=== PATIENT | female | born 1955 | race Caucasian/White ===

== ENCOUNTER 2016-11-15 08:15 | Day surgery (SDC) | payer BC ==
[~2016-11-15 08:15] MED LIST: Buffered Lidocaine 1% SYR 3ML* 3 ML/SYR SYRINGE INTRADERM ONE; Dexamethasone IV* 4 MG/ML 1 ML (4 MG) IV SLOW PU ONE; Famotidine IV* 10 MG/ML 2 ML (20 mg) IV ONE
[2016-11-15] MEDS ORDERED: ceFAZolin 2 GM PREMIX (*) 2 GM/50 ML BAG IVPB ONE (08:28)
[2016-11-15] MEDS ORDERED: Famotidine IV* 10 MG/ML 2 ML (20 mg) ONE (08:28)
[2016-11-15] MEDS ORDERED: Dexamethasone IV* 4 MG/ML 1 ML (4 MG) ONE (08:29)
[2016-11-15] MEDS ORDERED: Midazolam* 1 MG/ML 2 ML VIAL (2 MG) ONE (10:15)
[2016-11-15] MEDS ORDERED: Chloroprocaine 2%* 20 ML VIAL ONE (10:17)
[2016-11-15] MEDS ORDERED: Bupivacaine 0.25% SDV* 30 ML ONE (10:34)
[2016-11-15] MEDS ORDERED: Bupivacaine 0.25% EPI 200,000* 30 ML SDV ONE (10:34)
[2016-11-15] MEDS ORDERED: Phenylephrine IV* 40 MCG/ML 10 ML SYRINGE ONE (11:57)
[2016-11-15] MEDS ORDERED: methylPREDNISolone ACETATE 80* 80 MG/ML 1 ML VIAL ONE (12:24)
[2016-11-15] MEDS ORDERED: Ondansetron ODT TAB* 4 MG PO PRN (12:47)
[2016-11-15] MEDS ORDERED: fentaNYL* 50 MCG/ML 2 ML VIAL (100 MCG VIAL) IV PRN (12:47)
[2016-11-15] MEDS ORDERED: celeCOXIB CAP* 100 MG ONE (12:48)
[2016-11-15] MEDS ORDERED: celeCOXIB CAP* 200 MG PO ONE (12:48)
[2016-11-15 14:43] VITALS: BP 151/65
--- NOTE | 2016-11-19 22:49 | OP ---
OPERATIVE REPORT: DATE OF OPERATION: 11/15/16 DATE OF : 59 SURGEON: Danita Suarez MD PRINT CONTROLLER: CELINA Torre An automobile mechanic assistant was needed for the entirety of the case. ANESTHESIOLOGIST: Dr. Masters. ANESTHESIA: Spinal with local MAC. PRE-OP DIAGNOSIS: Medial meniscus tear. POST-OP DIAGNOSES: Arthritis as well as medial meniscal tear and lateral meniscus tear. OPERATIVE PROCEDURE: Arthroscopy with partial medial and partial lateral meniscectomy, chondroplast y of at least two compartments as well as plica excision. INDICATIONS: Marla is a 61-year-old female that has had right knee pain for several months. She h as tried injection and antiinflammatories. She has failed conservative management. She is very act dae and it is limiting her activities. Risks and benefits of the surgery were discussed at length an d she has elected to proceed with surgery. Risks included but were not limited to bleeding, infecti on, damage to nerves, vessels, surrounding structures, wound nonhealing, persistent pain, need for f urther surgery, risk of anesthesia, risk of DVT. She has elected to proceed. COMPLICATIONS: None. ESTIMATED BLOOD LOSS: Minimal. DESCRIPTION OF PROCEDURE: The patient was greeted in the preoperative area by the attending surgeon . Correct extremity was marked and consent was confirmed. The patient was brought back to the oper ating suite, where she underwent spinal anesthesia, which she tolerated without difficulty. Examina tion of the knee was then done, there was a small effusion on the right knee. Range of motion was 0 to 120 degrees. Stable ligamentous exam, calf was soft, nontender, mild effusion. An unsterile to urniquet was placed high on the proximal thigh. The lateral post was placed. The right leg was the n prepped and draped in the usual sterile fashion beginning with chlorhexidine soap, scrub, and alco hol wipe, and a final prep of ChloraPrep. After appropriate surgical pause indicating side, site, procedure, administration of antibiotics, th e anterolateral portal was made sharply with an 11 blade. Scope was introduced through the joint. The joint was examined. There were grade 1 to 2 changes of the patellofemoral joint with mild unsta ble flaps. The medial and lateral gutters were intact without any loose debris. Attention was dire cted to the medial compartment, where there were areas of grade 2 and grade 3 changes with unstable flaps. There was an unstable meniscal tear, which was a radial split tear that did not go all the w ay to the root. The shaver was then brought in using anteromedial portals. The ACL and PCL were in tact. The shaver was used to do a small chondroplasty of the medial femoral condyle to remove the u nstable flaps. The medial meniscus was debrided back using biters and rachell to a stable layer. The re were grade 2 to 3 changes in the medial femoral condyle and grade 2 changes of the lateral platea u. Attention was directed to the lateral meniscus, where there was unstable fraying as well as part ial tearing of the root, this was debrided back using the shaver. The lateral compartment had grade 0 to 1 changes on the femoral compartment and grade 1 to 2 changes on the tibial compartment. There was a large plica that was apparent on the medial aspect of the knee, which was debrided back using the shaver and the electrocautery device. Once this was released, it exposed the medial femoral co ndyle that had some mild inflammation from the rubbing. The undersurface of the patella then underw ent small chondroplasty to remove the unstable flaps. Once the debridement was complete, the portal s were closed with 3-0 nylon. The wound was intra-articularly injected with 80 mg of Depo-Medrol an d 30 cc of 0.25% Marcaine. Sterile dressings were applied. She was then awoken from anesthesia, she was watched during the entire case, and she was transferred to the PACU in stable condition. POSTOPERATIVE PLAN: She will be weightbearing as tolerated. She will be allowed to work on her ran ge of motion. We will place her on physical therapy after she returns for a postop visit. DVT prop hylaxis discussed but deferred due to no previous personal or family history. She will be discharge d on pain medication. I will see the patient back in 10 to 14 days. [id number]/[facility] #: [id number]
== END 2016-11-15 14:12 | disposition home or self-care (01) ==
LOC: OREAST 08:15
PROVIDERS: ATTEND Orthopaedic Surgery
DX: M23.231 Derangement of other medial meniscus due to old tear or injury, right knee (principal); M23.200 Derangement of unspecified lateral meniscus due to old tear or injury, right knee; Z87.891 Personal history of nicotine dependence; G47.33 Obstructive sleep apnea (adult) (pediatric)
CPT/HCPCS: 88304; A9270-GY; J0690; J1040; J1100; J2250; J2400

== ENCOUNTER 2017-08-04 12:26 | Inpatient (IN) | payer BC ==
--- NOTE | 2017-07-21 20:11 | HP ---
HISTORY AND PHYSICAL: DATE OF ADMISSION/SURGERY: 08/04/17 DATE OF OFFICE VISIT: 07/20/17 SURGEON: Belgica Gomez MD* (dictated by CELINA Balbuena). PROCEDURE: Right total knee arthroplasty. CHIEF COMPLAINT: Right knee pain. HISTORY OF PRESENT ILLNESS: Ms. Felton is a 61-year-old female with complaints of right knee pain secondary to advanced osteoarthritis. She has failed conservative management and has elected to proceed with a right total knee arthroplasty. PAST MEDICAL HISTORY: Sleep apnea, GERD, and diverticulitis. PAST SURGICAL HISTORY: Cholecystectomy, bilateral knee arthroscopies, colon resection, cyst removal from the posterior aspect of the left knee, and a bladder sling. CURRENT MEDICATIONS: 1. Meclizine 25 mg as needed every 8 hours. 2. Tegretol 200 mg twice daily. 3. VESIcare 10 mg daily. 4. Omeprazole 40 mg daily. 5. Probiotic daily. 6. Solodyn 115 mg 3 times a week. 7. Celebrex 200 mg twice daily. 8. Glucosamine/chondroitin. 9. Fiber. 10. Tylenol. 11. Carbamazepine 200 mg daily. ALLERGIES: To CODEINE causing nausea. FAMILY HISTORY: Diabetes, hypertension, and colon cancer. SOCIAL HISTORY: A 61-year-old female lives with her . 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 She does not smoke or use drugs. Uses occasional alcohol. REVIEW OF SYSTEMS: A complete 14-point review of systems was reviewed with the patient, was positive for GERD. She denies history of DVT, PE, or anesthesia problems. PHYSICAL EXAMINATION GENERAL: She is well developed, well nourished, in no acute distress. VITAL SIGNS: She stands 5 feet 6 inches tall, weighs 160 pounds. Her blood pressure is 124/60, heart rate is 80. HEENT: Normocephalic, atraumatic. NECK: Supple. PULMONARY: Lungs are clear to auscultation bilaterally. CARDIO: Regular rate and rhythm. ABDOMEN: Soft, nontender, and nondistended. MUSCULOSKELETAL: Right lower extremity skin is intact. There are no open wounds or abrasions. She has moderate joint effusion. Tenderness over the medial and lateral joint line. 2+ dorsalis pedis pulses, intact sensation, and her lower extremity muscle group strengths are intact at 5/5. NEUROLOGIC: Alert and oriented x3. Cranial nerves II through XII are intact. ASSESSMENT AND PLAN: Ms. Felton is a 61-year-old female with complaints of right knee pain secondary to advanced osteoarthritis. She has failed conservative management and has elected to proceed with a right total knee arthroplasty, which is scheduled for 08/04/[address] Gomez discussed the risks and benefits of the surgery at today's visit and all of her questions were answered. Coumadin, Percocet, and Colace were sent to the pharmacy for postoperative pain control and DVT prophylaxis. She will see Dr. Gomez back 2 weeks after the surgery. CELINA BALBUENA [id number]/[facility] #: [id number] MTDD
[~2017-08-04 12:26] MED LIST changes: +Buffered Lidocaine 0.9% SYRIN* 5 ML/SYR SYRINGE INTRADERM ONE; -Buffered Lidocaine 1% SYR 3ML* 3 ML/SYR SYRINGE INTRADERM ONE; -Dexamethasone IV* 4 MG/ML 1 ML (4 MG) IV SLOW PU ONE; +Metoclopramide TAB* 10 MG PO ONE; +Scopolamine 1.5 mg* PATCH TRANSDERM ONE
[2017-08-04] MEDS ORDERED: Metoclopramide TAB* 10 MG ONE (12:29)
[2017-08-04] MEDS ORDERED: Famotidine IV* 10 MG/ML 2 ML (20 mg) ONE (12:29)
[2017-08-04] MEDS ORDERED: Buffered Lidocaine 0.9% SYRIN* 5 ML/SYR SYRINGE ONE (12:29)
[2017-08-04] MEDS ORDERED: ceFAZolin 2 GM PREMIX (*) 2 GM/50 ML BAG IVPB ONE (12:30)
[2017-08-04] MEDS ORDERED: fentaNYL* 50 MCG/ML 2 ML VIAL (100 MCG VIAL) ONE (13:36)
[2017-08-04] MEDS ORDERED: Midazolam* 1 MG/ML 5 ML VIAL (5 MG) ONE (13:36)
[2017-08-04] MEDS ORDERED: Ketorolac INJ* 30 MG/ML 1 ML VIAL ONE (13:36)
[2017-08-04] MEDS ORDERED: Propofol* 10 MG/ML 20 ML BTL IV PUSH ONE (13:36)
[2017-08-04] MEDS ORDERED: Dexamethasone IV* 4 MG/ML 1 ML (4 MG) ONE (13:36)
[2017-08-04] MEDS ORDERED: Ondansetron INJ* 2 MG/ML VIAL ONE (13:36)
[2017-08-04] MEDS ORDERED: KETAMINE HCL* 50 MG/ML 10 ML VIAL ONE (13:36)
[2017-08-04] MEDS ORDERED: Lidocaine 2% PF * 5 ML VIAL ONE (13:36)
[2017-08-04] MEDS ORDERED: HYDROmorphone INJ* 1 MG/ML CARPUJECT SYRINGE ONE (13:39)
[2017-08-04] MEDS ORDERED: Scopolamine PATCH Remove* 1 NOTE MISC PATCH OFF SCH (15:00)
[2017-08-04] MEDS ORDERED: Scopolamine 1.5 mg* PATCH TRANSDERM SCH (15:00)
[2017-08-04] MEDS ORDERED: Scopolamine 1.5 mg* PATCH ONE (15:01)
[2017-08-04] MEDS ORDERED: Morphine PF AMP (0.5MG/ML)* 5 MG/10 ML AMP ONE (15:59)
[2017-08-04] MEDS ORDERED: Bupivacaine 0.5% SDV PF* 30 ML VIAL ONE (15:59)
[2017-08-04] MEDS ORDERED: Midazolam* 1 MG/ML 2 ML VIAL (2 MG) ONE ×2 (16:27→17:59)
[2017-08-04] MEDS ORDERED: Phenylephrine IV* 40 MCG/ML 10 ML SYRINGE ONE (16:46)
[2017-08-04] MEDS ORDERED: Propofol* 500 MG/50 ML BTL ONE (16:47)
[2017-08-04] MEDS ORDERED: Phenylephrine INJ* 10 MG/ML 1 ML VIAL (10 MG) ONE (16:59)
[2017-08-04] MEDS ORDERED: PROCHLORPERAZINE INJ 5 MG/ML 2 ML VIAL IV PRN (17:26)
[2017-08-04] MEDS ORDERED: diPHENhydraMINE IV* 50 MG/ML 1 ml VIAL (BENADRYL) IV PRN ×2 (17:26→17:28)
[2017-08-04] MEDS ORDERED: fentaNYL* 50 MCG/ML 2 ML VIAL (100 MCG VIAL) IV PRN (17:26)
[2017-08-04] MEDS ORDERED: Ondansetron INJ* 2 MG/ML VIAL IV PRN ×2 (17:26→17:28)
[2017-08-04] MEDS ORDERED: Ketorolac INJ* 30 MG/ML 1 ML VIAL IV PRN (17:28)
[2017-08-04] MEDS ORDERED: EPHEDrine (Pressors)* 50 MG/ML VIAL IV PUSH PRN (17:28)
[2017-08-04] MEDS ORDERED: oxyCODONE/Acetamin 5/325 MG* TAB PO PRN (17:28)
[2017-08-04] MEDS ORDERED: Naloxone* 0.4 MG/ML 1 ML VIAL IV PRN (17:34)
[2017-08-04] MEDS ORDERED: Ropivacaine* 300 MG in NS 0.9% 250 ML* 240 ML EPIDURAL SCH (18:00)
[2017-08-04] MEDS ORDERED: Polyethylene Glycol 3350* 17 GM PACKET PO PRN (18:09)
[2017-08-04] MEDS ORDERED: Acetaminophen TAB* 325 MG PO PRN (18:09)
[2017-08-04] MEDS ORDERED: Bisacodyl SUPP* 10 MG SUPP PR PRN (18:09)
--- NOTE | 2017-08-04 19:36 | RAD ---
INDICATION: Total right knee replacement surgery. TECHNIQUE: 2 views of the right knee were obtained. FINDINGS: The patient is status post total right knee replacement surgery. The bones and prostheses are in normal alignment. There is a surgical drain anterior to the distal femur. There is a small amount of air within the soft tissues consistent with the patient's recent surgery. IMPRESSION: STATUS POST TOTAL RIGHT KNEE REPLACEMENT SURGERY.
[2017-08-04] MEDS ORDERED: NON FORMULARY MED* (Omeprazole [Omeprazole] 40 MG) PO SCH (21:00)
[2017-08-04] MEDS ORDERED: Warfarin TAB(*) 6 MG PO ONE (22:00)
[2017-08-04] MEDS: Docusate CAP* 100 MG PO SCH (22:25)
--- NOTE | 2017-08-04 22:55 | CONS ---
CC: Dr. Gomez; Sejal Cheng NP * CONSULTATION REPORT: DATE OF CONSULT: 08/04/17 PRIMARY CARE PROVIDER: Sejal Cheng NP ATTENDING PHYSICIAN: Dr. Edilson Selby (dictated by Aba Sheth NP). PHYSICIAN REQUESTING CONSULT: Dr. Belgica Gomez. REASON FOR CONSULT: Co-medical management in a patient with a history of sleep apnea. HISTORY OF PRESENT ILLNESS: Ms. Felton is a 62-year-old female with a past medical history significant for untreated sleep apnea, GERD, diverticulitis, trigeminal neuralgia, migraines, rosacea, IBS, vitamin D deficiency, and degenerative joint disease, who presented to the hospital today for an elective right total knee arthroplasty with Dr. Gomez. The patient states that leading up to the surgery, she has been in her usual state of health. She denies any fever, chills, shortness of breath, chest pain, nausea, vomiting, and diarrhea. Postoperatively, she is feeling well, denies any pain, but reports numbness and tingling to bilateral lower extremities due to her spinal anesthesia. The hospitalists were asked to assist with the management of this patient during her postoperative period. PAST MEDICAL HISTORY: 1. Sleep apnea, untreated. 2. GERD. 3. Diverticulitis. 4. Trigeminal neuralgia. 5. History of urinary stress incontinence. 6. Migraine. 7. Rosacea. 8. IBS. 9. Vitamin D deficiency. 10. Degenerative joint disease. PAST SURGICAL HISTORY: 1. Status post cholecystectomy in 2011. 2. Status post bilateral knee arthroscopies. 3. Status post colon resection, 2012. 4. Status post cyst removal from posterior aspect of her left knee at age 10. 5. Status post bladder sling in 2013. HOME MEDICATIONS: Include: 1. Meclizine 25 mg oral as needed every 8 hours for dizziness. 2. Tegretol 100 mg oral every morning. 3. VESIcare 10 mg oral daily. 4. Omeprazole 40 mg oral daily 5. Probiotic 4 mg oral every evening. 6. Solodyn mg 3 times weekly. 7. Celebrex 200 mg oral every evening. 8. Glucosamine chondroitin 1 tablet oral twice daily. 9. Fiber 625 mg oral every evening. 10. Tylenol 500 mg oral daily as needed for pain. ALLERGIES: CODEINE causes nausea. FAMILY HISTORY: The patient's mother had a history of diabetes and suspected colon cancer. Her maternal grandfather had a history of myocardial infarction. Her maternal aunt with a history of colon cancer. Her paternal family history is unknown. SOCIAL HISTORY: She is a former smoker. She quit smoking 15 years ago. Prior to that, she had a 5-abhf-v-day 20-year smoking history. She drinks 1 to 2 alcoholic beverages daily. She denies recreational drug use. She lives with her . Her daughter, Glenis, and sons, Lela and Larry, will be her surrogate decision makers in the event if she is unable to make decisions for herself. REVIEW OF SYSTEMS: I performed a 14-point review of systems. The pertinent positives and negatives are mentioned in the history of present illness. The remaining review of systems is negative. PHYSICAL EXAM: Vital Signs: Temperature 98.4, heart rate 81, respiratory rate 16, O2 sat 100% on room air, blood pressure 145/75. General Appearance: The patient is alert, pleasant, appears to be in no acute distress. HEENT: Normocephalic, atraumatic. Pupils are equal, round, and reactive to light. Extraocular movements are intact. Respiratory: There is no accessory muscle use and the lungs are clear to auscultation bilaterally. Cardiovascular: Regular rate and rhythm. S1, S2 are crisp. There are no murmurs, rubs, or gallops heard. Abdomen: Soft, nontender, nondistended. Bowel sounds are present x4. Extremities: There is no lower extremity edema. DP and PT pulses are 2+ and symmetric. Musculoskeletal: There is no clubbing or cyanosis noted. The patient exhibits equal strength in all extremities. She does have some decreased sensation and movement in her lower extremities due to her spinal anesthesia. She is able to bend both knees. Skin: The patient has a dressing to her right knee that is clean, dry, and intact. Neurological: Cranial nerves II through XII are grossly intact. The patient is able to move all extremities, although her lower extremity movement is limited at this time. Psychological: The patient is calm and cooperative. DIAGNOSTIC STUDIES/LAB DATA: Preoperative labs from 06/03/17, sodium 135, potassium 4.2, chloride 101, CO2 26, BUN 22, creatinine 0.69, glucose 86. White blood cell count 6.8, hemoglobin 12.4, hematocrit 37, and platelet count 310. Preoperative urinalysis is significant for 1+ blood, squamous epithelial cells present, and hyaline casts present. IMPRESSION: Ms. Felton is a 62-year-old female with past medical history significant for untreated sleep apnea, gastroesophageal reflux disease, diverticulitis, trigeminal neuralgia, migraines, rosacea, irritable bowel syndrome, vitamin D deficiency, and degenerative joint disease, who presented to the hospital for an elective right total knee arthroplasty with Dr. Gomez today. The hospitalists were asked to assist with the co-medical management of this patient during her hospitalization. ASSESSMENT/PLAN: 1. Degenerative joint disease. The patient is status post right total knee arthroplasty today. She will have occupational therapy and physical therapy starting tomorrow. She will have a urinary catheter in place through postop day 1. We will trend her hemoglobin and hematocrit. She will be provided with pain management and bowel regimen. Management will be per Orthopedic Surgery. 2. Sleep apnea. The patient has untreated sleep apnea. She states she is unable to tolerate the CPAP. The patient will get capnography monitoring overnight and she will remain in the recovery room for 2 hours postop. 3. Trigeminal neuralgia. The patient will be continued on her home Tegretol. 4. History of gastroesophageal reflux disease. The patient will be continued on her home omeprazole. 5. Fluids, electrolytes, and nutrition. The patient will be on a regular diet. 6. DVT prophylaxis. The patient will be on Lovenox bridged to warfarin per Orthopedic Surgery. 7. Code status. Full code. 9. Disposition. Inpatient with disposition per Orthopedic Surgery. TIME SPENT: Time for this consultation was approximately 45 minutes and greater than half of that was spent with the patient discussing the medications , past medical history, and the events leading up to her arrival to the hospital today. ABA SHETH, ANGI [id number]/[facility] #: [id number] MTDSandy
[2017-08-05] MEDS: ceFAZolin 1 GM VIAL(*) 1 GM in NS 0.9% 50 ML* 50 ML IVPB SCH ×3 (00:05→17:19)
[2017-08-05] MEDS: oxyCODONE/Acetamin 5/325 MG* TAB PO PRN ×6 (03:48→23:49)
[2017-08-05 06:24] LABS: Hematocrit 30 % (35-47); Hemoglobin 10.3 g/dl (12.0-16.0)
[2017-08-05 06:42] LABS: BUN/Creatinine Ratio 15.7 (8-20); Calcium 8.9 mg/dL (8.6-10.3); EGFR African American 109.8 (>60); EGFR Non-African American 85.4 (>60); Potassium 3.8 mmol/L (3.5-5.0)
[2017-08-05] MEDS ORDERED: Omeprazole CAP* 20 MG PO SCH (07:30)
[2017-08-05] MEDS ORDERED: oxyCODONE/Acetamin 5/325 MG* TAB PO PRN (07:35)
[2017-08-05] MEDS: Vitamin THERAPEUTIC TAB PO SCH (07:35)
[2017-08-05] MEDS: Docusate CAP* 100 MG PO SCH ×2 (07:35→19:43)
--- NOTE | 2017-08-05 07:36 | PN ---
Progress Note - Progress Note Date of Service: 08/05/17 SOAP: Subjective: Pt. is alert, reports pain is controlled. Objective: RLE - drain removed, tip intact. distally NVI with +df/pf, full slt, 2+ dp pulse. Vital Signs: Temp Pulse Resp BP Pulse Ox 97.5 F 67 18 123/51 100 08/05/17 03:40 08/05/17 03:40 08/05/17 06:26 08/05/17 03:40 08/05/17 05:44 Laboratory Results - last 24 hr 08/04/17 08/05/17 08/05/17 12:58 05:50 05:50 Hgb 10.3 L Hct 30 L INR (Anticoag Therapy) 0.99 1.02 Sodium Potassium Chloride Carbon Dioxide Anion Gap BUN Creatinine Est GFR ( Amer) Est GFR (Non-Af Amer) BUN/Creatinine Ratio Glucose Calcium 08/05/17 05:50 Hgb Hct INR (Anticoag Therapy) Sodium 133 Potassium 3.8 Chloride 101 Carbon Dioxide 25 Anion Gap 7 BUN 11 Creatinine 0.70 Est GFR ( Amer) 109.8 Est GFR (Non-Af Amer) 85.4 BUN/Creatinine Ratio 15.7 Glucose 100 Calcium 8.9 Assessment: 62 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
--- NOTE | 2017-08-05 08:34 | OP ---
DATE OF OPERATION: 08/04/17 - ROOM #342 DATE OF : 59. SURGEON: Belgica Gomez MD. FAMILY PRESERVATION OFFICER: CELINA Walters. Ms. Mcnally did help throughout the procedure with preparation of the leg, wound retraction, manipulation of the knee, and wound closure. ANESTHESIOLOGIST: Dr. Lutz. ANESTHESIA: Spinal. PREOPERATIVE DIAGNOSIS: Severe endstage degenerative osteoarthritis of the right knee joint. POSTOPERATIVE DIAGNOSIS: Severe endstage degenerative osteoarthritis of the right knee joint. OPERATIVE PROCEDURE: Right total knee arthroplasty. TOURNIQUET TIME: 47 minutes. COMPLICATIONS: None. SPECIMEN: Bone and cartilage from the right knee joint, sent to Pathology. ESTIMATED BLOOD LOSS: 200 mL. HARDWARE USED: This is cemented [employer] total knee arthroplasty hardware. Two packages of Simplex bone cement. For the femur, size 4 narrow right, posterior stabilized Legion Oxinium femoral component. For the tibia, a size 3 right tibial component. For the insert, a 9 mm posterior stabilized articular insert, size 3-4. For the patella, 32 mm 7.5 thickness, 3-peg all- poly patella. BRIEF HISTORY/INDICATIONS: Ms. Felton is a 62-year-old female with over 1 year of severe right knee pain. She underwent arthroscopy and had multiple meniscal tears. At the time of arthroscopy, she was found to have severe patellofemoral and medial compartment arthritis. Plain radiographs showed joint space to be maintained. MRI shows severe degeneration of the cartilage in the medial patellofemoral compartments as well. The patient failed conservative treatment with the antiinflammatories, pain medication, intraarticular steroid injections, intraarticular lubricate injections, ambulatory assistive devices, brace wear, and physical therapy. She elected to undergo right total knee arthroplasty due to continued pain and decreased quality of life. Informed consent was obtained from the patient. She understood the risks of the procedure included, but were not limited to bleeding , infection, damage to nearby structures, continued pain, need for further surgery, intraoperative fracture, nerve palsy, hardware failure or loosening, knee stiffness, loss of motion, stroke, heart attack, blood clot, and . She wished to proceed. INTRAOPERATIVE FINDINGS: Intraoperatively, the patient was noted to have severe arthritis with complete loss of cartilage in the patellofemoral and medical compartments. DESCRIPTION OF PROCEDURE: Ms. Felton was identified in the preanesthesia unit. Her right lower extremity was marked as the correct operative side. Informed consent was signed and placed in the chart. The patient was taken to the operating room and placed under spinal anesthesia. A Cooper catheter was placed. A tourniquet was placed on the right thigh. Right lower extremity was prepped and draped in the usual sterile fashion. Preop time-out was made to correctly identify the patient's side and site. Appropriate perioperative antibiotics were given within 1 hour of incision. The tourniquet was inflated and total tourniquet time was 47 minutes. A midline 12 cm incision was made with a 10 blade and carried down to the extensor mechanism. A new 10 blade was used to make a standard medial parapatellar arthrotomy. Patella was subluxed laterally. Electrocautery was used to subperiosteally elevate the soft tissue off the superomedial tibia in the midsagittal plane. Osteophytes were carefully removed along the medial tibial plateau. The knee was flexed up. The anterior horn of the lateral meniscus and ACL were sharply released. A drill was used to enter the distal femur. Distal femoral intramedullary cutting guide was pinned onto the distal femur. Oscillating saw was used to make the appropriate distal femoral cut. Next, the external rotation guide was pinned on the distal femur and the femur was sized to a size 4. A size 4 multicutting jig was pinned on the distal femur. Oscillating saw was used to make the appropriate 4 chamfer cuts. The tibial was subluxed anteriorly and PCL was completely released. Extramedullary tibial cutting guide was pinned on the proximal tibia. Oscillating saw was used to make the proximal tibial cut perpendicular to the mechanical axis of the tibia. The bone was carefully removed. The knee was brought out into full extension and had excellent fit of the spacer block in full extension. The medial and lateral ligaments were well balanced. Flexion and extension gaps were well balanced. The knee was flexed up. Lamina sprayer machine was placed both medially and laterally. Any remaining meniscus was carefully removed using electrocautery. Posterior osteophytes were removed with the curved osteotome. A tibial tray and drop michael were placed and confirmed a satisfactory tibial cut once again. A trial size 4 narrow right femoral component was impacted onto the distal femur and had excellent fit. The box for the posterior stabilized implant was prepared using a reamer and box cut osteotome. Size 4 tibial trial with a 9-mm insert trial was placed and the knee was taken through range of motion. The knee had full extension to 130 degrees of flexion with satisfactory patellofemoral tracking. The patella was everted. 7 mm of patellar bone and cartilage were carefully removed with an oscillating saw. The patella was sized to a size 32. A size 32 patellar trial with 7.5 thickness was chosen and placed. The knee was taken through a range of motion and there was satisfactory patellofemoral tracking. All trials were carefully removed. The tibia was subluxed anteriorly and sized to a size 3. Proximal tibia was prepared using a size 3 keel punch. All bony cut surfaces were copiously irrigated with sterile saline and dried. Final implants were cemented into place, starting with the tibia, followed by the femur and last the patella. A 9-mm insert trial was placed and the knee was brought out into full extension. Tourniquet was turned down at 47 minutes. The knee was copiously irrigated with sterile saline. Electrocautery was used to obtain meticulous hemostasis. Once the cement had fully cured, the insert trial was removed and the excess cement was carefully removed from around the capsule and hardware. Final insert chosen was a 9 mm posterior stabilized articular insert, size 3-4. This was locked into position on the tibial tray. Stability of the insert was checked and rechecked and noted to be stable. The knee was copiously irrigated with sterile saline once again. The extensor mechanism was closed over a medium Hemovac drain using interrupted #1 Vicryl. The rest of the incision was closed in a layered fashion using 0 and 2-0 Vicryls. Skin was closed using running 3-0 nylon suture. Sterile Xeroform, 4x4s, and Webril were used to cover the incision. Deny wrap and cold pack were placed over this. The patient's anesthesia was reversed without difficulty. She was taken to the PACU in stable condition. Intended weightbearing will be weightbearing as tolerated. Intended DVT prophylaxis will be Coumadin with a Lovenox bridge. [id number]/[facility] #: [id number] VICKY
[2017-08-05] MEDS: carBAMazepine ER TAB(*) 100 MG PO SCH (10:27)
[2017-08-05] MEDS: CMCS: Solifenacin(NF) 5 MG TAB PO SCH (10:33)
[2017-08-05] MEDS: Morphine INJ* 2 MG/ML 1 ML SYRINGE (TWO MG - NEW SYRINGE VERSION) IV PRN ×2 (12:19→13:23)
[2017-08-05] MEDS ORDERED: Ketorolac INJ* 30 MG/ML 1 ML VIAL IV PUSH PRN (12:58)
[2017-08-05] MEDS ORDERED: Ketorolac INJ* 30 MG/ML 1 ML VIAL ONE (13:02)
[2017-08-05] MEDS ORDERED: Ondansetron INJ* 2 MG/ML VIAL ONE (13:02)
[2017-08-05] MEDS: Ondansetron INJ* 2 MG/ML VIAL IV PRN ×2 (13:05→23:47)
[2017-08-05] MEDS ORDERED: Warfarin TAB(*) 4 MG PO ONE (17:00)
--- NOTE | 2017-08-05 17:11 | PN ---
Subjective Date of Service: 08/05/17 Interval History: Patient seen and examined at bedside. Pt states that she is feeling well and her pain is better controlled this evening then it was this AM. Denies fever, chills, shortness of breath, chest discomfort, N/V/D. Family History: Unchanged from Admission Social History: Unchanged from Admission Past Medical History: Unchanged from Admission Objective Active Medications: Acetaminophen (Tylenol Tab*) 650 mg PO Q4H PRN Reason: FEVER/PAIN Bisacodyl (Dulcolax Supp*) 10 mg OR DAILY PRN Reason: constipation Carbamazepine (Tegretol Xr Tab(*)) 100 mg PO QAM [facility] Docusate Sodium (Colace Cap*) 100 mg PO BID [facility] Enoxaparin Sodium (Lovenox(*)) 30 mg SUBCUT Q24H [facility] Lactated Ringer's (Lactated Ringers 1000 Ml Bag*) 1,000 mls @ 100 mls/hr IV PER RATE [facility] Ketorolac Tromethamine (Toradol Inj*) 30 mg IV PUSH Q6H PRN Reason: PAIN Lactobacillus Rhamnosus (Culturelle*) 1 cap PO QPM [facility] Magnesium Hydroxide (Milk Of Magnesia Liq*) 30 ml PO Q6H PRN Reason: constipation Morphine Sulfate (Morphine Inj (Syringe)*) 2 mg IV Q1H PRN Reason: PAIN Multivitamins (Theragran Tab*) 1 tab PO DAILY [facility] Omeprazole (Prilosec Cap*) 40 mg PO DAILY@0730 [facility] Ondansetron HCl (Zofran Inj*) 4 mg IV Q6H PRN Reason: NAUSEA Oxycodone HCl (Roxycodone Tab*) 10 mg PO Q6H PRN Reason: PAIN - BREAKTHROUGH Oxycodone/Acetaminophen (Percocet 5/325 Tab*) 1 tab PO Q4H PRN Reason: PAIN Oxycodone/Acetaminophen (Percocet 5/325 Tab*) 2 tab PO Q4H PRN Reason: PAIN Pharmacy Profile Note (Scopolomine Patch Remove*) 1 note PATCH OFF .AFTER 72 HOURS [facility] Stop: 08/07/17 14:59 Pharmacy Profile Note (Coumadin Daily Reminder*) 1 note FOLLOW UP 1700 [facility] Polyethylene Glycol/Electrolytes (Miralax*) 17 gm PO DAILY PRN Reason: Constipation Solifenacin (Vesicare(Nf)) 10 mg PO QAM [facility] Vital Signs 08/04/17 08/04/17 08/04/17 18:40 18:45 18:50 Temperature 97.7 F Pulse Rate 81 79 75 Respiratory 14 16 16 Rate Blood Pressure 139/68 132/68 134/63 (mmHg) O2 Sat by Pulse 98 99 100 Oximetry 08/04/17 08/04/17 08/04/17 18:55 19:00 19:15 Temperature Pulse Rate 71 67 73 Respiratory 16 14 16 Rate Blood Pressure 138/74 145/67 145/83 (mmHg) O2 Sat by Pulse 100 100 100 Oximetry 08/04/17 08/04/17 08/04/17 19:30 19:45 20:00 Temperature Pulse Rate 65 62 60 Respiratory 16 15 16 Rate Blood Pressure 142/59 139/62 135/58 (mmHg) O2 Sat by Pulse 96 96 95 Oximetry 08/04/17 08/04/17 08/04/17 20:15 20:30 20:45 Temperature Pulse Rate 65 60 64 Respiratory 14 16 16 Rate Blood Pressure 127/63 124/60 130/65 (mmHg) O2 Sat by Pulse 94 96 98 Oximetry 08/04/17 08/04/17 08/04/17 21:15 21:30 22:29 Temperature 97.7 F 97.7 F Pulse Rate 63 76 Respiratory 16 16 18 Rate Blood Pressure 122/58 112/49 (mmHg) O2 Sat by Pulse 98 98 Oximetry 08/04/17 08/04/17 08/05/17 22:34 23:31 00:00 Temperature 98.1 F Pulse Rate 63 Respiratory 16 16 16 Rate Blood Pressure 108/46 (mmHg) O2 Sat by Pulse 98 96 94 Oximetry 08/05/17 08/05/17 08/05/17 01:25 01:38 02:00 Temperature 97.9 F Pulse Rate 70 Respiratory 16 14 12 Rate Blood Pressure 100/47 (mmHg) O2 Sat by Pulse 100 100 Oximetry 08/05/17 08/05/17 08/05/17 03:40 03:48 03:51 Temperature 97.5 F Pulse Rate 67 Respiratory 16 16 16 Rate Blood Pressure 123/51 (mmHg) O2 Sat by Pulse 98 100 Oximetry 08/05/17 08/05/17 08/05/17 05:44 06:26 07:22 Temperature 97.5 F Pulse Rate 59 Respiratory 18 18 16 Rate Blood Pressure 109/47 (mmHg) O2 Sat by Pulse 100 100 Oximetry 08/05/17 08/05/17 08/05/17 07:35 08:00 10:00 Temperature Pulse Rate Respiratory 16 16 16 Rate Blood Pressure (mmHg) O2 Sat by Pulse 100 Oximetry 08/05/17 08/05/17 08/05/17 10:10 11:13 12:19 Temperature 98.3 F Pulse Rate 66 Respiratory 18 18 Rate Blood Pressure 135/58 (mmHg) O2 Sat by Pulse 100 98 Oximetry 08/05/17 08/05/17 08/05/17 13:23 14:08 16:06 Temperature Pulse Rate Respiratory 16 16 Rate Blood Pressure (mmHg) O2 Sat by Pulse 98 Oximetry Oxygen Devices in Use Now: None Appearance: NAD, sitting up in a chair. Ears/Nose/Mouth/Throat: Mucous Membranes Moist Respiratory: Symmetrical Chest Expansion and Respiratory Effort, Clear to Auscultation Cardiovascular: NL Sounds; No Murmurs; No JVD, RRR Abdominal: NL Sounds; No Tenderness; No Distention Extremities: - - Trace to mild edema to right LE Skin: - - Dressing to right knee clean, dry and intact Neurological: Alert and Oriented x 3, NL Muscle Strength and Tone Lines/Tubes/Other Access: Clean, Dry and Intact Peripheral IV - site benign Nutrition: Taking PO's Result Diagrams: 08/05/17 05:50 08/05/17 05:50 Assess/Plan/Problems-Billing Assessment: Ms. Felton is a 62 yo female with PMH significant for untreated sleep apnea, GERD, diverticulitis, trigeminal neuralgia, migraines, rosacea, IBS, and DJD who presented to the hospital for an elective right total arthroplasty with Dr. Gomez on 08/04/17. - Patient Problems (1) Status post total right knee replacement Code(s): Z96.651 - PRESENCE OF RIGHT ARTIFICIAL KNEE JOINT SNOMED Code(s): 9956619523416 Comment: - POD #1, Management per Orthopedics - [facility] - Continue pain management, bowel regimen, OT/OT (2) Sleep apnea Code(s): G47.30 - SLEEP APNEA, UNSPECIFIED SNOMED Code(s): 69300664 Comment: - Untreated (3) Trigeminal neuralgia Code(s): G50.0 - TRIGEMINAL NEURALGIA SNOMED Code(s): 11271677 Comment: - Continue tegretol (4) GERD (gastroesophageal reflux disease) Code(s): K21.9 - GASTRO-ESOPHAGEAL REFLUX DISEASE WITHOUT ESOPHAGITIS SNOMED Code(s): 658739447 Comment: - Continue omeprazole and PRN tums (5) DVT prophylaxis Code(s): IUL4524 - SNOMED Code(s): 787958553 Comment: - Lovenox bridge to warfarin (6) Full code status Code(s): Z78.9 - OTHER SPECIFIED HEALTH STATUS SNOMED Code(s): 477160478 Status and Disposition: Inpatient. Disposition per Orthopedics. Thank you for this consultation. We will sign off at this time, please call with any questions.
[2017-08-05] MEDS ORDERED: Calcium Carbonate CHEW TAB* 500 MG (TUMS) PO PRN (17:15)
[2017-08-05] MEDS ORDERED: Omeprazole CAP* 20 MG ONE (17:19)
[2017-08-05] MEDS: oxyCODONE TAB* 5 MG TAB PO PRN (17:20)
[2017-08-05] MEDS: Omeprazole CAP* 20 MG PO SCH ×2 (17:21→19:43)
[2017-08-05] MEDS ORDERED: Lactobacillus Acidophilu (GG)* 1 CAP CAP PO SCH (18:00)
[2017-08-05] MEDS ORDERED: Enoxaparin(*) 30 MG/0.3 ML SYR SUBCUT SCH (20:00)
[2017-08-05] MEDS: Magnesium Hydroxide LIQ* 30 ML UDC PO PRN (20:11)
[2017-08-06] MEDS: oxyCODONE/Acetamin 5/325 MG* TAB PO PRN ×3 (03:39→12:47)
[2017-08-06] MEDS: oxyCODONE TAB* 5 MG TAB PO PRN ×2 (06:43→14:16)
--- NOTE | 2017-08-06 07:53 | PN ---
Progress Note - Progress Note Date of Service: 08/06/17 SOAP: Subjective: Pt. is alert, pain more controlled. Objective: RLE - dressing changed, inc c/d/i. distally nvi. Vital Signs: Temp Pulse Resp BP Pulse Ox 98.7 F 91 18 123/51 98 08/06/17 03:37 08/06/17 03:37 08/06/17 06:43 08/06/17 03:37 08/06/17 03:37 Assessment: 62 yo F pod 2 s/p RTKA Plan: wbat pt/ot vitals stable am labs pending plan d/c to home today with vns
[2017-08-06] MEDS: Ondansetron INJ* 2 MG/ML VIAL IV PRN (08:01)
[2017-08-06 08:41] LABS: Hematocrit 29 % (35-47); Hemoglobin 10.1 g/dl (12.0-16.0)
[2017-08-06] MEDS: carBAMazepine ER TAB(*) 100 MG PO SCH (08:55)
[2017-08-06] MEDS: Docusate CAP* 100 MG PO SCH (08:55)
[2017-08-06] MEDS: Vitamin THERAPEUTIC TAB PO SCH (08:55)
[2017-08-06] MEDS: Omeprazole CAP* 20 MG PO SCH (08:55)
[2017-08-06] MEDS: CMCS: Solifenacin(NF) 5 MG TAB PO SCH (08:56)
[2017-08-06] MEDS ORDERED: Omeprazole CAP* 20 MG PO SCH (09:00)
[2017-08-06] MEDS: Magnesium Hydroxide LIQ* 30 ML UDC PO PRN (10:30)
[2017-08-06 12:39] VITALS: BP 147/60
--- NOTE | 2017-08-07 03:43 | DS ---
AMENDED REPORT NOW INCLUDES COSIGNER DESIGNATION - ESIGNED BEFORE ADJUSTMENT DISCHARGE SUMMARY: DATE OF ADMISSION: 08/04/17 DATE OF DISCHARGE: 08/06/17 PRINCIPAL DIAGNOSIS: Severe end-stage osteoarthritis of the right knee. DISCHARGE DIAGNOSIS: Severe end-stage osteoarthritis of the right knee. SURGEON: Dr. Belgica Gomez.* (DICTATED BY CELINA BALBUENA) HISTORY OF PRESENT ILLNESS: Ms. Felton is a 62-year-old female with complaints of right knee pain secondary to severe end-stage osteoarthritis. She has failed conservative management and elected to proceed with a right total knee arthroplasty. HOSPITAL COURSE: Ms. Felton is a 62-year-old female who was admitted electively to the hospital on 08/04/17 and underwent a right total knee arthroplasty. She tolerated the procedure well with no complications. Postoperatively, she was placed on Lovenox and Coumadin for DVT prophylaxis. On postoperative day 1, her H and H was 10 and 30, and on postoperative day 2, H and H was 10 and 29. Her INR went from 0.9 to 1.45 on the day of discharge. Her vital signs remained stable and she was discharged home on 08/06/17. DISCHARGE MEDICATIONS: 1. Percocet 5/325 one to two tabs every 4 to 6 hours. 2. Oxycodone 5 mg 1 tab every 4 to 6 hours as needed for breakthrough pain. 3. Colace 100 mg 2 to 3 tabs daily for constipation. 4. Aspirin 325 twice a day for 4 weeks. 5. Carbamazepine 100 mg daily. 6. Prilosec 40 mg daily. 7. VESIcare 10 mg daily. PHYSICAL EXAM UPON DISCHARGE: She was afebrile. Her vital signs were stable. Her incision was clean and dry. She was ambulating well with the aid of a walker. She was distally neurovascularly intact. DISCHARGE INSTRUCTIONS: She was discharged to home. She was given a prescription for Percocet to take every 4 to 6 hours for pain as well as oxycodone 5 mg every 4 to 6 hours for breakthrough pain. She was given Colace for constipation and she was asked to take aspirin 325 twice a day for 4 weeks for DVT prophylaxis. She is weightbearing as tolerated and she will follow with Dr. Gomez in 2 weeks. CEILNA BALBUENA [id number]/[facility] #: [id number] [facility]andy
[2017-08-07] MEDS ORDERED: Scopolamine PATCH Remove* 1 NOTE MISC PATCH OFF ONE (06:00)
== END 2017-08-06 15:00 | disposition home health service (06) | DRG 302 ==
LOC: AA 12:26 → SSU 21:20
PROVIDERS: ADMIT Orthopaedic Surgery Adult Reconstructive Orthopaedic Surgery; ATTEND Orthopaedic Surgery Adult Reconstructive Orthopaedic Surgery
PROC: 0SRC0J9 Replacement of Right Knee Joint with Synthetic Substitute, Cemented, Open Approach (ICD-10-PCS; principal; 2017-08-04 15:00)
DX: M17.11 Unilateral primary osteoarthritis, right knee (principal); G47.33 Obstructive sleep apnea (adult) (pediatric); H40.9 Unspecified glaucoma; G50.0 Trigeminal neuralgia; I73.00 Raynaud's syndrome without gangrene; G89.29 Other chronic pain; M25.761 Osteophyte, right knee; K58.9 Irritable bowel syndrome, unspecified; M54.5 Low back pain; K21.9 Gastro-esophageal reflux disease without esophagitis; Z90.49 Acquired absence of other specified parts of digestive tract; Z88.6 Allergy status to analgesic agent; Z83.3 Family history of diabetes mellitus; Z82.49 Family history of ischemic heart disease and other diseases of the circulatory system; Z80.0 Family history of malignant neoplasm of digestive organs; Z72.89 Other problems related to lifestyle; Z87.891 Personal history of nicotine dependence
CPT/HCPCS: 36415; 80048; 85014; 85018; 85610; 94760; A9270-GY; C1776; J0690; J1100; J1170; J1650; J1885; J2250; J2270; J2405; J2704; J2795; J3010

== ENCOUNTER 2018-12-08 15:38 | Emergency (ER) | payer BC ==
--- OUTSIDE RECORDS SUMMARY | 2018-12-08 15:47 | XMS REPORT | Continuity of Care Document ---
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 Payers Date Identification Numbers Payment Provider Subscriber Effective: 2011 Policy Number: [id number] [facility] Commercial Marla Felton PayID: [id number] [facility] [address] [place] [address] Advance Directives Description No Information Available Problems Date Description Provider Status Onset: 03/01/2013 Degenerative joint disease Lizbet Wild MD Active involving multiple joints Onset: 05/10/2011 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 Onset: 06/30/2010 Vitamin D deficiency Lizbet Wild MD Active Onset: 06/16/2010 Gastroesophageal reflux disease Lizbet Wild MD Active Onset: 07/18/2017 Irritable bowel syndrome with Sejal Cheng NP Active diarrhea Onset: 07/18/2017 Allergic rhinitis Sejal Cheng NP Active Onset: 07/18/2017 Gastroparesis syndrome Sejal Cheng NP Active Onset: 07/18/2017 Rosacea Digiovanna, Sejal, BAR PORTER Active Onset: 03/21/2018 Mixed urinary incontinence Digiovanna, Sejal, BAR PORTER Active Onset: 04/18/2018 Kelley's esophagus Digiovanna, Sejal, BAR PORTER Active Onset: 11/14/2018 Mixed hyperlipidemia Digiovanna, Sejal, BAR PORTER Active Onset: 11/14/2018 Trigeminal neuralgia Digiovanna, Sejal, BAR PORTER Active Onset: 11/14/2018 Ulcerative colitis Digiovanna, Sejal, BAR PORTER Active Onset: 05/04/2005 Tobacco user Lizbet Widl MD Resolved Resolved: 11/14/2018 Onset: 07/18/2017 Migraine without aura, not Digiovanna, Sejal, BAR PORTER Resolved refractory Resolved: 11/14/2018 Onset: 08/08/2016 Abdominal bloating Resolved Resolved: 11/14/2018 Onset: 05/02/2005 Diverticulitis of colon Lizbet Wild MD Resolved Resolved: 11/14/2018 Family History Date Family Member(s) Observation Comments Father Unknown : (age Mother due to Cancer felt to be colon 82 Years) cancer, had rectal bleeding Mother Hypertension Mother Hypercholesterolemia Mother Diabetes, Adult Mother Stroke Mother Rheumatoid Arthritis First Son premature infant at 32 weeks. 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 Venkata ETOH Use Occasionally consumes alcohol Tobacco Use Start: Unknown End: Patient is a former quit 2004 Unknown smoker Recreational Drug Use Denies Drug Use Smoking Status Reviewed: 07/18/17 Patient is a former quit 2004 smoker Allergies, Adverse Reactions, Alerts Date Description Reaction Status Severity Comments 05/28/2013 Codeine Active 01/12/2017 Dogs Active 01/12/2017 Environmental Active Watery eyes 06/10/2015 NKDA Inactive Medications Medication Date Status Form Strength Qnty SIG Indications Ordering Provider Lucille 03/21/20 Active Tablets 10mg 90tabs take one N39.46 Digiovanna , 18 tablet by Sejal, mouth BAR PORTER every day Acetaminophen 00/00/00 Active Tablets 325mg 2 PO Q 4 M54.5 [place] 00 Hours prn [facility] M15.0 M25.50 Solodyn Active Tablets ER 115mg prn L71.9 Beto Ruiz MD 24HR Rocacea Glucosamine Active Capsules 1500Com 1 po qd M54.5 [facility] 1500 Complex M15.0 M25.50 Celecoxib Active Capsules 200mg 180caps 1 by mouth M54.5 Digiovanna, twice every Sejal, BAR PORTER day take with food M15.0 M25.[address] 40mg 1 by mouth bid K21.9 Syam,Biswarup K58.0 K31.84 Carbamazepine Active Chewtabs 100mg 1-3 tabs R20.8 Barney Toure MD daily G50.0 Folic Acid Active Tablets 1mg 1 by mouth M15.0 Jaimes - every day Matt Robles MD Methotrexate Active Tablets 2.5mg Take 6 M15.0 [place] - Sodium Tablets By Mian Robles Every 7 Matt MELARA Days Fiber Complete Active Capsules 1 by mouth K31.84 Unknown every day K58.0 K51.90 Dicyclomine HCL 03/21/ Hx Capsules 10mg 90cap 1 by mouth K58.0 Digiovanwilver, 2018 - s three times a Sejal, BAR PORTER 11/14/ day as needed 2018 Naproxen Sodium 08/12/ Hx Tablets 550mg 60tab 1 by mouth M25.5 Prosper, 2017 - s every 12 61 Sejal, BAR PORTER 10/18/ hours for 2 2018 weeks then as needed Iron 08/12/ Hx Tablets 325(65F 90tab one by mouth D64.9 Digiovanna, 2017 - e) mg s every other Sejal, BAR PORTER 09/11/ day, take 2016 with orange juice Ondansetron 08/12/ Hx Tablets 8mg 10tab 1 by mouth R11.0 Prosper, 2017 - Dispers s every 8 hours Sejal, BAR PORTER 08/22/ as needed for 2017 nausea Meclizine HCL 06/27/ Hx Tablets 25mg 1 by mouth R42 Unknown 2016 - three times a 11/21/ day as needed 2017 Ondansetron 04/13/ Hx Tablets 4mg 15tab 1 tablet Selene 2017 - Dispers s every 8 hours CELINA Akins 05/27/ as needed 2016 Metronidazole 04/08/ Hx Tablets 500mg 30tab 1 tablet by R10.8 Selene, 2017 - s mouth every 8 4 CELINA Akins 05/27/ hours for 10 2016 days Ciprofloxacin HCL 04/08/ Hx Tablets 500mg 20tab 1 tablet by R10.8 Selene, 2017 - s mouth twice 4 CELINA Akins 05/27/ daily for 10 2016 Ciprofloxacin HCL 07/01/ Hx Tablets 500mg 20tab 2 Times A Day K57.9 Unknown 2015 2 2015 Metronidazole 07/01/ Hx Tablets 500mg 30tab Every 8 Hours K57.9 Unknown 2015 - s 2 2015 Ciprofloxacin HCL 07/01/ Hx Tablets 500mg 20tab 2 Times A Day Unknown 2015 - s 2015 Metronidazole 07/01/ Hx Tablets 500mg 30tab Every 8 Hours Unknown 2015 - s 2015 Cyclobenzaprine HCL 11/11/ Hx Tablets 10mg 90tab 1 by mouth 722.7 Torri 2015 - s three times a 3 MD Lizbet 01/12/ day as 2017 needed, caution sedation M54.5 Vesicare - Hx Tablets 10mg 1 po qd N39.3 Oh, In 10/18/2017 MD Liat Docusate Sodium - Hx Tablets 100mg 2 bid K58.0 Jelly Perez 09/09/2017 up Prempro - Hx Tablets 0.3-1.5 30ta 1 po 3 days Oh, In 12/25/2015 bs per week of MD Liat 0.3, taking 0.45on 4 days per week Dexilant - Hx Capsules DR 40mg 30Ca 1 po bid Jelly Perez 07/05/2016 ps up Tramadol HCL - Hx Tablets one or two Unknown 06/26/2015 by mouth four times a day as needed pain Veramyst - Hx Suspension 27.5mcg/ 2 sprays J30.9 Jose Hampton 11/21/2017 [place] each , nostril every day Azelastine HCL - Hx Solution 0.1% use 2 J30.9 Jose Hampton (Nasal) 08/12/2017 sprays MD brittany each nostril twice a day Super Probiotic - Hx Capsules Once Daily K58.0 Unknown 05/12/2018 K21.9 K31.84 Hydrocodone-Acetaminophen - Hx Tablets 10-325mg 1 by mouth Unknown 08/12/2017 every 4- 6 hours as needed Oxycodone HCL - Hx Tablets 5mg 1 by mouth Unknown 08/12/2017 every 4 hours as needed pain Timolol Maleate - Hx Solution 0.5% apply both Unknown 11/21/2017 (Daily) eyes twice daily Cyclobenzaprine HCL - Hx Tablets 10mg one by Unknown 03/21/2018 mouth three times a day as needed muscle spasm Prednisolone Acetate - Hx Suspension 1% 1 drop in Unknown 03/21/2018 operative eye qid. begin drops on day 8 after surgery and continue after surgery as directed. shake well. Fluorometholone - Hx Suspension 0.1% 2 drop J Unknown 11/14/2018 bilat eye 3 three 0 times a . day as 9 needed Levocetirizine - Hx Tablets 5mg 1 by mouth Unknown Dihydrochloride 04/18/2018 every day Apriso - Hx Caps ER 24HR 0.375gm Take Four K Unknown 11/14/2018 Capsules 5 By Mouth 8 Every Day . 0 Lyrica - Hx Capsules 50mg tid Unknown 11/14/2018 Immunizations CPT Code Status Date Vaccine Reaction Lot # [id number] Given 03/04/2018 Tdap (Adacel) Ages 7 [address] [facility] [address] [facility] Above Only [address]51 Given 03/13/2012 Tdap (Adacel) Ages 7 And Above Only [id number] Given 09/26/1998 Tetanus And Diptheria Toxoids For Adult Use-preservative free Q2039 Refused 11/14/2018 Flu Vaccine NOS Pt says she does not get flu shots. FRANKLYN ROLON 11/14/18 Q2039 Refused 04/18/2018 Flu Vaccine NOS Vital Signs Date Vital Result Comment 11/14/2018 8:02am Weight 182.19 lb Heart Rate 76 /min BP Systolic 146 mmHg BP Diastolic 80 mmHg BP Systolic Recheck 132 mmHg BP Diastolic Recheck 74 mmHg Respiratory Rate 18 /min Height 66 inches 5'6" 04/18/18 BMI (Body Mass Index) 29.4 kg/m2 05/12/2018 10:47am Body Temperature 98.3 F tympanic Weight 179.00 lb Heart Rate 76 /min BP Systolic 122 mmHg BP Diastolic 70 mmHg Respiratory Rate 18 /min Height 66 inches 5'6" 04/18/18 BMI (Body Mass Index) 28.9 kg/m2 04/18/2018 8:30am Weight 180.00 lb Heart Rate 76 /min BP Systolic 102 mmHg BP Diastolic 60 mmHg Respiratory Rate 18 /min Height 66 inches 5'6" 04/18/18 BMI (Body Mass Index) 29.0 kg/m2 03/21/2018 11:35am Weight 184.00 lb Heart Rate 78 /min BP Systolic 124 mmHg BP Diastolic 70 mmHg Respiratory Rate 18 /min Height 66 inches 5'6" BMI (Body Mass Index) 29.7 kg/m2 11/21/2017 2:33pm Weight 176.00 lb Heart Rate 84 /min BP Systolic 140 mmHg BP Diastolic 66 mmHg BP Systolic Recheck 122 mmHg BP Diastolic Recheck 62 mmHg Respiratory Rate 14 /min Height 66 inches 5'6" BMI (Body Mass Index) 28.4 kg/m2 10/18/2017 3:45pm Weight 160.00 lb Heart Rate 96 /min BP Systolic 122 mmHg BP Diastolic 64 mmHg Respiratory Rate 12 /min Height 66 inches 5'6" BMI (Body Mass Index) 25.8 kg/m2 08/26/2017 1:45pm Weight 156.00 lb Heart Rate 92 /min BP Systolic 108 mmHg BP Diastolic 56 mmHg Respiratory Rate 18 /min Height 66 inches 5'6" BMI (Body Mass Index) 25.2 kg/m2 08/12/2017 10:58am Body Temperature 98.2 F Weight 159.00 lb Heart Rate 86 /min BP Systolic 122 mmHg BP Diastolic 70 mmHg Respiratory Rate 18 /min Height 66 inches 5'6" BMI (Body Mass Index) 25.7 kg/m2 07/18/2017 1:51pm Body Temperature 97.8 F Weight 157.00 lb Heart Rate 78 /min BP Systolic 138 mmHg BP Diastolic 64 mmHg Respiratory Rate 18 /min Height 66 inches 5'6" BMI (Body Mass Index) 25.3 kg/m2 04/08/2017 3:12pm Body Temperature 98.6 F Weight 157.00 lb Heart Rate 72 /min BP Systolic 140 mmHg BP Diastolic 70 mmHg Respiratory Rate 18 /min Height 66 inches 5'6" BMI (Body Mass Index) 25.3 kg/m2 01/12/2017 10:59am Weight 159.00 lb Heart Rate 80 /min BP Systolic 118 mmHg BP Diastolic 70 mmHg Respiratory Rate 16 /min Height 66 inches 5'6" BMI (Body Mass Index) 25.7 kg/m2 07/05/2016 9:48am Weight 172.00 lb Heart Rate 74 /min BP Systolic 120 mmHg BP Diastolic 80 mmHg Respiratory Rate 18 /min Height 66 inches 5'6" BMI (Body Mass Index) 27.8 kg/m2 06/10/2015 4:06pm Weight 168.00 lb Heart Rate 74 /min BP Systolic 120 mmHg BP Diastolic 80 mmHg Respiratory Rate 18 /min Height 66 inches 5'6" BMI (Body Mass Index) 27.1 kg/m2 11/11/2014 10:43am Body Temperature 97.7 F Weight 177.00 lb Heart Rate 72 /min BP Systolic 140 mmHg BP Diastolic 80 mmHg Respiratory Rate 18 /min Height 66 inches 5'6" BMI (Body Mass Index) 28.6 kg/m2 07/03/2014 4:33pm Weight 171.00 lb Heart Rate 72 /min BP Systolic 122 mmHg BP Diastolic 80 mmHg Respiratory Rate 18 /min Height 66 inches 5'6" 01/25/2014 4:03pm Weight 171.00 lb Heart Rate 76 /min BP Systolic 122 mmHg BP Diastolic 70 mmHg Respiratory Rate 18 /min Height 66 inches 5'6" 11/14/2013 2:19pm Body Temperature 98.2 F Weight 170.00 lb Heart Rate 84 /min BP Systolic 130 mmHg BP Diastolic 76 mmHg Respiratory Rate 18 /min 11/06/2013 3:55pm Weight 168.00 lb Heart Rate 76 /min BP Systolic 120 mmHg BP Diastolic 80 mmHg Respiratory Rate 18 /min 10/10/2013 4:18pm Weight 170.00 lb Heart Rate 74 /min BP Systolic 140 mmHg BP Diastolic 80 mmHg Respiratory Rate 18 /min Height 66 inches 5'6" 07/27/2013 2:55pm BP Systolic 142 mmHg RIGHT BP Diastolic 72 mmHg RIGHT 07/27/2013 2:55pm Body Temperature 97.9 F Weight 164.00 lb Heart Rate 76 /min BP Systolic 140 mmHg LEFT; nurse:123/74 BP Diastolic 70 mmHg LEFT; nurse:123/74 Respiratory Rate 18 /min Height 66 inches 5'6" 03/01/2013 9:19am Weight 169.00 lb Heart Rate 76 /min BP Systolic 126 mmHg BP Diastolic 74 mmHg Respiratory Rate 18 /min Height 66 inches 5'6" 02/09/2013 3:35pm Body Temperature 97.9 F Weight 169.50 lb Heart Rate 80 /min BP Systolic 132 mmHg BP Diastolic 72 mmHg Respiratory Rate 18 /min 01/22/2013 3:45pm Body Temperature 97.1 F Weight 168.00 lb Heart Rate 76 /min BP Systolic 112 mmHg BP Diastolic 70 mmHg Respiratory Rate 18 /min O2 % BldC Oximetry 96 % 09/01/2012 2:48pm Body Temperature 98.3 F Weight 167.00 lb Heart Rate 76 /min BP Systolic 118 mmHg BP Diastolic 70 mmHg Respiratory Rate 17 /min 12/09/2011 3:56pm Body Temperature 98.4 F Weight 167.12 lb Heart Rate 68 /min BP Systolic 118 mmHg BP Diastolic 72 mmHg Respiratory Rate 18 /min Height 66 inches 5'6" 06/30/2011 4:06pm Weight 159.00 lb Heart Rate 64 /min BP Systolic 120 mmHg L/Adult BP Diastolic 70 mmHg L/Adult Respiratory Rate 17 /min Height 66 inches 5'6" 05/10/2011 10:52am Weight 162.00 lb Heart Rate 80 /min BP Systolic 120 mmHg BP Diastolic 74 mmHg Respiratory Rate 20 /min Height 66 inches 5'6" 07/15/2010 2:46pm Body Temperature 97.7 F Weight 157.00 lb Heart Rate 70 /min BP Systolic 108 mmHg BP Diastolic 80 mmHg 06/30/2010 4:04pm Weight 156.00 lb Heart Rate 72 /min BP Systolic 110 mmHg LEFT BP Diastolic 72 mmHg LEFT Respiratory Rate 16 /min 06/16/2010 3:52pm Weight 155.00 lb Heart Rate 80 /min BP Systolic 120 mmHg RIGHT BP Diastolic 76 mmHg RIGHT Respiratory Rate 16 /min 10/09/2007 11:42am Body Temperature 97.4 F Weight 149.00 lb Heart Rate 76 /min BP Systolic 110 mmHg BP Diastolic 64 mmHg Respiratory Rate 18 /min Height 66 inches 5'6" 03/03/2007 4:47pm Weight 145.00 lb Heart Rate 68 /min BP Systolic 112 mmHg BP Diastolic 50 mmHg Respiratory Rate 20 /min Height 66 inches 5'6" 02/17/2007 2:20pm Body Temperature 97.8 F Weight 147.00 lb Heart Rate 78 /min BP Systolic 116 mmHg BP Diastolic 70 mmHg Respiratory Rate 18 /min Height 66 inches 5'6" 01/23/2007 10:27am Body Temperature 98.4 F Weight 143.06 lb Heart Rate 68 /min BP Systolic 98 mmHg BP Diastolic 60 mmHg Respiratory Rate 18 /min Height 66 inches 5'6" 01/04/2007 2:17pm Weight 144.00 lb Heart Rate 64 /min BP Systolic 100 mmHg BP Diastolic 60 mmHg Respiratory Rate 20 /min Height 66 inches 5'6" 12/28/2006 9:05am Body Temperature 98.2 F Weight 142.25 lb Heart Rate 60 /min BP Systolic 112 mmHg BP Diastolic 60 mmHg Respiratory Rate 18 /min Height 66 inches 5'6" 04/15/2006 3:01pm Body Temperature 97.2 F Weight 138.00 lb Heart Rate 80 /min BP Systolic 124 mmHg BP Diastolic 70 mmHg Respiratory Rate 16 /min Height 66 inches 5'6" O2 % BldC Oximetry 97 % 12/24/2005 4:28pm Weight 142.00 lb Heart Rate 96 /min BP Systolic 120 mmHg BP Diastolic 80 mmHg Respiratory Rate 20 /min Height 66 inches 5'6" 05/04/2005 2:10pm Weight 133.31 lb Heart Rate 82 /min BP Systolic 104 mmHg L/LG BP Diastolic 60 mmHg L/LG Respiratory Rate 12 /min 04/20/2005 8:40am Weight 134.00 lb Heart Rate 67 /min BP Systolic 108 mmHg BP Diastolic 60 mmHg Respiratory Rate 18 /min Results Test Date Facility Test Result H/L Range Note Magnesium-fcmg 11/04/2018 [facility] Magnesium 2.1 mg/dL N 1.8-2.4 1 (315)- - Date And Time Of Last Tegretol Dose? 11/03/18 1800 Hemoglobin 11/04/2018 [facility] Glycohemoglobin (A1c) 5.4 % N 4.2-6.3 2 Q4d-LECG (315)- - eAG 108 mg/dL Yvgqonqu-Iocicyuxdfwly-BZ 11/04/2018 [facility] Carbamazepine 4.1 N 4.0-12.0 (315)- - ug/mL Date And Time Of Last Tegretol Dose? 11/03/18 1800 [place] [place] 11/04/2018 [facility] Cholesterol 249 mg /dL High <200 3 (315)- - Triglycerides 144 mg/dL <150 4 HDL Cholesterol 70 mg/dL >40 5 LDL-Cholesterol 150 mg/dL < 100 6 Date And Time Of Last Tegretol Dose? 11/03/18 1800 CMP, Comp Metabolic-[facility] 11/04/2018 [facility] Glucose 95 mg/dL N 74-106 (315)- - BUN 19 mg/dL High 7-18 Creatinine 0.7 mg/dL N 0.6-1.3 Glom Filtration Rate, Estimate >60 mL/min >60 If >60 mL/min >60 7 BUN/Creat 27.1 ratio Sodium 140 mmol/L N 136-145 Potassium 3.9 mmol/L N 3.5-5.1 Chloride 106 mmol/L N 98-107 Carbon Dioxide 27 mmol/L N 21-32 Anion Gap 7 mEq/L Low 8-16 Calcium 9.3 mg/dL N 8.5-10.1 Total Protein 7.8 g/dL N 6.4-8.2 Albumin 4.0 g/dL N 3.4-5.0 Globulin 3.8 g/dL N 1.9-4.3 Alb/Glob 1.1 ratio Bilirubin,Total 0.2 mg/dL N 0.2-1.0 Sgot/Ast 22 U/L N 15-37 SGPT/Alt 28 U/L N 12-78 Alkaline Phosphatase 113 U/L N 45-117 Date And Time Of Last Tegretol Dose? 11/03/18 1800 CBC With Auto 11/04/2018 [facility] White Blood 7.0 K/uL N 3.1-10.7 Diff (315)- - Count Red Blood Count 4.12 M/uL N 3.90-5.40 Hemoglobin 12.8 gm/dL N 11.6-15.8 Hematocrit 38.3 % N 36.0-46.1 Mean Cell Volume 93.0 fl N 80.9-99.0 Mean Corpuscular HGB 31.1 pg N 25.9-32.7 Mean Corpuscular HGB Conc 33.4 g/dL N 30.8-34.3 Platelet Count 302 K/uL N 155-360 Red Cell Distri Width SD 44.0 fl N 36-47 Red Cell Distri Width %CV 13.3 % N 11.7-14.4 Mean Platelet Volume 9.7 fL N 8.9-12.4 Neut% 64.3 % N 40.4-72.8 Lymph % 27.1 % N 20.0-42.0 Cobb % 7.0 % N 4.3-13.2 Eo% 1.3 % N 0.0-6.6 Bas% 0.3 % N 0.0-1.1 Neut# 4.49 K/uL N 1.8-7.0 Lymph # 1.89 K/uL N 1.0-4.0 Cobb # 0.49 K/uL N 0.3-0.9 Eos # 0.09 K/uL N 0.0-0.5 Baso # 0.02 K/uL N 0.0-0.1 Carboxyhemoglobin 05/07/2018 [facility] Total HGB 14.2 g/ dL N 12.0-16.0 8 (315)- - HGB O2 Sat 86.4 % Low 91.9-98.5 Carboxyhemoglobin 0.8 % N 0.0-1.5 Methemoglobin 0.10 % N 0.00-0.24 Laboratory test 05/07/2018 [facility] Sedimentation Rate 18 mm/hr N 0-30 9 finding (315)- - Basic Metabolic 05/07/2018 [facility] Glucose 93 mg/dL N 74-106 Panel (315)- - BUN 17 mg/dL N 7-18 Creatinine 0.7 mg/dL N 0.6-1.3 Glom Filtration Rate, Estimate >60 mL/min >60 If >60 mL/min >60 10 BUN/Creat 24.2 ratio Sodium 141 mmol/L N 136-145 Potassium 4.3 mmol/L N 3.5-5.1 Chloride 105 mmol/L N 98-107 Carbon Dioxide 26 mmol/L N 21-32 Anion Gap 10 mEq/L N 8-16 Calcium 9.4 mg/dL N 8.5-10.1 CBS W/Automated Diff 05/07/2018 [facility] White Blood 7.2 K/uL N 3.1-10.7 (315)- - Count Red Blood Count 4.35 M/uL N 3.90-5.40 Hemoglobin 13.7 gm/dL N 11.6-15.8 Hematocrit 39.7 % N 36.0-46.1 Mean Cell Volume 91.3 fl N 80.9-99.0 Mean Corpuscular HGB 31.5 pg N 25.9-32.7 Mean Corpuscular HGB Conc 34.5 g/dL High 30.8-34.3 Platelet Count 325 K/uL N 155-360 Red Cell Distri Width SD 43.8 fl N 3-47 Red Cell Distri Width %CV 13.7 % N 11.7-14.4 Mean Platelet Volume 9.3 fL N 8.9-12.4 Neut% 71.3 % N 40.4-72.8 Lymph % 20.3 % N 20.0-42.0 Cobb % 7.1 % N 4.3-13.2 Eo% 1.0 % N 0.0-6.6 Bas% 0.3 % N 0.0-1.1 Neut# 5.12 K/uL N 1.8-7.0 Lymph # 1.46 K/uL N 1.0-4.0 Cobb # 0.51 K/uL N 0.3-0.9 Eos # 0.07 K/uL N 0.0-0.5 Baso # 0.02 K/uL N 0.0-0.1 Laboratory test 05/07/2018 [facility] Valproic Acid < 3.0 Low 50.0-100.0 finding (315)- - ug/mL Lipid 04/11/2018 [facility] Cholesterol 217 mg/dL High 50-199 11 Triglycerides 249 mg/dL High 30-200 HDL 52 mg/dL 35-85 12 Chol/ HDL Ratio 4.2 ratio 3.7-5.6 VLDL 50 mg/dL High 2-29 LDL (Calc) 115 mg/dL High 20-99 13 Laboratory test finding 10/18/2017 [facility] Platelet Count 333 K/ul 140- 400 14 Basic (BMP) 08/25/2017 [facility] Sodium 139 mmol/L 135-146 15 Potassium 4.3 mmol/L 3.5-5.2 Chloride# 101 mmol/L 97-110 16 Carbon Dioxide 27 mmol/L 24-34 Glucose 84 mg/dL 70-105 Creatinine 0.7 mg/dL 0.5-1.4 Calcium 10.0 mg/dL 8.5-10.2 Non Dede Egfr >60 >60 17 Dede Egfr >60 >60 18 Anion Gap 11 mmol/L 7-16 19 BUN 14 mg/dL 6-26 CBC With Auto Diff 08/25/2017 [facility] WBC 7.9 K/uL 4.1-11.0 RBC 3.91 M/uL Low 4.00-5.40 Hemoglobin 11.9 gm/dL Low 12.0-16.0 Hematocrit 36.0 % 36.0-47.0 MCV 92.3 fL 80.0-97.0 MCH 30.3 pg 27.0-32.0 MCHC 32.9 g/dL 32.0-36.0 RDW 14.0 % 11.5-14.5 PLT Count 522 K/ul High 140-400 MPV 7.3 FL 7.1-10.7 Neutrophil 62.5 % 35.0-75.0 Lymphocyte 28.5 % 16.0-52.0 Monocyte 6.3 % 2.0-10.0 Eosinophil 2.1 % 0.0-5.0 Basophil 0.6 % 0.0-4.0 Abs Neutrophils 4.9 K/uL 2.1-8.0 Abs Lymphocytes 2.2 K/uL 0.8-5.5 Abs Monocytes 0.5 K/uL 0.1-1.0 Abs Eosinophils 0.2 K/uL 0.0-0.5 Abs Basophils 0.0 K/uL 0.0-0.3 CBS W/Automated Diff 08/11/2017 [facility] White Blood 7.5 K/uL N 3.1-10.7 20 (315)- - Count Red Blood Count 3.32 M/uL Low 3.90-5.40 Hemoglobin 10.3 gm/dL Low 11.6-15.8 Hematocrit 30.2 % Low 36.0-46.1 Mean Cell Volume 91.0 fl N 80.9-99.0 Mean Corpuscular HGB 31.0 pg N 25.9-32.7 Mean Corpuscular HGB Conc 34.1 g/dL N 30.8-34.3 Platelet Count 387 K/uL N 150-400 Red Cell Distri Width SD 41.9 fl N 3-47 Red Cell Distri Width %CV 13.2 % N 11.7-14.4 Mean Platelet Volume 8.6 fL Low 8.9-12.4 Neut% 74.3 % High 40.4-72.8 Lymph % 14.7 % Low 20.0-42.0 Cobb % 9.1 % N 4.3-13.2 Eo% 1.6 % N 0.0-6.6 Bas% 0.3 % N 0.0-1.1 Neut# 5.57 K/uL N 1.8-7.0 Lymph # 1.10 K/uL N 1.0-4.0 Cobb # 0.68 K/uL N 0.3-0.9 Eos # 0.12 K/uL N 0.0-0.5 Baso # 0.02 K/uL N 0.0-0.1 Basic Metabolic Panel 08/11/2017 [facility] Glucose 112 mg/dL High 74-106 (315)- - BUN 14 mg/dL N 7-18 Creatinine 0.7 mg/dL N 0.6-1.3 Glom Filtration Rate, Estimate >60 mL/min >60 If >60 mL/min >60 21 BUN/Creat 20.0 ratio Sodium 134 mmol/L Low 136-145 Potassium 4.3 mmol/L N 3.5-5.1 Chloride 99 mmol/L N 98-107 Carbon Dioxide 24 mmol/L N 21-32 Anion Gap 11 mEq/L N 8-16 Calcium 9.4 mg/dL N 8.5-10.1 Ua RFX Micro & 08/10/2017 [facility] Urine Color YELLOW Yellow Culture II (315)- - Urine Clarity SL CLOUDY Clear Urine Glucose - Dipstick NEGATIVE mg/dL Negative Urine Bilirubin - Dipstick NEGATIVE Negative Urine Ketone NEGATIVE mg/dL Negative Urine Specific [place] 1.015 N 1.010-1.030 Urine Blood NEGATIVE Negative Urine PH 6.5 N 6.5-7.5 Urine Protein - Dipstick NEGATIVE mg/dL Negative Urine Urobilinogen - Dipstick 0.2 E.U./dL N 0.2-1.0 Urine Nitrite - Dipstick NEGATIVE Negative Urine Leuk Esterase NEGATIVE Negative Source: URINE, CLEAN CAT <SEE NOTE> 22 Comprehensive Met Panel-[facility] 07/18/2017 [facility] Sodium 141 mmol/L 135- 146 23, 24 Potassium 4.3 mmol/L 3.5-5.2 Chloride# 101 mmol/L 97-110 25 Carbon Dioxide 29 mmol/L 24-34 Glucose 79 mg/dL 70-105 Creatinine 0.7 mg/dL 0.5-1.4 Calcium 10.1 mg/dL 8.5-10.2 Total Protein 7.1 g/dL 6.0-8.0 Albumin 4.8 g/dL 3.6-4.9 Globulin 2.3 g/dL 2.0-3.5 A/G Ratio 2.1 Ratio 1.0-2.2 Total Bilirubin 0.3 mg/dL 0.1-1.3 Alkaline Phosphatase 76 U/L 24-140 Alt 18 U/L 3-42 Ast 22 U/L 8-42 Dede Egfr >60 >60 26 Non Dede Egfr >60 >60 27 Anion Gap 11 mmol/L 7-16 28 BUN 19 mg/dL 6-26 Laboratory test finding 07/18/2017 [facility] Vit D25oh 31 ng/mL 31-100 CBC With Auto Diff 07/18/2017 [facility] WBC 7.3 K/uL 4.1-11.0 RBC 4.51 M/uL 4.00-5.40 Hemoglobin 13.6 gm/dL 12.0-16.0 Hematocrit 40.3 % 36.0-47.0 MCV 89.3 fL 80.0-97.0 MCH 30.1 pg 27.0-32.0 MCHC 33.7 g/dL 32.0-36.0 RDW 14.0 % 11.5-14.5 PLT Count 338 K/ul 140-400 MPV 7.7 FL 7.1-10.7 Neutrophil 54.8 % 35.0-75.0 Lymphocyte 36.2 % 16.0-52.0 Monocyte 7.9 % 2.0-10.0 Eosinophil 0.6 % 0.0-5.0 Basophil 0.5 % 0.0-4.0 Abs Neutrophils 4.0 K/uL 2.1-8.0 Abs Lymphocytes 2.6 K/uL 0.8-5.5 Abs Monocytes 0.6 K/uL 0.1-1.0 Abs Eosinophils 0.0 K/uL 0.0-0.5 Abs Basophils 0.0 K/uL 0.0-0.3 Laboratory 07/18/2017 [facility] Hepatitis C NON REACTIVE Non Reactive 29 test finding Virus Antibody S/CORatio([facility] Lipid 07/18/2017 [facility] Cholesterol 266 mg/dL High 50-199 Triglycerides 123 mg/dL 30-200 HDL 70 mg/dL 35-85 30 Chol/ HDL Ratio 3.8 ratio 3.7-5.6 VLDL 25 mg/dL 2-29 LDL (Calc) 172 mg/dL High 20-99 31 Comprehensive Met Panel-[facility] 04/08/2017 [facility] Sodium 143 mmol/L 135- 146 32 Potassium 4.0 mmol/L 3.5-5.2 Chloride# 107 mmol/L 97-110 33 Carbon Dioxide 27 mmol/L 24-34 Glucose 99 mg/dL 70-105 BUN 15 mg/dL 6-26 Creatinine 0.8 mg/dL 0.5-1.4 Calcium 9.5 mg/dL 8.5-10.2 Total Protein 6.6 g/dL 6.0-8.0 Albumin 4.4 g/dL 3.6-4.9 Globulin 2.2 g/dL 2.0-3.5 A/G Ratio 2.0 Ratio 1.0-2.2 Total Bilirubin 0.3 mg/dL 0.1-1.3 Alkaline Phosphatase 53 U/L 24-140 Alt 16 U/L 3-42 Ast 20 U/L 8-42 Dede Egfr >60 >60 34 Non Dede Egfr >60 >60 35 Anion Gap 13 mmol/L 7-16 36 CBC With Auto Diff 04/08/2017 [place] WBC 6.5 K/uL 4.1-11.0 RBC 4.02 M/uL 4.00-5.40 Hemoglobin 11.9 gm/dL Low 12.0-16.0 Hematocrit 36.0 % 36.0-47.0 MCV 89.5 fL 80.0-97.0 MCH 29.7 pg 27.0-32.0 MCHC 33.2 g/dL 32.0-36.0 RDW 13.3 % 11.5-14.5 PLT Count 306 K/ul 140-400 Neutrophil 54.3 % 35.0-75.0 Lymphocyte 33.4 % 16.0-52.0 Monocyte 8.4 % 2.0-10.0 Eosinophil 2.1 % 0.0-5.0 Basophil 1.8 % 0.0-4.0 Abs Neutrophils 3.5 K/uL 2.1-8.0 Abs Lymphocytes 2.2 K/uL 0.8-5.5 Abs Monocytes 0.5 K/uL 0.1-1.0 Abs Eosinophils 0.1 K/uL 0.0-0.5 Abs Basophils 0.1 K/uL 0.0-0.3 Urine HCG 03/21/2017 [facility] Urine HCG NEGATIVE Negative 37, 38 (Qualitative) (315)- - (Qualitative) Source: URINE, CLEAN CAT <SEE NOTE> 39 CBS W/Automated Diff 03/21/2017 [facility] White Blood 8.9 K/uL N 3.1-10.7 (315)- - Count Red Blood Count 4.03 M/uL N 3.90-5.40 Hemoglobin 12.3 gm/dL N 11.6-15.8 Hematocrit 35.7 % Low 36.0-46.1 Mean Cell Volume 88.6 fl N 80.9-99.0 Mean Corpuscular HGB 30.5 pg N 25.9-32.7 Mean Corpuscular HGB Conc 34.5 g/dL High 30.8-34.3 Platelet Count 357 K/uL N 150-400 Red Cell Distri Width SD 41.6 fl N 3-47 Red Cell Distri Width %CV 13.4 % N 11.7-14.4 Mean Platelet Volume 9.8 fL N 8.9-12.4 Neut% 62.4 % N 40.4-72.8 Lymph % 29.4 % N 20.0-42.0 Cobb % 7.0 % N 4.3-13.2 Eo% 0.8 % N 0.0-6.6 Bas% 0.4 % N 0.0-1.1 Neut# 5.57 K/uL N 1.8-7.0 Lymph # 2.63 K/uL N 1.0-4.0 Cobb # 0.63 K/uL N 0.3-0.9 Eos # 0.07 K/uL N 0.0-0.5 Baso # 0.04 K/uL N 0.0-0.1 Laboratory test 03/21/2017 [facility] Slide Review (SEE NOTE) 40 finding (315)- - Ua RFX Micro & 03/21/2017 [facility] Urine Color YELLOW Yellow Culture II (315)- - Urine Clarity CLEAR Clear Urine Glucose - Dipstick NEGATIVE mg/dL Negative Urine Bilirubin - Dipstick NEGATIVE Negative Urine Ketone TRACE mg/dL High Negative Urine Specific [place] <=1.005 Low 1.010-1.030 Urine Blood NEGATIVE Negative Urine PH 5.5 Low 6.5-7.5 Urine Protein - Dipstick NEGATIVE mg/dL Negative Urine Urobilinogen - Dipstick 0.2 E.U./dL N 0.2-1.0 Urine Nitrite - Dipstick NEGATIVE Negative Urine Leuk Esterase NEGATIVE Negative Source: URINE, CLEAN CAT <SEE NOTE> 41 Ua RFX Micro & 11/20/2016 [facility] Urine Color YELLOW Yellow 42 Culture II (315)- - Urine Clarity CLEAR Clear Urine Glucose - Dipstick NEGATIVE mg/dL Negative Urine Bilirubin - Dipstick NEGATIVE Negative Urine Ketone NEGATIVE mg/dL Negative Urine Specific [place] 1.010 N 1.010-1.030 Urine Blood NEGATIVE Negative Urine PH 5.0 Low 6.5-7.5 Urine Protein - Dipstick NEGATIVE mg/dL Negative Urine Urobilinogen - Dipstick 0.2 E.U./dL N 0.2-1.0 Urine Nitrite - Dipstick NEGATIVE Negative Urine Leuk Esterase NEGATIVE Negative Source: URINE, CLEAN CAT <SEE NOTE> 43 CBS W/Automated Diff 11/20/2016 [facility] White Blood 9.7 K/uL N 3.1-10.7 (315)- - Count Red Blood Count 4.31 M/uL N 3.90-5.40 Hemoglobin 13.0 gm/dL N 11.6-15.8 Hematocrit 38.6 % N 36.0-46.1 Mean Cell Volume 89.6 fl N 80.9-99.0 Mean Corpuscular HGB 30.2 pg N 25.9-32.7 Mean Corpuscular HGB Conc 33.7 g/dL N 30.8-34.3 Platelet Count 362 K/uL N 150-400 Red Cell Distri Width SD 44.9 fl N 3-47 Red Cell Distri Width %CV 14.2 % N 11.7-14.4 Mean Platelet Volume 10.3 fL N 8.9-12.4 Neut% 68.1 % N 40.4-72.8 Lymph % 24.9 % N 20.0-42.0 Cobb % 5.9 % N 4.3-13.2 Eo% 0.8 % N 0.0-6.6 Bas% 0.3 % N 0.0-1.1 Neut# 6.60 K/uL N 1.8-7.0 Lymph # 2.42 K/uL N 1.0-4.0 Cobb # 0.57 K/uL N 0.3-0.9 Eos # 0.08 K/uL N 0.0-0.5 Baso # 0.03 K/uL N 0.0-0.1 Comprehensive Metabolic 11/20/2016 [facility] Glucose 100 mg/dL N 74-106 Panel (315)- - BUN 16 mg/dL N 7-18 Creatinine 0.6 mg/dL N 0.6-1.3 Glom Filtration Rate, Estimate >60 mL/min >60 If >60 mL/min >60 44 BUN/Creat 26.6 ratio Sodium 140 mmol/L N 136-145 Potassium 4.0 mmol/L N 3.5-5.1 Chloride 105 mmol/L N 98-107 Carbon Dioxide 24 mmol/L N 21-32 Anion Gap 11 mEq/L N 8-16 Calcium 8.6 mg/dL N 8.5-10.1 Total Protein 7.3 g/dL N 6.4-8.2 Albumin 3.5 g/dL N 3.4-5.0 Globulin 3.8 g/dL N 1.9-4.3 Alb/Glob 0.9 ratio Bilirubin,Total 0.2 mg/dL N 0.2-1.0 Sgot/Ast 20 U/L N 15-37 SGPT/Alt 30 U/L N 12-78 Alkaline Phosphatase 74 U/L N 45-117 Laboratory test finding 11/20/2016 [facility] CK 36 U/L N 26-192 (315)- - Troponin-I < 0.015 ng/mL 45 Laboratory test 08/08/2016 [facility] C. Difficile NEGATIVE FOR 46, 47 finding (315)- - Toxin A/B C. <SEE NOTE> Urinalysis With 08/08/2016 [facility] Urine Color YELLOW N Yellow Microscopic (315)- - Urine Clarity CLEAR N Clear Urine Glucose - Dipstick NEGATIVE mg/dL N Negative Urine Bilirubin - Dipstick NEGATIVE N Negative Urine Ketone NEGATIVE mg/dL N Negative Urine Specific [place] <=1.005 Low 1.010-1.030 Urine Blood NEGATIVE N Negative Urine PH 5.5 Low 6.5-7.5 Urine Protein - Dipstick NEGATIVE mg/dL N Negative Urine Urobilinogen - Dipstick 0.2 E.U./dL N 0.2-1.0 Urine Nitrite - Dipstick NEGATIVE N Negative Urine Leuk Esterase TRACE Abnormal Negative Urine RBC NONE SEEN rbc/hpf N 0-2 Urine WBC 0-2 wbc/hpf N 0-7 Urine Epithelial Cells VERY FEW /lpf N None Seen Urine Bacteria VERY FEW N None Seen Source: URINE, CLEAN CAT <SEE NOTE> 48 Laboratory test 08/08/2016 N2N/CCD Import Urine Bilirubin Negative Negative finding Urine Ketones Negative Negative Urine Leukocyte Esterase Trace High Negative Urine Nitrite Negative Negative Urine Protein Negative Negative Urine Urobilinogen 0.2 0.2-1.0 Urine Glucose 08/08/2016 N2N/CCD Import Urine Glucose Negative Negative (Ua) (Ua) CBS W/Automated 08/08/2016 [facility] White Blood 8.2 K/ uL N 3.1-10.7 Diff (315)- - Count Red Blood Count 4.38 M/uL N 3.90-5.40 Hemoglobin 13.2 gm/dL N 11.6-15.8 Hematocrit 39.2 % N 36.0-46.1 Mean Cell Volume 89.5 fl N 80.9-99.0 Mean Corpuscular HGB 30.1 pg N 25.9-32.7 Mean Corpuscular HGB Conc 33.7 g/dL N 30.8-34.3 Platelet Count 366 K/uL High 155-360 Red Cell Distri Width SD 42.1 fl N 3-47 Red Cell Distri Width %CV 13.3 % N 11.7-14.4 Mean Platelet Volume 10.5 fL N 8.9-12.4 Neut% 63.5 % N 40.4-72.8 Lymph % 27.1 % N 17.0-46.1 Cobb % 7.7 % N 4.3-13.2 Eo% 1.5 % N 0.0-6.6 Bas% 0.2 % N 0.0-1.1 Neut# 5.19 K/uL N 1.8-7.0 Lymph # 2.22 K/uL N 1.8-7.0 Cobb # 0.63 K/uL N 0.3-0.9 Eos # 0.12 K/uL N 0.0-0.5 Baso # 0.02 K/uL N 0.0-0.1 Comprehensive Metabolic 08/08/2016 [facility] Glucose 87 mg/dL N 74-106 Panel (315)- - BUN 11 mg/dL N 7-18 Creatinine 0.9 mg/dL N 0.6-1.3 Glom Filtration Rate, Estimate >60 mL/min N >60 If >60 mL/min N >60 49 BUN/Creat 12.2 ratio N Sodium 138 mmol/L N 136-145 Potassium 3.7 mmol/L N 3.5-5.1 Chloride 103 mmol/L N 98-107 Carbon Dioxide 25 mmol/L N 21-32 Anion Gap 10 mEq/L N 8-16 Calcium 9.3 mg/dL N 8.5-10.1 Total Protein 8.1 g/dL N 6.4-8.2 Albumin 4.1 g/dL N 3.4-5.0 Globulin 4.0 g/dL N 1.9-4.3 Alb/Glob 1.0 ratio N Bilirubin,Total 0.4 mg/dL N 0.2-1.0 Sgot/Ast 32 U/L N 15-37 SGPT/Alt 29 U/L N 12-78 Alkaline Phosphatase 90 U/L N 45-117 Laboratory test 08/08/2016 [facility] Lipase 110 U/L N 73-393 finding (315)- - Laboratory test 08/08/2016 N2N/CCD Import Alanine 29 12-78 finding Aminotransferase (Alt/SGPT) Albumin/Globulin Ratio 1.0 BUN/Creatinine Ratio 12.2 Basophils # (Auto) 0.02 0.0-0.1 Basophils (%) (Auto) 0.2 0.0-1.1 Blood Urea Nitrogen 11 7-18 Calcium Level 9.3 8.5-10.1 Carbon Dioxide Level 25 21-32 Chloride Level 103 98-107 Eosinophils # (Auto) 0.12 0.0-0.5 Eosinophils (%) (Auto) 1.5 0.0-6.6 Glucose Screen 87 74-106 Lymphocytes (%) (Auto) 27.1 17.0-46.1 Mean Corpuscular Hemoglobin 30.1 25.9-32.7 Mean Corpuscular Hemoglobin Concent 33.7 30.8-34.3 Mean Corpuscular Volume 89.5 80.9-99.0 Monocytes # (Auto) 0.63 0.3-0.9 Monocytes (%) (Auto) 7.7 4.3-13.2 Neutrophils (%) (Auto) 63.5 40.4-72.8 Potassium Level 3.7 3.5-5.1 RDW Coefficient of Variation 13.3 11.7-14.4 Red Cell Distribution Width 42.1 3-47 Sodium Level 138 136-145 Total Bilirubin 0.4 0.2-1.0 Aspartate Amino 08/08/2016 N2N/CCD Import Aspartate Amino 32 15-37 Transf (Ast/Sgot) Transf (Ast/Sgot) Lymphocytes # 08/08/2016 N2N/CCD Import Lymphocytes # 2.22 1.8-7.0 (Auto) (Auto) Neutrophils # 08/08/2016 N2N/CCD Import Neutrophils # 5.19 1.8-7.0 (Auto) (Auto) Lipid 07/05/2016 [facility] Cholesterol 161 mg/dL 50-199 Triglycerides 130 mg/dL 30-200 HDL 52 mg/dL 35-85 50 Chol/ HDL Ratio 3.1 ratio Low 3.7-5.6 VLDL 26 mg/dL 2-29 LDL (Calc) 83 mg/dL 20-99 51 Aspartate Amino 07/01/2016 N2N/CCD Import Aspartate Amino 23 15-37 Transf (Ast/Sgot) Transf (Ast/Sgot) Lymphocytes # 07/01/2016 N2N/CCD Import Lymphocytes # 2.41 1.8-7.0 (Auto) (Auto) Neutrophils # 07/01/2016 N2N/CCD Import Neutrophils # 6.47 1.8-7.0 (Auto) (Auto) Urinalysis With 07/01/2016 [facility] Urine Color YELLOW N Yellow 52 Microscopic (315)- - Urine Clarity CLEAR N Clear Urine Glucose - Dipstick NEGATIVE mg/dL N Negative Urine Bilirubin - Dipstick NEGATIVE N Negative Urine Ketone NEGATIVE mg/dL N Negative Urine Specific [place] 1.010 N 1.010-1.030 Urine Blood NEGATIVE N Negative Urine PH 6.0 Low 6.5-7.5 Urine Protein - Dipstick NEGATIVE mg/dL N Negative Urine Urobilinogen - Dipstick 0.2 E.U./dL N 0.2-1.0 Urine Nitrite - Dipstick NEGATIVE N Negative Urine Leuk Esterase SMALL Abnormal Negative Urine RBC 0-2 rbc/hpf N 0-2 Urine WBC 2-5 wbc/hpf N 0-7 Urine Epithelial Cells FEW /lpf N None Seen Urine Bacteria FEW N None Seen Source: URINE, CLEAN CAT <SEE NOTE> 53 Laboratory test 07/01/2016 N2N/CCD Import Urine Bilirubin Negative Negative finding Urine Leukocyte Esterase Small High Negative Urine Nitrite Negative Negative Urine Protein Negative Negative Urine Urobilinogen 0.2 0.2-1.0 Urine Glucose 07/01/2016 N2N/CCD Import Urine Glucose Negative Negative (Ua) (Ua) Urine Ketones 07/01/2016 N2N/CCD Import Urine Ketones Negative Negative CBS W/Automated 07/01/2016 [facility] White Blood 9.7 K/ uL N 3.1-10.7 Diff (315)- - Count Red Blood Count 4.32 M/uL N 3.90-5.40 Hemoglobin 13.1 gm/dL N 11.6-15.8 Hematocrit 38.5 % N 36.0-46.1 Mean Cell Volume 89.1 fl N 80.9-99.0 Mean Corpuscular HGB 30.3 pg N 25.9-32.7 Mean Corpuscular HGB Conc 34.0 g/dL N 30.8-34.3 Platelet Count 344 K/uL N 155-360 Red Cell Distri Width SD 44.7 fl N 3-47 Red Cell Distri Width %CV 14.0 % N 11.7-14.4 Mean Platelet Volume 10.4 fL N 8.9-12.4 Neut% 67.1 % N 40.4-72.8 Lymph % 25.0 % N 17.0-46.1 Cobb % 6.4 % N 4.3-13.2 Eo% 1.2 % N 0.0-6.6 Bas% 0.3 % N 0.0-1.1 Neut# 6.47 K/uL N 1.8-7.0 Lymph # 2.41 K/uL N 1.8-7.0 Cobb # 0.62 K/uL N 0.3-0.9 Eos # 0.12 K/uL N 0.0-0.5 Baso # 0.03 K/uL N 0.0-0.1 Comprehensive Metabolic 07/01/2016 [facility] Glucose 95 mg/dL N 74-106 Panel (315)- - BUN 17 mg/dL N 7-18 Creatinine 0.8 mg/dL N 0.6-1.3 Glom Filtration Rate, Estimate >60 mL/min N >60 If >60 mL/min N >60 54 BUN/Creat 21.2 ratio N Sodium 141 mmol/L N 136-145 Potassium 4.0 mmol/L N 3.5-5.1 Chloride 109 mmol/L High 98-107 Carbon Dioxide 25 mmol/L N 21-32 Anion Gap 7 mEq/L Low 8-16 Calcium 9.7 mg/dL N 8.5-10.1 Total Protein 7.9 g/dL N 6.4-8.2 Albumin 4.0 g/dL N 3.4-5.0 Globulin 3.9 g/dL N 1.9-4.3 Alb/Glob 1.0 ratio N Bilirubin,Total 0.3 mg/dL N 0.2-1.0 Sgot/Ast 23 U/L N 15-37 SGPT/Alt 27 U/L N 12-78 Alkaline Phosphatase 89 U/L N 45-117 Laboratory test 07/01/2016 [facility] HCG,Serum NEGATIVE N (Negative) finding (315)- - (Qualitative) Laboratory test 07/01/2016 N2N/CCD Import Alanine 27 12-78 finding Aminotransferase (Alt/SGPT) Albumin/Globulin Ratio 1.0 BUN/Creatinine Ratio 21.2 Basophils # (Auto) 0.03 0.0-0.1 Basophils (%) (Auto) 0.3 0.0-1.1 Blood Urea Nitrogen 17 7-18 Calcium Level 9.7 8.5-10.1 Carbon Dioxide Level 25 21-32 Chloride Level 109 High 98-107 Eosinophils # (Auto) 0.12 0.0-0.5 Eosinophils (%) (Auto) 1.2 0.0-6.6 Glucose Screen 95 74-106 Lymphocytes (%) (Auto) 25.0 17.0-46.1 Mean Corpuscular Hemoglobin 30.3 25.9-32.7 Mean Corpuscular Hemoglobin Concent 34.0 30.8-34.3 Mean Corpuscular Volume 89.1 80.9-99.0 Monocytes # (Auto) 0.62 0.3-0.9 Monocytes (%) (Auto) 6.4 4.3-13.2 Neutrophils (%) (Auto) 67.1 40.4-72.8 Potassium Level 4.0 3.5-5.1 RDW Coefficient of Variation 14.0 11.7-14.4 Red Cell Distribution Width 44.7 3-47 Sodium Level 141 136-145 Total Bilirubin 0.3 0.2-1.0 Follicle 05/03/2016 N2N/CCD Import Follicle 60.8 Stimulating Hormone Stimulating Hormone Thyroid Stimulating 05/03/2016 N2N/CCD Import Thyroid Stimulating 1.06 0.30-4. Hormone (TSH) Hormone (TSH) 20 Laboratory test 01/17/2014 N2N/CCD Import Alb/Glob 1.0 ratio finding Albumin 4.1 g/dL 3.5-5.0 Alkaline Phosphatase 99 U/L 50-136 Anion Gap 9 mEq/L 8-16 BUN 18 mg/dL 5-23 BUN/Creat 30.0 ratio Bas% 0.5 % 0.0-1.1 Baso # 0.04 K/uL 0.0-0.1 Bilirubin,Total 0.3 mg/dL 0.2-1.2 Calcium 9.6 mg/dL 8.5-10.1 Carbon Dioxide 29 mEq/L 18-29 Chloride 107 mmol/L 98-107 Creatinine 0.6 mg/dL 0.5-1.4 Eo% 1.9 % 0.0-6.6 Eos # 0.14 K/uL 0.0-0.5 Globulin 4.0 g/dL 1.9-4.3 Glom Filtration Rate, Estimate >60 mL/min >60 Glucose 93 mg/dL 76-115 Hematocrit 40.8 % 36.0-46.1 Hemoglobin 13.7 gm/dL 11.6-15.8 If >60 mL/min >60 55 Lymph # 2.19 K/uL 0.8-3.4 Lymph % 30.0 % 17.0-46.1 Mean Cell Volume 88.3 fl 80.9-99.0 Mean Corpuscular HGB 29.7 pg 25.9-32.7 Mean Corpuscular HGB Conc 33.6 g/dL 30.8-34.3 Mean Platelet Volume 9.6 fL 8.9-12.4 Cobb # 0.50 K/uL 0.3-0.9 Cobb % 6.8 % 4.3-13.2 Neut# 4.43 K/uL 1.0-7.0 Neut% 60.8 % 40.4-72.8 Platelet Count 324 K/uL 155-360 Potassium 4.0 mmol/L 3.5-5.1 Red Blood Count 4.62 M/uL 3.90-5.40 Red Cell Distri Width %CV 14.2 % 11.7-14.4 Red Cell Distri Width SD 44.6 fl 3-47 SGPT/Alt 28 U/L Low 30-65 Sgot/Ast 20 U/L 16-40 Sodium 141 mmol/L 136-145 Total Protein 8.1 g/dL High 6.3-8.0 White Blood Count 7.3 K/uL 3.1-10.7 LDL Cholesterol 01/17/2014 N2N/CCD Import Cholesterol 211 mg/dL High 120- 200 Profile HDL Cholesterol 66 mg/dL 29-83 LDL-Cholesterol 124 mg/dL 62-185 Triglycerides 105 mg/dL 16-231 Microalb/Creat 01/17/2014 N2N/CCD Import Microalbumin,Urine < 6.0 0.0- 18.5 Ratio,Random mg/L Microalbumin/Creatinine Ratio 7.9 ug/mgCrt 0.0-30.0 Urine Creatinine Conc 76 mg/dL Laboratory test 07/27/2013 N2N/CCD Import Throat Culture See Note 56 finding Complete Laboratory test 06/25/2013 N2N/CCD Import Hematocrit 35.0 % Low 36.0-46 finding .1 Hemoglobin 11.7 gm/dL 11.6-15.8 Mean Cell Volume 87.3 fl 80.9-99.0 Mean Corpuscular HGB 29.2 pg 25.9-32.7 Mean Corpuscular HGB Conc 33.4 g/dL 30.8-34.3 Mean Platelet Volume 9.5 fL 8.9-12.4 Platelet Count 307 K/uL 155-360 Red Blood Count 4.01 M/uL 3.90-5.40 Red Cell Distri Width %CV 13.5 % 11.7-14.4 White Blood Count 8.6 K/uL 3.1-10.7 Laboratory test finding 06/23/2013 N2N/CCD Import Anion Gap 13 mEq/L 8- 16 BUN 9 mg/dL 5-23 BUN/Creat 12.8 ratio Calcium 8.9 mg/dL 8.5-10.1 Carbon Dioxide 27 mEq/L 18-29 Chloride 108 mmol/L High 98-107 Creatinine 0.7 mg/dL 0.5-1.4 Glom Filtration Rate, Estimate >60 mL/min >60 Glucose 148 mg/dL High 76-115 If >60 mL/min >60 57 Potassium 4.0 mmol/L 3.5-5.1 Sodium 144 mmol/L 136-145 Laboratory test 06/22/2013 N2N/CCD Import Colon PRTL See Note 58 finding Resection,Non-Tumor Laboratory test 06/21/2013 N2N/CCD Import Polyp Colon And/Or hyperplastpolyp 59 finding Rectum Laboratory test 05/28/2013 N2N/CCD Import Alb/Glob 1.1 ratio finding Albumin 4.0 g/dL 3.5-5.0 Alkaline Phosphatase 82 U/L 50-136 Anion Gap 14 mEq/L 8-16 BUN 16 mg/dL 5-23 BUN/Creat 17.7 ratio Bilirubin,Total 0.2 mg/dL 0.2-1.2 Calcium 9.2 mg/dL 8.5-10.1 Carbon Dioxide 26 mEq/L 18-29 Chloride 106 mmol/L 98-107 Creatinine 0.9 mg/dL 0.5-1.4 Globulin 3.7 g/dL 1.9-4.3 Glom Filtration Rate, Estimate >60 mL/min >60 Glucose 91 mg/dL 76-115 HCG Serum, Qualitative Negative If >60 mL/min >60 60 Lipase 152 U/L 28-380 Potassium 4.0 mmol/L 3.5-5.1 SGPT/Alt 23 U/L Low 30-65 Sgot/Ast 19 U/L 16-40 Sodium 142 mmol/L 136-145 Total Protein 7.7 g/dL 6.3-8.0 Urine Bilirubin - Dipstick Negative Negative Urine Blood Negative Negative Urine Clarity Clear Clear Urine Color Yellow Yellow Urine Glucose - Dipstick Negative mg/dL Negative Urine Ketone Negative mg/dL Negative Urine Leuk Esterase Negative Negative Urine Nitrite - Dipstick Negative Negative Urine PH 6.0 Low 6.5-7.5 Urine Protein - Dipstick Negative mg/dL Negative Urine Specific [place] 1.010 1.010-1.030 Urine Urobilinogen - Dipstick 0.2 E.U./dL 0.2-1.0 CBS W/Automated Diff 05/28/2013 N2N/CCD Import Bas% 0.2 % 0.0-1.1 Baso # 0.02 K/uL 0.0-0.1 Eo% 1.7 % 0.0-6.6 Eos # 0.15 K/uL 0.0-0.5 Hematocrit 36.7 % 36.0-46.1 Hemoglobin 12.3 gm/dL 11.6-15.8 Lymph # 2.14 K/uL 0.8-3.4 Lymph % 23.7 % 17.0-46.1 Mean Cell Volume 87.8 fl 80.9-99.0 Mean Corpuscular HGB 29.4 pg 25.9-32.7 Mean Corpuscular HGB Conc 33.5 g/dL 30.8-34.3 Mean Platelet Volume 9.7 fL 8.9-12.4 Cobb # 0.61 K/uL 0.3-0.9 Cobb % 6.8 % 4.3-13.2 Neut# 6.10 K/uL 1.0-7.0 Neut% 67.6 % 40.4-72.8 Platelet Count 452 K/uL High 155-360 Red Blood Count 4.18 M/uL 3.90-5.40 Red Cell Distri Width %CV 13.8 % 11.7-14.4 Red Cell Distri Width SD 42.9 fl 3-47 White Blood Count 9.0 K/uL 3.1-10.7 Laboratory test finding 05/18/2013 N2N/CCD Import Anion Gap 10 mEq/L 8- 16 BUN 4 mg/dL Low 5-23 BUN/Creat 5.0 ratio Calcium 8.5 mg/dL 8.5-10.1 Carbon Dioxide 29 mEq/L 18-29 Chloride 108 mmol/L High 98-107 Creatinine 0.8 mg/dL 0.5-1.4 Glom Filtration Rate, Estimate >60 mL/min >60 Glucose 104 mg/dL 76-115 Hematocrit 32.4 % Low 36.0-46.1 Hemoglobin 10.9 gm/dL Low 11.6-15.8 If >60 mL/min >60 61 Magnesium 1.8 mg/dL 1.7-2.3 Mean Cell Volume 87.3 fl 80.9-99.0 Mean Corpuscular HGB 29.4 pg 25.9-32.7 Mean Corpuscular HGB Conc 33.6 g/dL 30.8-34.3 Mean Platelet Volume 9.7 fL 8.9-12.4 Platelet Count 408 K/uL High 155-360 Potassium 3.9 mmol/L 3.5-5.1 Red Blood Count 3.71 M/uL Low 3.90-5.40 Red Cell Distri Width %CV 13.2 % 11.7-14.4 Sodium 143 mmol/L 136-145 White Blood Count 7.6 K/uL 3.1-10.7 Laboratory test finding 05/17/2013 N2N/CCD Import C. Difficile Toxin A/B neg 62 Smear For WBC'S None Seen Smear Source: Stool Stool Culture 05/17/2013 N2N/CCD Import Shiga Toxin 1 See Note 63 Shiga Toxin 2 See Note 64 Stool Culture neg 65 Laboratory test finding 05/17/2013 N2N/CCD Import Anion Gap 10 mEq/L 8- 16 BUN 9 mg/dL 5-23 BUN/Creat 10.0 ratio C-Reactive Protein,Quant 19.7 mg/L High 0.0-4.9 Calcium 8.3 mg/dL Low 8.5-10.1 Carbon Dioxide 28 mEq/L 18-29 Chloride 111 mmol/L High 98-107 Creatinine 0.9 mg/dL 0.5-1.4 Glom Filtration Rate, Estimate >60 mL/min >60 Glucose 92 mg/dL 76-115 If >60 mL/min >60 66 Lactic Acid 1.3 mmol/L 0.4-2.0 Potassium 4.0 mmol/L 3.5-5.1 Sedimentation Rate 43 mm/hr High 0-30 Sodium 145 mmol/L 136-145 CBS W/Automated Diff 05/17/2013 N2N/CCD Import Bas% 0.3 % 0.0-1.1 Baso # 0.03 K/uL 0.0-0.1 Eo% 1.7 % 0.0-6.6 Eos # 0.17 K/uL 0.0-0.5 Hematocrit 31.1 % Low 36.0-46.1 Hemoglobin 10.3 gm/dL Low 11.6-15.8 Lymph # 1.99 K/uL 0.8-3.4 Lymph % 20.5 % 17.0-46.1 Mean Cell Volume 89.6 fl 80.9-99.0 Mean Corpuscular HGB 29.7 pg 25.9-32.7 Mean Corpuscular HGB Conc 33.1 g/dL 30.8-34.3 Mean Platelet Volume 9.5 fL 8.9-12.4 Cobb # 0.79 K/uL 0.3-0.9 Cobb % 8.1 % 4.3-13.2 Neut# 6.75 K/uL 1.0-7.0 Neut% 69.4 % 40.4-72.8 Platelet Count 372 K/uL High 155-360 Red Blood Count 3.47 M/uL Low 3.90-5.40 Red Cell Distri Width %CV 13.6 % 11.7-14.4 Red Cell Distri Width SD 42.9 fl 3-47 White Blood Count 9.7 K/uL 3.1-10.7 Laboratory test finding 05/16/2013 N2N/CCD Import Alb/Glob 1.0 ratio Albumin 3.8 g/dL 3.5-5.0 Alkaline Phosphatase 83 U/L 50-136 Anion Gap 14 mEq/L 8-16 BUN 12 mg/dL 5-23 BUN/Creat 15.0 ratio Band% 1 % 0-8 Bilirubin,Total 0.1 mg/dL Low 0.2-1.2 Calcium 9.1 mg/dL 8.5-10.1 Carbon Dioxide 25 mEq/L 18-29 Chloride 107 mmol/L 98-107 Creatinine 0.8 mg/dL 0.5-1.4 Globulin 3.8 g/dL 1.9-4.3 Glom Filtration Rate, Estimate >60 mL/min >60 Glucose 70 mg/dL Low 76-115 If >60 mL/min >60 67 Lipase 140 U/L 28-380 Lymph% 33 % 17-56 Monocyte% 3 % 0-10 Neutrophils% 63 % 33-73 Platelet Estimate Slight Increase Potassium 3.6 mmol/L 3.5-5.1 RBC Morphology Normal SGPT/Alt 24 U/L Low 30-65 Sgot/Ast 24 U/L 16-40 Sodium 142 mmol/L 136-145 Total Cells Counted 100 #CELLS Total Protein 7.6 g/dL 6.3-8.0 CBS W/Automated Diff 05/16/2013 N2N/[employer] Import Hematocrit 34.0 % Low 36.0 -46.1 Hemoglobin 11.5 gm/dL Low 11.6-15.8 Mean Cell Volume 87.9 fl 80.9-99.0 Mean Corpuscular HGB 29.7 pg 25.9-32.7 Mean Corpuscular HGB Conc 33.8 g/dL 30.8-34.3 Mean Platelet Volume 9.5 fL 8.9-12.4 Platelet Count 415 K/uL High 155-360 Red Blood Count 3.87 M/uL Low 3.90-5.40 Red Cell Distri Width %CV 13.6 % 11.7-14.4 Red Cell Distri Width SD 42.2 fl 3-47 White Blood Count 12.0 K/uL High 3.1-10.7 Laboratory test 05/16/2013 [facility]/[employer] Import Urine HCG Negative Negative 68 finding (Qualitative) Urine Screen 05/16/2013 [facility] Import Urine Bilirubin - Negative Negative Dipstick Urine Blood Trace Negative Urine Clarity Clear Clear Urine Color Yellow Yellow Urine Glucose - Dipstick Negative mg/dL Negative Urine Ketone Negative mg/dL Negative Urine Leuk Esterase Negative Negative Urine Nitrite - Dipstick Negative Negative Urine PH 6.0 Low 6.5-7.5 Urine Protein - Dipstick Negative mg/dL Negative Urine Specific [place] <=1.005 Low 1.010-1.030 Urine Urobilinogen - Dipstick 0.2 E.U./dL 0.2-1.0 Laboratory test finding 05/09/2013 [facility] Import Anion Gap 12 mEq/L 8- 16 BUN 14 mg/dL 5-23 BUN/Creat 17.5 ratio Calcium 9.2 mg/dL 8.5-10.1 Carbon Dioxide 25 mEq/L 18-29 Chloride 107 mmol/L 98-107 Creatinine 0.8 mg/dL 0.5-1.4 Glom Filtration Rate, Estimate >60 mL/min >60 Glucose 80 mg/dL 76-115 Hematocrit 38.6 % 36.0-46.1 Hemoglobin 12.9 gm/dL 11.6-15.8 If >60 mL/min >60 69 Mean Cell Volume 89.4 fl 80.9-99.0 Mean Corpuscular HGB 29.9 pg 25.9-32.7 Mean Corpuscular HGB Conc 33.4 g/dL 30.8-34.3 Mean Platelet Volume 9.9 fL 8.9-12.4 Platelet Count 348 K/uL 155-360 Potassium 4.4 mmol/L 3.5-5.1 Red Blood Count 4.32 M/uL 3.90-5.40 Red Cell Distri Width %CV 13.8 % 11.7-14.4 Sodium 140 mmol/L 136-145 White Blood Count 10.7 K/uL 3.1-10.7 Urine Screen 05/09/2013 [facility] Import Urine Bilirubin - Negative Negative Dipstick Urine Blood Negative Negative Urine Clarity SL Cloudy Clear Urine Color Straw Yellow Urine Glucose - Dipstick Negative mg/dL Negative Urine Ketone Negative mg/dL Negative Urine Leuk Esterase Negative Negative Urine Nitrite - Dipstick Negative Negative Urine PH 6.0 Low 6.5-7.5 Urine Protein - Dipstick Negative mg/dL Negative Urine Specific [place] <=1.005 Low 1.010-1.030 Urine Urobilinogen - Dipstick 0.2 E.U./dL 0.2-1.0 Laboratory test finding 05/09/2013 [facility] Import Urine Culture See Note 70 Laboratory test finding 05/01/2013 [facility] Import Alb/Glob 0.9 ratio Albumin 3.6 g/dL 3.5-5.0 Alkaline Phosphatase 92 U/L 50-136 Anion Gap 11 mEq/L 8-16 BUN 14 mg/dL 5-23 BUN/Creat 17.5 ratio Bilirubin,Total 0.2 mg/dL 0.2-1.2 Calcium 8.9 mg/dL 8.5-10.1 Carbon Dioxide 26 mEq/L 18-29 Chloride 107 mmol/L 98-107 Creatinine 0.8 mg/dL 0.5-1.4 Globulin 3.8 g/dL 1.9-4.3 Glom Filtration Rate, Estimate >60 mL/min >60 Glucose 109 mg/dL 76-115 HCG Serum, Qualitative Negative If >60 mL/min >60 71 Lipase 124 U/L 28-380 Potassium 3.9 mmol/L 3.5-5.1 SGPT/Alt 21 U/L Low 30-65 Sgot/Ast 15 U/L Low 16-40 Sodium 140 mmol/L 136-145 Total Protein 7.4 g/dL 6.3-8.0 CBS W/Automated Diff 05/01/2013 [facility] Import Bas% 0.2 % 0.0-1.1 Baso # 0.03 K/uL 0.0-0.1 Eo% 1.0 % 0.0-6.6 Eos # 0.14 K/uL 0.0-0.5 Hematocrit 36.7 % 36.0-46.1 Hemoglobin 12.4 gm/dL 11.6-15.8 Lymph # 2.20 K/uL 0.8-3.4 Lymph % 16.4 % Low 17.0-46.1 Mean Cell Volume 88.9 fl 80.9-99.0 Mean Corpuscular HGB 30.0 pg 25.9-32.7 Mean Corpuscular HGB Conc 33.8 g/dL 30.8-34.3 Mean Platelet Volume 9.7 fL 8.9-12.4 Cobb # 1.07 K/uL High 0.3-0.9 Cobb % 8.0 % 4.3-13.2 Neut# 10.01 K/uL High 1.0-7.0 Neut% 74.4 % High 40.4-72.8 Platelet Count 307 K/uL 155-360 Red Blood Count 4.13 M/uL 3.90-5.40 Red Cell Distri Width %CV 13.9 % 11.7-14.4 Red Cell Distri Width SD 44.0 fl 3-47 White Blood Count 13.5 K/uL High 3.1-10.7 Urine Screen 05/01/2013 [facility] Import Urine Bilirubin - Negative Negative Dipstick Urine Blood Trace Negative Urine Clarity Clear Clear Urine Color Yellow Yellow Urine Glucose - Dipstick Negative mg/dL Negative Urine Ketone Negative mg/dL Negative Urine Leuk Esterase Negative Negative Urine Nitrite - Dipstick Negative Negative Urine PH 6.0 Low 6.5-7.5 Urine Protein - Dipstick Negative mg/dL Negative Urine Specific [place] <=1.005 Low 1.010-1.030 Urine Urobilinogen - Dipstick 0.2 E.U./dL 0.2-1.0 Laboratory test 01/02/2013 [facility] Import Act Partial 30.5 s 23.9-34.3 72 finding Thrombo Time Anion Gap 14 mEq/L 8-16 BUN 17 mg/dL 5-23 BUN/Creat 34.0 ratio Calcium 9.5 mg/dL 8.5-10.1 Carbon Dioxide 25 mEq/L 18-29 Chloride 107 mmol/L 98-107 Creatinine 0.5 mg/dL 0.5-1.4 Glom Filtration Rate, Estimate >60 mL/min >60 Glucose 83 mg/dL 76-115 Hematocrit 39.4 % 36.0-46.1 Hemoglobin 13.1 gm/dL 11.6-15.8 If >60 mL/min >60 73 Mean Cell Volume 89.1 fl 80.9-99.0 Mean Corpuscular HGB 29.6 pg 25.9-32.7 Mean Corpuscular HGB Conc 33.2 g/dL 30.8-34.3 Mean Platelet Volume 10.2 fL 8.9-12.4 Platelet Count 335 K/uL 155-360 Potassium 4.4 mmol/L 3.5-5.1 Red Blood Count 4.42 M/uL 3.90-5.40 Red Cell Distri Width %CV 14.1 % 11.7-14.4 Sodium 142 mmol/L 136-145 White Blood Count 6.6 K/uL 3.1-10.7 Protime 01/02/2013 [employer] Import Inr 0.9 0.9-1.1 74 Protime 12.3 s 12.1-14.9 Laboratory test finding 11/15/2012 [facility]N[employer] Import Alb/Glob 1.1 ratio Albumin 3.8 g/dL 3.5-5.0 Alkaline Phosphatase 80 U/L 50-136 Anion Gap 13 mEq/L 8-16 BUN 15 mg/dL 5-23 BUN/Creat 25.0 ratio Bas% 0.2 % 0.0-1.1 Baso # 0.02 K/uL 0.0-0.1 Bilirubin,Total 0.2 mg/dL 0.2-1.2 Calcium 9.3 mg/dL 8.5-10.1 Carbon Dioxide 24 mEq/L 18-29 Chloride 108 mmol/L High 98-107 Creatinine 0.6 mg/dL 0.5-1.4 Eo% 1.4 % 0.0-6.6 Eos # 0.13 K/uL 0.0-0.5 Globulin 3.5 g/dL 1.9-4.3 Glom Filtration Rate, Estimate >60 mL/min >60 Glucose 95 mg/dL 76-115 Hematocrit 36.9 % 36.0-46.1 Hemoglobin 12.4 gm/dL 11.6-15.8 If >60 mL/min >60 75 Lipase 117 U/L 28-380 Lymph # 2.41 K/uL 0.8-3.4 Lymph % 25.9 % 17.0-46.1 Mean Cell Volume 87.6 fl 80.9-99.0 Mean Corpuscular HGB 29.5 pg 25.9-32.7 Mean Corpuscular HGB Conc 33.6 g/dL 30.8-34.3 Mean Platelet Volume 9.7 fL 8.9-12.4 Cobb # 0.67 K/uL 0.3-0.9 Cobb % 7.2 % 4.3-13.2 Neut# 6.09 K/uL 1.0-7.0 Neut% 65.3 % 40.4-72.8 Platelet Count 347 K/uL 155-360 Potassium 3.8 mmol/L 3.5-5.1 Red Blood Count 4.21 M/uL 3.90-5.40 Red Cell Distri Width %CV 13.7 % 11.7-14.4 Red Cell Distri Width SD 42.6 fl 3-47 SGPT/Alt 26 U/L Low 30-65 Sgot/Ast 26 U/L 16-40 Sodium 141 mmol/L 136-145 Total Protein 7.3 g/dL 6.3-8.0 Urine Bilirubin - Dipstick Negative Negative Urine Blood Trace Negative Urine Clarity Clear Clear Urine Color Yellow Yellow Urine Glucose - Dipstick Negative mg/dL Negative Urine Ketone Negative mg/dL Negative Urine Leuk Esterase Negative Negative Urine Nitrite - Dipstick Negative Negative Urine PH 5.5 Low 6.5-7.5 Urine Protein - Dipstick Negative mg/dL Negative Urine Specific [place] 1.010 1.010-1.030 Urine Urobilinogen - Dipstick 0.2 E.U./dL 0.2-1.0 White Blood Count 9.3 K/uL 3.1-10.7 Laboratory test finding 09/01/2012 N2N/[facility] Import Renetta Species See Note 76 Gardnerella Vaginalis negx3 77 Genital Culture neg 78 Gram Stain See Note 79 Trichomonas Vaginalis See Note 80 Bas% 0.4 % 0.0-1.1 Baso # 0.03 K/uL 0.0-0.1 Eo% 1.6 % 0.0-6.6 Eos # 0.11 K/uL 0.0-0.5 Hematocrit 36.8 % 36.0-46.1 Hemoglobin 12.6 gm/dL 11.6-15.8 Lymph # 2.34 K/uL 0.8-3.4 Lymph % 34.3 % 17.0-46.1 Mean Cell Volume 87.8 fl 80.9-99.0 Mean Corpuscular HGB 30.1 pg 25.9-32.7 Mean Corpuscular HGB Conc 34.2 g/dL 30.8-34.3 Mean Platelet Volume 10.4 fL 8.9-12.4 Cobb # 0.47 K/uL 0.3-0.9 Cobb % 6.9 % 4.3-13.2 Neut# 3.87 K/uL 1.0-7.0 Neut% 56.8 % 40.4-72.8 Platelet Count 342 K/uL 155-360 Red Blood Count 4.19 M/uL 3.90-5.40 Red Cell Distri Width %CV 13.5 % 11.7-14.4 Red Cell Distri Width SD 42.4 fl 3-47 Vitamin D,25-Hydroxy 24.9 ng/mL Low 30.0-100.0 81 White Blood Count 6.8 K/uL 3.1-10.7 Vitamin B12 And Folate 09/01/2012 N2N/[facility] Import Folic Acid 15.1 ng/mL 6.0-15.4 Vitamin B12 414 pg/mL 200-900 Laboratory test finding 09/01/2012 [facility]N/[facility] Import A/G Ratio 1.4 1.0-2.2 Albumin 4.3 g/dL 3.5-5.0 Alkaline Phosphatase 78 U/L 30-126 Alt 25 U/L 9-52 Ast 27 U/L 14-36 BUN 14 mg/dL 7-18 BUN/CR Ratio 18.2 Ratio 12-20 Calcium 9.7 mg/dL 8.7-10.5 Carbon Dioxide 27 mmol/L 22-30 Chloride 103 mmol/L 98-107 Creatinine, Serum 0.7 mg/dL 0.7-1.2 Globulin 3.0 g/dL 2.7-4.3 Glucose 104 mg/dL 65-105 Potassium 4.3 mmol/L 3.6-5.0 Sodium 143 mmol/L 137-145 TSH 0.925 uIU/ml 0.50-6.00 Total Bilirubin 0.5 mg/dL 0.2-1.3 Total Protein 7.2 g/dL 6.3-8.2 Laboratory test 03/30/2012 N2N/CCD Import Total Protein 6.8 g/dL 6.3- 8.2 82 finding Urine Screen 03/21/2012 N2N/[facility] Import Urine Bilirubin - Negative Negative Dipstick Urine Blood Trace Negative Urine Clarity Clear Clear Urine Color Yellow Yellow Urine Glucose - Dipstick Negative mg/dL Negative Urine Ketone 15 mg/dL High Negative Urine Leuk Esterase Negative Negative Urine Nitrite - Dipstick Negative Negative Urine PH 6.0 Low 6.5-7.5 Urine Protein - Dipstick Negative mg/dL Negative Urine Specific [place] 1.025 1.010-1.030 Urine Urobilinogen - Dipstick 0.2 E.U./dL 0.2-1.0 Laboratory test finding 03/21/2012 N2N/[facility] Import Anion Gap 13 mEq/L 8- 16 BUN 13 mg/dL 5-23 BUN/Creat 16.2 ratio Bas% 0.3 % 0.0-1.1 Baso # 0.03 K/uL 0.0-0.1 C-Reactive Protein,Quant 73.4 mg/L High 0.0-4.9 Calcium 9.1 mg/dL 8.5-10.1 Carbon Dioxide 23 mEq/L 18-29 Chloride 104 mmol/L 98-107 Creatinine 0.8 mg/dL 0.5-1.4 Eo% 0.9 % 0.0-6.6 Eos # 0.08 K/uL 0.0-0.5 Glom Filtration Rate, Estimate >60 mL/min >60 Glucose 98 mg/dL 76-115 Hematocrit 37.1 % 36.0-46.1 Hemoglobin 12.0 gm/dL 11.6-15.8 If >60 mL/min >60 83 Lymph # 2.08 K/uL 0.8-3.4 Lymph % 24.2 % 17.0-46.1 Mean Cell Volume 88.5 fl 80.9-99.0 Mean Corpuscular HGB 29.9 pg 25.9-32.7 Mean Corpuscular HGB Conc 33.8 g/dL 30.8-34.3 Mean Platelet Volume 9.9 fL 8.9-12.4 Cobb # 0.61 K/uL 0.3-0.9 Cobb % 7.1 % 4.3-13.2 Neut# 5.79 K/uL 1.0-7.0 Neut% 67.5 % 40.4-72.8 Platelet Count 303 K/uL 155-360 Potassium 4.1 mmol/L 3.5-5.1 Red Blood Count 4.01 M/uL 3.90-5.40 Red Cell Distri Width %CV 13.5 % 11.7-14.4 Red Cell Distri Width SD 42.6 fl 3-47 Sedimentation Rate 38 mm/hr High 0-30 Sodium 136 mmol/L 136-145 White Blood Count 8.6 K/uL 3.1-10.7 Routine Culture W/ Gram 03/20/2012 N2N/CCD Import Aerobic Culture See Note 84 Stain Gram Stain See Note 85 Laboratory test finding 03/18/2012 N2N/[facility] Import Alb/Glob 1.2 ratio Albumin 4.6 g/dL 3.5-5.0 Alkaline Phosphatase 79 U/L 50-136 Anion Gap 10 mEq/L 8-16 BUN 15 mg/dL 5-23 BUN/Creat 15.0 ratio Bas% 0.3 % 0.0-1.1 Baso # 0.03 K/uL 0.0-0.1 Bilirubin,Total 0.5 mg/dL 0.2-1.2 Calcium 9.9 mg/dL 8.5-10.1 Carbon Dioxide 26 mEq/L 18-29 Chloride 108 mmol/L High 98-107 Creatinine 1.0 mg/dL 0.5-1.4 Eo% 1.9 % 0.0-6.6 Eos # 0.16 K/uL 0.0-0.5 Globulin 4.0 g/dL 1.9-4.3 Glom Filtration Rate, Estimate >60 mL/min >60 Glucose 96 mg/dL 76-115 Hematocrit 40.7 % 36.0-46.1 Hemoglobin 14.0 gm/dL 11.6-15.8 If >60 mL/min >60 86 Lymph # 2.34 K/uL 0.8-3.4 Lymph % 27.2 % 17.0-46.1 Mean Cell Volume 86.6 fl 80.9-99.0 Mean Corpuscular HGB 29.8 pg 25.9-32.7 Mean Corpuscular HGB Conc 34.4 g/dL High 30.8-34.3 Mean Platelet Volume 9.9 fL 8.9-12.4 Cobb # 0.45 K/uL 0.3-0.9 Cobb % 5.2 % 4.3-13.2 Neut# 5.61 K/uL 1.0-7.0 Neut% 65.4 % 40.4-72.8 Platelet Count 360 K/uL 155-360 Potassium 4.3 mmol/L 3.5-5.1 Red Blood Count 4.70 M/uL 3.90-5.40 Red Cell Distri Width %CV 13.6 % 11.7-14.4 Red Cell Distri Width SD 42.2 fl 3-47 SGPT/Alt 25 U/L Low 30-65 Sgot/Ast 27 U/L 16-40 Sodium 140 mmol/L 136-145 Total Protein 8.6 g/dL High 6.3-8.0 White Blood Count 8.6 K/uL 3.1-10.7 Laboratory test 01/04/2012 N2N/CCD Import Gallbladder See Note 87 finding Laboratory test 12/10/2011 N2N/[facility] Import Esophageal Biopsy See Note gastrit, 88 finding no hpyl/dys Laboratory test 12/09/2011 N2N/CCD Import Aerobic Culture See Note 89 finding Gram Stain See Note 90 Laboratory test finding 11/14/2011 N2N/CCD Import Alb/Glob 1.1 ratio Albumin 3.9 g/dL 3.5-5.0 Alkaline Phosphatase 68 U/L 50-136 Anion Gap 13 mEq/L 8-16 BUN 18 mg/dL 5-23 BUN/Creat 25.7 ratio Bas% 0.2 % 0.0-1.1 Baso # 0.02 K/uL 0.0-0.1 Bilirubin,Total 0.2 mg/dL 0.2-1.2 Calcium 9.3 mg/dL 8.5-10.1 Carbon Dioxide 25 mEq/L 18-29 Chloride 107 mmol/L 98-107 Creatinine 0.7 mg/dL 0.5-1.4 Eo% 0.9 % 0.0-6.6 Eos # 0.08 K/uL 0.0-0.5 Globulin 3.6 g/dL 1.9-4.3 Glom Filtration Rate, Estimate >60 mL/min >60 Glucose 95 mg/dL 76-115 HCG Serum, Qualitative Negative Hematocrit 39.9 % 36.0-46.1 Hemoglobin 13.4 gm/dL 11.6-15.8 If >60 mL/min >60 91 Lipase 135 U/L 28-380 Lymph # 1.78 K/uL 0.8-3.4 Lymph % 19.7 % 17.0-46.1 Mean Cell Volume 87.7 fl 80.9-99.0 Mean Corpuscular HGB 29.5 pg 25.9-32.7 Mean Corpuscular HGB Conc 33.6 g/dL 30.8-34.3 Mean Platelet Volume 9.9 fL 8.9-12.4 Cobb # 0.61 K/uL 0.3-0.9 Cobb % 6.7 % 4.3-13.2 Neut# 6.55 K/uL 1.0-7.0 Neut% 72.5 % 40.4-72.8 Platelet Count 307 K/uL 155-360 Potassium 3.9 mmol/L 3.5-5.1 Red Blood Count 4.55 M/uL 3.90-5.40 Red Cell Distri Width %CV 13.6 % 11.7-14.4 Red Cell Distri Width SD 42.9 fl 3-47 SGPT/Alt 22 U/L Low 30-65 Sgot/Ast 18 U/L 16-40 Sodium 141 mmol/L 136-145 Total Protein 7.5 g/dL 6.3-8.0 Urine HCG (Qualitative) Negative Negative 92 White Blood Count 9.0 K/uL 3.1-10.7 Urine Screen 11/14/2011 N2N/CCD Import Urine Bilirubin - Negative Negative Dipstick Urine Blood Negative Negative Urine Clarity Clear Clear Urine Color Yellow Yellow Urine Glucose - Dipstick Negative mg/dL Negative Urine Ketone Negative mg/dL Negative Urine Leuk Esterase Negative Negative Urine Nitrite - Dipstick Negative Negative Urine PH 5.5 Low 6.5-7.5 Urine Protein - Dipstick Negative mg/dL Negative Urine Specific [place] 1.010 1.010-1.030 Urine Urobilinogen - Dipstick 0.2 E.U./dL 0.2-1.0 Laboratory test 06/14/2011 N2N/CCD Import Urine Bacteria Very Few None finding Seen Urine Bilirubin - Dipstick Negative Negative Urine Blood Trace Negative Urine Clarity Clear Clear Urine Color Yellow Yellow Urine Epithelial Cells Few None Seen Urine Glucose - Dipstick Negative mg/dL Negative Urine HCG (Qualitative) Negative Negative 93 Urine Ketone >=80 mg/dL High Negative Urine Leuk Esterase Negative Negative Urine Mucus Moderate None Seen Urine Nitrite - Dipstick Negative Negative Urine PH 6.0 Low 6.5-7.5 Urine Protein - Dipstick Negative mg/dL Negative Urine RBC 2-5 rbc/hpf 0-7 Urine Screen See Note 94 Urine Specific [place] 1.025 1.010-1.030 Urine Urobilinogen - Dipstick 0.2 E.U./dL 0.2-1.0 Urine WBC 0-2 wbc/hpf 0-7 Alb/Glob 1.1 ratio Albumin 3.7 g/dL 3.5-5.0 Alkaline Phosphatase 62 U/L 50-136 Anion Gap 15 mEq/L 8-16 BUN 13 mg/dL 5-23 BUN/Creat 21.6 ratio Bas% 0.3 % 0.0-1.1 Baso # 0.02 K/uL 0.0-0.1 Bilirubin,Total 0.2 mg/dL 0.2-1.2 Calcium 8.9 mg/dL 8.5-10.1 Carbon Dioxide 24 mEq/L 18-29 Chloride 105 mmol/L 98-107 Creatinine 0.6 mg/dL 0.5-1.4 Eo% 2.2 % 0.0-6.6 Eos # 0.17 K/uL 0.0-0.5 Globulin 3.5 g/dL 1.9-4.3 Glom Filtration Rate, Estimate >60 mL/min >60 Glucose 87 mg/dL 76-115 Hematocrit 36.9 % 36.0-46.1 Hemoglobin 12.7 gm/dL 11.6-15.8 If >60 mL/min >60 95 Lymph # 1.38 K/uL 0.8-3.4 Lymph % 17.6 % 17.0-46.1 Mean Cell Volume 85.0 fl 80.9-99.0 Mean Corpuscular HGB 29.3 pg 25.9-32.7 Mean Corpuscular HGB Conc 34.4 g/dL High 30.8-34.3 Mean Platelet Volume 9.5 fL 8.9-12.4 Cobb # 0.46 K/uL 0.3-0.9 Cobb % 5.9 % 4.3-13.2 Neut# 5.79 K/uL 1.0-7.0 Neut% 74.0 % High 40.4-72.8 Platelet Count 323 K/uL 155-360 Potassium 3.5 mmol/L 3.5-5.1 Red Blood Count 4.34 M/uL 3.90-5.40 Red Cell Distri Width %CV 13.8 % 11.7-14.4 Red Cell Distri Width SD 42.1 fl 3-47 SGPT/Alt 20 U/L Low 30-65 Sgot/Ast 19 U/L 16-40 Sodium 140 mmol/L 136-145 Total Protein 7.2 g/dL 6.3-8.0 White Blood Count 7.8 K/uL 3.1-10.7 Lipid Panel 05/10/2011 N2N/CCD Import Chol/HDL Ratio 3.4 96, 97 Cholesterol 209 mg/dL High 50-199 HDL Cholesterol 60 mg/dL 29-86 LDL 116 mg/dL 20-129 Triglycerides 165 mg/dL 30-249 VLDL Cholesterol 33 mg/dL Laboratory test finding 05/10/2011 N2N/CCD Import A/G Ratio 1.4 1.0-2.2 Absolute Basophils 0.063 K/ul 0.0-0.3 Absolute Eosinophils 0.083 K/ul 0.0-0.5 Absolute Lymphocytes 2.69 K/ul 0.8-4.8 Absolute Monocytes 0.608 K/ul 0.1-1.0 Absolute Neutrophils 5.39 K/ul 2.05-7.63 Albumin 4.5 g/dL 3.5-5.0 Alkaline Phosphatase 80 U/L 30-126 Alt 23 U/L 9-52 Ast 26 U/L 14-36 BUN 18 mg/dL 7-18 BUN/CR Ratio 25.3 Ratio High 12-20 Basophil 0.7 % 0-2 CK 100 U/L 26-190 98 Calcium 9.8 mg/dL 8.7-10.5 Carbon Dioxide 28 mmol/L 22-30 Chloride 105 mmol/L 98-107 Creatinine, Serum 0.7 mg/dL 0.7-1.2 Eosinophil 0.9 % 0-4 Globulin 3.1 g/dL 2.7-4.3 Glucose 83 mg/dL 65-105 Hematocrit 40.2 % 37.0-51.0 Hemoglobin 13.7 GM/dl 12.0-16.0 Lymphocytes 30.4 % 20-44 MCH 30.1 pg 26.0-32.0 MCHC 34.1 g/dL 31.0-36.0 MCV 88 FL 80-97 Monocytes 6.9 % 2-10.0 Neutrophils 61.0 % 50-70 Platelet Count 363 K/ul 140-440 Potassium 4.6 mmol/L 3.6-5.0 RBC 4.55 M/ul 4.2-6.3 RDW 12.4 % 11.5-14.5 Sodium 146 mmol/L High 137-145 TSH 0.891 uIU/ml 0.50-6.00 Total Bilirubin 0.4 mg/dL 0.2-1.3 Total Protein 7.6 g/dL 6.3-8.2 WBC 8.8 K/ul 4.1-10.9 Laboratory test 12/29/2010 N2N/CCD Import Vitamin 28.2 ng/mL Low 32.0- 100.0 99 finding D,25-Hydroxy Laboratory test 07/15/2010 N2N/CCD Import Culture Urine See Note 100 finding Laboratory test 06/16/2010 N2N/CCD Import C-Reactive 1.67 mg/L 0.00- 3.00 101 finding Protein,Cardiac Vitamin D,25-Hydroxy 27.4 ng/mL Low 32.0-100.0 102 LDL Cholesterol Profile 06/16/2010 N2N/CCD Import Cholesterol 197 mg/dL 120-200 HDL Cholesterol 42 mg/dL 32-96 LDL-Cholesterol 110 mg/dL 62-185 Triglycerides 225 mg/dL High 0-210 Laboratory test finding 05/31/2010 N2N/CCD Import Alb/Glob 1.1 Albumin 3.5 g/dL 3.5-5.0 Alkaline Phosphatase 63 U/L 50-136 Anion Gap 14 mEq/L 8-16 BUN 7 mg/dL 5-23 BUN/Creat 8.7 Bas% 0.2 % 0.0-1.1 Baso # 0.0 K/uL 0.0-0.1 Bilirubin,Total 0.3 mg/dL 0.2-1.2 Calcium 8.0 mg/dL Low 8.5-10.1 Carbon Dioxide 23 mEq/L 21-32 Chloride 99 mEq/L 98-107 Creatinine 0.8 mg/dL 0.5-1.4 Eo% 4.0 % 0.0-6.6 Eos # 0.2 K/uL 0.0-0.5 Globulin 3.3 gm/dL 1.9-4.3 Glom Filtration Rate, Estimate >60 mL/min >60 Glucose 99 mg/dL 76-115 Hematocrit 35.0 % Low 36.0-46.1 Hemoglobin 11.8 gm/dL 11.6-15.8 If >60 mL/min >60 103 Lymph # 0.6 K/uL Low 0.8-3.4 Lymph % 13.3 % Low 17.0-46.1 Mean Cell Volume 84.1 fl 80.9-99.0 Mean Corpuscular HGB 28.4 pg 25.9-32.7 Mean Corpuscular HGB Conc 33.7 g/dL 30.8-34.3 Mean Platelet Volume 9.2 fL 8.9-12.4 Cobb # 0.3 K/uL 0.3-0.9 Cobb % 6.9 % 4.3-13.2 Neut# 3.4 K/uL 1.0-7.0 Neut% 75.6 % High 40.4-72.8 Platelet Count 247 K/uL 155-360 Potassium 3.5 mEq/L 3.5-5.1 Red Blood Count 4.16 M/uL 3.90-5.40 Red Cell Distri Width %CV 14.9 % High 11.7-14.4 Red Cell Distri Width SD 45 fl 3-47 SGPT/Alt 26 U/L Low 30-65 Sgot/Ast 19 U/L 16-40 Sodium 132 mEq/L Low 136-145 Total Protein 6.8 g/dL 6.3-8.0 Urine Bacteria Very Few None Seen Urine Bilirubin - Dipstick Negative Negative Urine Blood Small High Negative Urine Clarity Clear Clear Urine Color Yellow Yellow Urine Epithelial Cells Very Few None Seen Urine Glucose - Dipstick Negative mg/dL Negative Urine Ketone Trace mg/dL High Negative Urine Leuk Esterase Negative Negative Urine Nitrite - Dipstick Negative Negative Urine PH 5.5 Low 6.5-7.5 Urine Protein - Dipstick Negative mg/dL Negative Urine RBC 0-2 rbc/hpf 0-7 Urine Screen See Note 104 Urine Specific [place] 1.020 1.010-1.030 Urine Urobilinogen - Dipstick 0.2 E.U./dL 0.2-1.0 Urine WBC 0-2 wbc/hpf 0-7 White Blood Count 4.5 K/uL 3.1-10.7 Laboratory test finding 05/25/2010 N2N/CCD Import Alb/Glob 1.2 Albumin 3.7 g/dL 3.5-5.0 Alkaline Phosphatase 73 U/L 50-136 Anion Gap 9 mEq/L 8-16 BUN 12 mg/dL 5-23 BUN/Creat 15.0 Bas% 0.3 % 0.0-1.1 Baso # 0.0 K/uL 0.0-0.1 Bilirubin,Total 0.1 mg/dL Low 0.2-1.2 Calcium 8.3 mg/dL Low 8.5-10.1 Carbon Dioxide 26 mEq/L 21-32 Chloride 107 mEq/L 98-107 Creatinine 0.8 mg/dL 0.5-1.4 Eo% 1.2 % 0.0-6.6 Eos # 0.1 K/uL 0.0-0.5 Globulin 3.2 gm/dL 1.9-4.3 Glom Filtration Rate, Estimate >60 mL/min >60 Glucose 95 mg/dL 76-115 Hematocrit 33.6 % Low 36.0-46.1 Hemoglobin 11.3 gm/dL Low 11.6-15.8 If >60 mL/min >60 105 Lipase 110 U/L 28-380 106 Lymph # 2.5 K/uL 0.8-3.4 Lymph % 28.5 % 17.0-46.1 Mean Cell Volume 85.3 fl 80.9-99.0 Mean Corpuscular HGB 28.7 pg 25.9-32.7 Mean Corpuscular HGB Conc 33.6 g/dL 30.8-34.3 Mean Platelet Volume 9.8 fL 8.9-12.4 Cobb # 0.7 K/uL 0.3-0.9 Cobb % 7.7 % 4.3-13.2 Neut# 5.5 K/uL 1.0-7.0 Neut% 62.3 % 40.4-72.8 Platelet Count 289 K/uL 155-360 Potassium 3.8 mEq/L 3.5-5.1 Red Blood Count 3.94 M/uL 3.90-5.40 Red Cell Distri Width %CV 14.9 % High 11.7-14.4 Red Cell Distri Width SD 45 fl 3-47 SGPT/Alt 27 U/L Low 30-65 Sgot/Ast 19 U/L 16-40 Sodium 138 mEq/L 136-145 Total Protein 6.9 g/dL 6.3-8.0 White Blood Count 8.8 K/uL 3.1-10.7 Urine HCG (Qualitative) Negative Negative 107 Urine Screen 05/25/2010 N2N[facility] Import Urine Bilirubin - Negative Negative Dipstick Urine Blood Negative Negative Urine Clarity Clear Clear Urine Color Yellow Yellow Urine Glucose - Dipstick Negative mg/dL Negative Urine Ketone Negative mg/dL Negative Urine Leuk Esterase Negative Negative Urine Nitrite - Dipstick Negative Negative Urine PH 5.5 Low 6.5-7.5 Urine Protein - Dipstick Negative mg/dL Negative Urine Specific [place] 1.010 1.010-1.030 Urine Urobilinogen - Dipstick 0.2 E.U./dL 0.2-1.0 Laboratory test 11/15/2009 [facility]2N[facility] Import Throat Culture See Note 108 finding Complete Laboratory test 10/09/2007 [facility] Import Rapid Strep pos finding Test Laboratory test 07/28/2007 N2N/CCD Import Pathology Exam chronic 109, 110 finding duodenitis Rapid Urease Negative Laboratory test finding 05/28/2007 N2N/CCD Import Anion Gap 12 mEq/L 8- 16 BUN 9 mg/dL 5-23 BUN/Creat 12.8 Bas% 0.3 % 0.1-1.0 Baso # 0.0 K/uL Low 0.1-0.2 CK 59 U/L 26-190 Calcium 9.0 mg/dL 8.5-10.1 Carbon Dioxide 24 mEq/L 21-32 Chloride 107 mEq/L 98-107 Creatinine 0.7 mg/dL 0.5-1.4 Eo% 0.7 % 0.0-5.0 Eos # 0.1 K/uL 0.0-0.5 Glucose 88 mg/dL 76-115 Hematocrit 36.5 % 35.0-46.0 Hemoglobin 12.7 gm/dL 11.8-15.7 Lipase 167 U/L 114-286 Lymph # 2.1 K/uL 1.2-4.0 Lymph % 27.0 % 17.0-56.0 Mean Cell Volume 90.9 fl 83.0-99.0 Mean Corpuscular HGB 31.6 pg 28.3-34.2 Mean Corpuscular HGB Conc 34.7 g/dL 32.0-35.5 Mean Platelet Volume 8.1 fl 6.0-9.9 Cobb # 0.4 K/uL 0.0-0.6 Cobb % 5.5 % 0.0-10.0 Neut# 5.1 K/uL 1.8-7.0 Neut% 66.5 % 33.0-73.0 Platelet Count 276 K/uL 145-400 Potassium 3.6 mEq/L 3.5-5.1 Red Blood Count 4.01 M/uL 3.80-5.40 Red Cell Distri Width %CV 11.6 % Low 12.3-15.8 Sodium 139 mEq/L 136-145 Troponin-I 0.0 ng/mL 0.0-0.6 111 Urine Amorph Sediment Small Negative Urine Bacteria Few None Seen Urine Bilirubin - Dipstick Negative Negative Urine Blood Trace Negative Urine Clarity Clear Clear Urine Color Yellow Yellow Urine Epithelial Cells Few None Seen Urine Glucose - Dipstick Negative Negative m Urine HCG (Qualitative) Negative Negative 112 Urine Ketone Negative Negative m Urine Leuk Esterase Negative Negative Urine Nitrite - Dipstick Negative Negative Urine PH 5.5 Low 6.5-7.5 Urine Protein - Dipstick Negative Negative m Urine RBC None Seen Negative r Urine Specific [place] 1.010 1.010-1.030 Urine Urobilinogen - Dipstick 0.2 E.U./dL 0.2-1.0 Urine WBC 0-2 Negative w White Blood Count 7.7 K/uL 4.3-10.5 Liver Function Tests 05/28/2007 [employer] Import Albumin 3.9 g/dL 3.5-5.0 Alkaline Phosphatase 57 U/L 50-136 Bilirubin,Direct 0.1 mg/dL 0.1-0.4 Bilirubin,Indirect 0.3 mg/dL 0.0-0.9 Bilirubin,Total 0.4 mg/dL 0.2-1.2 SGPT/Alt 26 U/L Low 30-65 Sgot/Ast 18 U/L 16-40 Total Protein 7.2 g/dL 6.3-8.0 Laboratory test finding 01/23/2007 [facility] Import Amylase 42 U/L 18-98 Helicobacter Pylori, Igg <0.9 U/mL 0.0-0.8 113 Laboratory test finding 12/28/2006 N2N/CCD Import A/G Ratio 1.7 1.0-2.2 Absolute Basophils 0.06 K/ul 0.0-0.3 Absolute Eosinophils 0.13 K/ul 0.0-0.5 Absolute Lymphocytes 1.85 K/ul 0.8-4.8 Absolute Monocytes 0.44 K/ul 0.1-1.0 Absolute Neutrophils 5.63 K/ul 2.05-7.63 Albumin 4.2 g/dL 3.5-5.0 Alkaline Phosphatase 68 U/L 38-126 Alt 32 U/L 9-52 Ast 25 U/L 14-36 BUN 12 mg/dL 7-18 BUN/CR Ratio 15.0 Ratio 12-20 Basophil 0.7 % 0-2 Calcium 10.1 mg/dL 8.7-10.5 Carbon Dioxide 27 mmol/L 22-30 Chloride 105 mmol/L 98-107 Creatinine, Serum 0.8 mg/dL 0.7-1.2 Eosinophil 1.6 % 0-4 Esr (Sed Rate/Westergren) 17 SEC 0-25 Globulin 2.5 g/dL Low 2.7-4.3 Glucose 84 mg/dL 65-105 Hematocrit 38.3 % 37.0-51.0 Hemoglobin 13.2 GM/dl 12.0-16.0 Lymphocytes 22.8 % 20-44 MCH 31.8 pg 26.0-32.0 MCHC 34.6 g/dL 31.0-36.0 MCV 92 FL 80-97 Monocytes 5.4 % 2-10.0 Neutrophils 69.5 % 50-70 Platelet Count 314 K/ul 140-440 Potassium 4.4 mmol/L 3.6-5.0 RBC 4.17 M/ul Low 4.2-6.3 RDW 10.8 % Low 11.5-14.5 Sodium 141 mmol/L 137-145 Total Bilirubin 0.3 mg/dL 0.2-1.3 Total Protein 6.8 g/dL 6.3-8.2 WBC 8.1 K/ul 4.1-10.9 Anti-Nuclear Antibody(S) Negative Negative Rheumatoid Factor Screen Negative Negative Laboratory test finding 12/24/2005 N2N/CCD Import Anion Gap 9 mEq/L 8- 16 BUN 16 mg/dL 5-23 BUN/Creat 22.8 Calcium 9.1 mg/dL 8.5-10.1 Carbon Dioxide 30 mEq/L 21-32 Chloride 104 mEq/L 98-107 Creatinine 0.7 mg/dL 0.5-1.4 Glucose 84 mg/dL 76-115 Hematocrit 38.4 % 34.0-46.0 Hemoglobin 13.2 gm/dL 11.5-15.5 Mean Cell Volume 90.7 fL 80.0-96.0 Mean Corpuscular HGB 31.2 pg 27.0-33.0 Mean Corpuscular HGB Conc 34.4 g/dL 31.7-36.0 Mean Platelet Volume 6.8 fl 6.6-10.6 Platelet Count 366 K/uL 150-400 Potassium 4.4 mEq/L 3.5-5.1 Red Blood Count 4.23 M/uL 3.90-5.20 Red Cell Distri Width %CV 13.2 % 11.6-15.8 SGPT/Alt 29 U/L Low 30-65 Sodium 139 mEq/L 136-145 Thyroid Stim Hormone 0.85 uIU/mL 0.49-4.67 White Blood Count 9.9 K/uL 3.4-10.5 1 K22.70 R73.01 R20.8 E78.2 M15.0 L40.50 2 Elevated levels of HbA1c suggest the need for more aggressive treatment of glycemia. The [place] [employer] recommends that a primary goal of therapy should be a HbA1c of <7% and that physicians should re-evaluate the treatment regimen in patients with HbA1c values consistently >8%. 3 Reference Guidelines*: Desirable: ........... < 200 mg/dL Borderline High: ..... 200-239 mg/dL High: ................ >=240 mg/dL * The National Cholesterol Education Program (NCEP) 4 Reference Guidelines*: Normal: ............. < 150 mg/dL Borderline High: .... 150-199 mg/dL High: ............... 200-499 mg/dL Very High: .......... > 500 mg/dL * Source: National Cholesterol Education Program (NCEP) 5 Reference Guidelines*: Low HDL: ..... < 40 mg/dL Normal: ..... 40-60 mg/dL Desirable: ... > 60 mg/dL *The National Cholesterol Education Program(NCEP) 6 Reference Guidelines*: Optimal:........... <100 mg/dL Near Optimal....... 100-129 mg/dL Borderline High.... 130-159 mg/dL High............... 160-189 mg/dL Very High.......... >=190 mg/dL * Source: National Cholesterol Education Program (NCEP) 7 Note: Persistent reduction for 3 months or more in an eGFR <60 mL/min/1.73 m2 defines CKD. Patients with eGFR values >/=60 mL/min/1.73 m2 may also have CKD if evidence of persistent proteinuria is present. The original MDRD equation for estimated GFR is not valid for patients less than 18 years of age. Additional information may be found at www.[email or web address]. 8 SEVERE MIGRAINE, NAUSEA 9 Method: Sediplast Modified Westergren 10 Note: Persistent reduction for 3 months or more in an eGFR <60 mL/min/1.73 m2 defines CKD. Patients with eGFR values >/=60 mL/min/1.73 m2 may also have CKD if evidence of persistent proteinuria is present. The original MDRD equation for estimated GFR is not valid for patients less than 18 years of age. Additional information may be found at [email or web address]. 11 to be done 1 week prior to March 2018 OV 12 Per NCEP ATP III Guidelines: Results lower than 40 mg/dL are suggestive of increased risk for coronary artery disease. Results > or=to 60 mg/dL are considered a negative risk factor. 13 Per NCEP ATP III Guidelines: Normal Population <130 Patients with medical conditions: CHD/DM Optimal: <100 Borderline high: 130-159 High: 160-189 Very high: >189 14 Please schedule for Oct 18 2017 15 Updated reference range on new analyzer 16 Updated reference range on new analyzer 17 Concerning GFR Guidelines: Normal function or mild renal disease, if clinically at risk: >/=60 mL/min Moderately decreased: 30-59 Severely decreased: 15-29 Renal failure: <15 Glomerular Filtration Rate (GFR) is estimated based on the MDRD equation, which assumes a steady state for creatinine as recommended by the National Kidney Disease Education Program in conjunction with the National Institutes of Health and the National Kidney Foundation. Clinical conditions in which it may be necessary to measure GFR by using clearance methods include extremes of age and body size, severe malnutrition or obesity, diseases of skeletal muscle, paraplegia or quadriplegia, vegetarian diet, rapidly changing kidney function, and calculation of the dose of potentially toxic drugs that are excreted by the kidneys. 18 Concerning GFR Guidelines for Americans: Normal function or mild renal disease, if clinically at risk: >/=60 mL/min Moderately decreased: 30-59 Severely decreased: 15-29 Renal failure: <15 19 Updated reference range on new analyzer 20 HAD SURGERY 08/04/17 CONSTIPATED,FEVER 21 Note: Persistent reduction for 3 months or more in an eGFR <60 mL/min/1.73 m2 defines CKD. Patients with eGFR values >/=60 mL/min/1.73 m2 may also have CKD if evidence of persistent proteinuria is present. The original MDRD equation for estimated GFR is not valid for patients less than 18 years of age. Additional information may be found at [email or web address]. 22 URINE, CLEAN CATCH 23 PATIENT GOING TO [facility] to be done 1 week prior to Jun 2017 OV 10 yr. 3.7% 24 Updated reference range on new analyzer 25 Updated reference range on new analyzer 26 Concerning GFR Guidelines for Americans: Normal function or mild renal disease, if clinically at risk: >/=60 mL/min Moderately decreased: 30-59 Severely decreased: 15-29 Renal failure: <15 27 Concerning GFR Guidelines: Normal function or mild renal disease, if clinically at risk: >/=60 mL/min Moderately decreased: 30-59 Severely decreased: 15-29 Renal failure: <15 Glomerular Filtration Rate (GFR) is estimated based on the MDRD equation, which assumes a steady state for creatinine as recommended by the National Kidney Disease Education Program in conjunction with the National Institutes of Health and the National Kidney Foundation. Clinical conditions in which it may be necessary to measure GFR by using clearance methods include extremes of age and body size, severe malnutrition or obesity, diseases of skeletal muscle, paraplegia or quadriplegia, vegetarian diet, rapidly changing kidney function, and calculation of the dose of potentially toxic drugs that are excreted by the kidneys. 28 Updated reference range on new analyzer 29 S/CO Ratio >/=1.0 is REACTIVE. S/CO <5.0 is Low Reactive. S/CO >/= 5.0 is High Reactive. Effective May 20, 2017 all anti-HCV reactive samples are sent for quantitative PCR confirmation. 30 Per NCEP ATP III Guidelines: Results lower than 40 mg/dL are suggestive of increased risk for coronary artery disease. Results > or=to 60 mg/dL are considered a negative risk factor. 31 Per NCEP ATP III Guidelines: Normal Population <130 Patients with medical conditions: CHD/DM Optimal: <100 Borderline high: 130-159 High: 160-189 Very high: >189 32 Updated reference range on new analyzer 33 Updated reference range on new analyzer 34 Concerning GFR Guidelines for Americans: Normal function or mild renal disease, if clinically at risk: >/=60 mL/min Moderately decreased: 30-59 Severely decreased: 15-29 Renal failure: <15 35 Concerning GFR Guidelines: Normal function or mild renal disease, if clinically at risk: >/=60 mL/min Moderately decreased: 30-59 Severely decreased: 15-29 Renal failure: <15 Glomerular Filtration Rate (GFR) is estimated based on the MDRD equation, which assumes a steady state for creatinine as recommended by the National Kidney Disease Education Program in conjunction with the National Institutes of Health and the National Kidney Foundation. Clinical conditions in which it may be necessary to measure GFR by using clearance methods include extremes of age and body size, severe malnutrition or obesity, diseases of skeletal muscle, paraplegia or quadriplegia, vegetarian diet, rapidly changing kidney function, and calculation of the dose of potentially toxic drugs that are excreted by the kidneys. 36 Updated reference range on new analyzer 37 POSS DIVERTICULITIS 38 FIRST MORNING SPECIMENS GENERALLY CONTAIN THE HIGHEST CONCENTRATION OF HCG AND ARE RECOMMENDED FOR EARLY DETECTION OF . Method: Quidel QuickVue One-Step Immunoassay 39 URINE, CLEAN CATCH 40 Instrument flagged sample for slide review. Less than 10% Bands seen, no other immature WBC's seen. RBC morphology essentially normal. Platelet estimate=NORMAL 41 URINE, CLEAN CATCH 42 DIZZY, HAD SURGERY 11/15, ABD PAIN 43 URINE, CLEAN CATCH 44 Note: Persistent reduction for 3 months or more in an eGFR <60 mL/min/1.73 m2 defines CKD. Patients with eGFR values >/=60 mL/min/1.73 m2 may also have CKD if evidence of persistent proteinuria is present. The original MDRD equation for estimated GFR is not valid for patients less than 18 years of age. Additional information may be found at [email or web address]. 45 0.0 - 0.045 ng/mL: Normal 0.046 - 0.5 ng/mL: Suggestive 0.6 - 1.5 ng/mL: Consistent 46 DIVERTICULITIS 47 NEGATIVE FOR C. DIFFICILE TOXIN A/B. CORRELATE RESULTS WITH CLINICAL CONDITION. 48 URINE, CLEAN CATCH 49 Note: Persistent reduction for 3 months or more in an eGFR <60 mL/min/1.73 m2 defines CKD. Patients with eGFR values >/=60 mL/min/1.73 m2 may also have CKD if evidence of persistent proteinuria is present. The original MDRD equation for estimated GFR is not valid for patients less than 18 years of age. Additional information may be found at [email or web address]. 50 Per NCEP ATP III Guidelines: Results lower than 40 mg/dL are suggestive of increased risk for coronary artery disease. Results > or=to 60 mg/dL are considered a negative risk factor. 51 Per NCEP ATP III Guidelines: Normal Population <130 Patients with medical conditions: CHD/DM Optimal: <100 Borderline high: 130-159 High: 160-189 Very high: >189 52 LEFT SIDE PAIN 53 URINE, CLEAN CATCH 54 Note: Persistent reduction for 3 months or more in an eGFR <60 mL/min/1.73 m2 defines CKD. Patients with eGFR values >/=60 mL/min/1.73 m2 may also have CKD if evidence of persistent proteinuria is present. The original MDRD equation for estimated GFR is not valid for patients less than 18 years of age. Additional information may be found at [email or web address]. 55 Note: Persistent reduction for 3 months or more in an eGFR <60 mL/min/1.73 m2 defines CKD. Patients with eGFR values >/=60 mL/min/1.73 m2 may also have CKD if evidence of persistent proteinuria is present. The original MDRD equation for estimated GFR is not valid for patients less than 18 years of age. Additional information may be found at [email or web address]. 56 NORMAL THROAT CHER 57 Note: Persistent reduction for 3 months or more in an eGFR <60 mL/min/1.73 m2 defines CKD. Patients with eGFR values >/=60 mL/min/1.73 m2 may also have CKD if evidence of persistent proteinuria is present. The original MDRD equation for estimated GFR is not valid for patients less than 18 years of age. Additional information may be found at [email or web address]. 58 OPERATION/PROCEDURE Resection, left side colon DIAGNOSIS: "SIGMOID COLON, RESECTION": DIVERTICULAR DISEASE, INACTIVE. NIYA/jen T : 06/25/2013 12:47 GROSS Received in formalin labeled, "SIGMOID COLON" is a 17.5 cm. segment of colon with attached mesocolon. The colon measures up to 2.5 cm. in diameter and the mesocolon measures up to 3.5 cm. in width and 3.2 cm. in thickness and is attached to the entire length of the colon. No orientation is provided. The serosal surface of the colon is grossly unremarkable. The colon is opened along the mesenteric edge. Upon opening it contains approximately fifty diverticula measuring up to 0.4 cm. in diameter. No tumor is grossly seen, no evidence of purulent exudate. The colonic mucosa is otherwise unremarkable. Union Organizer sections are submitted as follows: A=two margins, B-E=nutrition representative sections of the colon including the diverticulum. /jen MICROSCOPIC Sections show a thickened muscularis propria and the diverticular outpouchings are lined by mucosa, muscularis mucosae, submucosa, and variable amounts of muscularis propria. The mucosa appears normal. The outer muscular wall is attenuated. PRE OPERATIVE DIAGNOSIS Recurrent diverticulitis REVIEW CODE CODE: I ---- APURVA Jones MD 06/25/13 1426 ---- 59 OPERATION/PROCEDURE Colon. DIAGNOSIS: "SIGMOID COLON POLYP, BIOPSY": HYPERPLASTIC POLYP. /susie 1204 GROSS "SIGMOID POLYP" . The specimen is received in an appropriately labeled container. This contains two rounded resendiz brown colored pieces of soft tissue measuring up to 0.3 cm.; filtered and submitted in toto within a single cassette. /susie MICROSCOPIC Sections show colonic mucosa lined by an increased number of goblet cells. The glands have a serrated, saw tooth appearance. The nuclei are bland, and basal. PRE OPERATIVE DIAGNOSIS Diverticulitis REVIEW CODE CODE: I ---- APURVA Jones MD 06/22/13 1337 ---- 60 Note: Persistent reduction for 3 months or more in an eGFR <60 mL/min/1.73 m2 defines CKD. Patients with eGFR values >/=60 mL/min/1.73 m2 may also have CKD if evidence of persistent proteinuria is present. The original MDRD equation for estimated GFR is not valid for patients less than 18 years of age. Additional information may be found at [email or web address]. 61 Note: Persistent reduction for 3 months or more in an eGFR <60 mL/min/1.73 m2 defines CKD. Patients with eGFR values >/=60 mL/min/1.73 m2 may also have CKD if evidence of persistent proteinuria is present. The original MDRD equation for estimated GFR is not valid for patients less than 18 years of age. Additional information may be found at [email or web address]. 62 NEGATIVE FOR C. DIFFICILE TOXIN A/B. CORRELATE RESULTS WITH CLINICAL CONDITION. 63 SHIGA TOXIN 1 NOT DETECTED 64 SHIGA TOXIN 2 NOT DETECTED 65 Organism 1 ! NO ENTERIC PATHOGENS ISOLATED . ! ................................................... NOTE: ! INCLUDES TESTING FOR SALMONELLA, SHIGELLA, AEROMONAS, . ! PLESIOMONAS, CAMPYLOBACTER, AND E. COLI 0157:H7 . ! ................................................... . ! YERSINIA AND VIBRIO ARE NOT ROUTINELY SCREENED FOR AND . ! SHOULD BE REQUESTED SEPARATELY 66 Note: Persistent reduction for 3 months or more in an eGFR <60 mL/min/1.73 m2 defines CKD. Patients with eGFR values >/=60 mL/min/1.73 m2 may also have CKD if evidence of persistent proteinuria is present. The original MDRD equation for estimated GFR is not valid for patients less than 18 years of age. Additional information may be found at [email or web address]. 67 Note: Persistent reduction for 3 months or more in an eGFR <60 mL/min/1.73 m2 defines CKD. Patients with eGFR values >/=60 mL/min/1.73 m2 may also have CKD if evidence of persistent proteinuria is present. The original MDRD equation for estimated GFR is not valid for patients less than 18 years of age. Additional information may be found at [email or web address]. 68 FIRST MORNING SPECIMENS GENERALLY CONTAIN THE HIGHEST CONCENTRATION OF HCG AND ARE RECOMMENDED FOR EARLY DETECTION OF . 69 Note: Persistent reduction for 3 months or more in an eGFR <60 mL/min/1.73 m2 defines CKD. Patients with eGFR values >/=60 mL/min/1.73 m2 may also have CKD if evidence of persistent proteinuria is present. The original MDRD equation for estimated GFR is not valid for patients less than 18 years of age. Additional information may be found at [email or web address]. 70 COLONY COUNT ! 5,000 - 10,000 CFU/ml Organism 1 ! MIXED URETHRAL CHER 71 Note: Persistent reduction for 3 months or more in an eGFR <60 mL/min/1.73 m2 defines CKD. Patients with eGFR values >/=60 mL/min/1.73 m2 may also have CKD if evidence of persistent proteinuria is present. The original MDRD equation for estimated GFR is not valid for patients less than 18 years of age. Additional information may be found at [email or web address]. 72 Is patient on heparin protocol? N Is patient on anticoagulants? Unknown QUERY: Anticoagulant Therapy? QUERY: Date of Last Dose: QUERY: Time of Last Dose: 73 Note: Persistent reduction for 3 months or more in an eGFR <60 mL/min/1.73 m2 defines CKD. Patients with eGFR values >/=60 mL/min/1.73 m2 may also have CKD if evidence of persistent proteinuria is present. The original MDRD equation for estimated GFR is not valid for patients less than 18 years of age. Additional information may be found at [email or web address]. 74 THERAPEUTIC INR RANGE: 2.0 - 3.0 DVT, Pulmonary embolus, prophylaxis against venous thrombosis or systemic embolization in high risk patients. 2.5 - 3.5 Mechanical heart valves 75 Note: Persistent reduction for 3 months or more in an eGFR <60 mL/min/1.73 m2 defines CKD. Patients with eGFR values >/=60 mL/min/1.73 m2 may also have CKD if evidence of persistent proteinuria is present. The original MDRD equation for estimated GFR is not valid for patients less than 18 years of age. Additional information may be found at [email or web address]. 76 NEGATIVE FOR RENETTA SPECIES Testing Performed by: [place] [address] 77 NEGATIVE FOR GARDNERELLA VAGINALIS 78 GENITAL CHER 79 GRAM STAIN ! GRAM STAIN INDICATES NORMAL GENITAL CHER ! MODERATE GR POS. BACILLI SUGGESTIVE OF LACTOBACILLUS ! SP. 80 NEGATIVE FOR TRICHOMONAS VAGINALIS 81 Vitamin D deficiency has been defined by the [place] [employer] and an Endocrine Society practice guideline as a level of serum 25-OH vitamin D less than 20 ng/mL (1,2). The Endocrine Society went on to further define vitamin D insufficiency as a level between 21 and 29 ng/mL (2). 1. IOM ([place] [employer]). 2010. Dietary reference intakes for calcium and D. [place]: The National Academies Press. 2. Bhupendra MF, Goran NC, Mary JOHNSON, et al. Evaluation, treatment, and prevention of vitamin D deficiency: an Endocrine Society clinical practice guideline. JCEM. 2010; 96(7):1911-30. Performed at: RN - [facility] [address] [id number] [place]: Tata Callejas MD, Phone: [phone] 82 prior high 83 Note: Persistent reduction for 3 months or more in an eGFR <60 mL/min/1.73 m2 defines CKD. Patients with eGFR values >/=60 mL/min/1.73 m2 may also have CKD if evidence of persistent proteinuria is present. The original MDRD equation for estimated GFR is not valid for patients less than 18 years of age. Additional information may be found at [email or web address]. 84 NO GROWTH: FINAL REPORT 85 GRAM STAIN ! NO ORGANISMS SEEN 86 Note: Persistent reduction for 3 months or more in an eGFR <60 mL/min/1.73 m2 defines CKD. Patients with eGFR values >/=60 mL/min/1.73 m2 may also have CKD if evidence of persistent proteinuria is present. The original MDRD equation for estimated GFR is not valid for patients less than 18 years of age. Additional information may be found at [email or web address]. 87 OPERATION/PROCEDURE Lap. milan. DIAGNOSIS: "GALLBLADDER": CHRONIC CHOLECYSTITIS, AND CHOLELITHIASIS. NO EVIDENCE OF ACUTE INFLAMMATION, DYSPLASIA NOR NEOPLASIA APPRECIATED. WYS/clf GROSS The specimen is received in a single container additionally labeled "GALLBLADDER ". This contains a grossly recognizable unopened gallbladder. This has a green-purple shiny smooth surface and overall measures 7.2 x 3.0 x 2.0 cm. in overall dimensions. There is no visible wall defect. The wall has a uniform thickness of 0.2 cm. The mucosal surface is green, velvety smooth and unremarkable. Trabeculations are noted. No josue reticular discoloration of cholesterolosis is noted. Approximately ten stones are noted with a diameter up to 0.5 cm. None obstruct the neck. Union Organizer sections are submitted within a single cassette. WS/clf MICROSCOPIC Sections show gallbladder mucosa lined by columnar epithelium with focal synechia, and Rokitansky-Aschoff sinus formation. The submucosa has a mild infiltrate of lymphocytes and plasma cells. The muscular wall is slightly fibrotic and hypertrophied. PRE OPERATIVE DIAGNOSIS Cholelithiasis REVIEW CODE CODE: I ---- ARABELLA Gutierrez MD 01/05/12 1358 ---- 88 OPERATION/PROCEDURE Gastroscopy DIAGNOSIS: PART 1: "SMALL BOWEL, BIOPSY": SMALL BOWEL MUCOSA WITHOUT SIGNIFICANT PATHOLOGICAL ABNORMALITY. PART 2: "STOMACH, BIOPSY": REACTIVE GASTROPATHY WITH FOCAL PARIETAL CELL HYPERPLASIA. NO HELICOBACTER SEEN WITH SPECIAL STAIN. PART 3: "ESOPHAGEAL BIOPSY": FRAGMENTS OF GASTRIC AND ESOPHAGEAL MUCOSA OF JUNCTIONAL ORIGIN DEMONSTRATING REACTIVE CHANGES IN A BACKGROUND INFLAMMATION CONSISTENT WITH ESOPHAGITIS AND GASTRITIS, NONSPECIFIC, MILD TO MODERATE. NIYA/jen GROSS Part 1; "SMALL BOWEL BIOPSY". The specimen is received in an appropriately labeled container. This contains seven rounded resendiz colored pieces of soft tissue measuring up to 0.4 cm.; filtered and submitted in toto within a single cassette. Part 2; "STOMACH BIOPSIES". The specimen is received in an appropriately labeled container. This contains two rounded resendiz colored pieces of soft tissue measuring up to 0.6 cm.; filtered and submitted in toto within a single cassette. Part 3; "ESOPHAGEAL BIOPSY". The specimen is received in an appropriately labeled container. This contains three rounded resendiz colored pieces of soft tissue measuring up to 0.4 cm.; filtered and submitted in toto within a single cassette. WS/clf MICROSCOPIC Part 1: Sections reveal villiform mucosa with well- oriented crypts, with normal maturation of lining cells to the surface. The stroma contains a normal degree of lymphoplasmacytic infiltration. Part 2: Sections show glandular elongation, tortuosity, and hypercellularity of gastric pits, foveolar hyperplasia, and villiform transformation of the mucosa. The glands appear more angular than usual. Foveolar cells show mild mucin depletion and vacuolization. There is capillary congestion, vasodilatation and edema. Smooth muscle fibers extend high into the lamina propria. There are interstitial chronic inflammatory cells. There is a noticeable prominence of parietal cells. There are no Helicobacter-type bacteria identified with Warthin-Starry staining. The controls are adequate. Part 3: Specimen is composed of a mixture of fragments from the esophagus, and stomach. In one piece, there is the combination of squamous and columnar superficial epithelium consistent with junctional mucosa. The squamous component is acanthotic and demonstrates mild spongiosis with exocytosis of inflammatory cells. The glandular component demonstrates mild reactive distortion, and branching associated with varying degrees of chronic inflammation. Goblet cell metaplasia characteristic of Kelley type metaplasia is not observed. PRE OPERATIVE DIAGNOSIS Severe heartburn REVIEW CODE CODE: I ---- APURVA Jones MD 12/13/11 0579 ---- 89 Organism 1 ! STAPHYLOCOCCUS AUREUS STAPHYLOCOCCUS AUREUS Target Route Dose M.I.C. RX AB COST ------ ----- -------- ------ -- ------ PENICILLIN G >= 0.5 R OXACILLIN <=0.25 S TETRACYCLINE >=16 R TRIMETHOPRIM/SULFAMETHOXAZOLE BLOOD PO DS <=10 S 0.39 AMOXICILLIN R AMOXICILLIN/CLAVULANATE S AMPICILLIN/SULBACTAM S CEFAZOLIN S GENTAMICIN <=0.5 S ERYTHROMYCIN >=8 R CLINDAMYCIN BLOOD <=0.25 R This Staphylococcal species is presumed to be resistant based on detection of inducible clindamycin resistance. Clindamycin may still be effective in some patients. CIPROFLOXACIN <=0.5 S MOXIFLOXACIN <=0.25 S LEVOFLOXACIN <=0.12 S CEFACLOR S AZITHROMYCIN R CEFUROXIME S PIPERACILLIN R CEFTRIAXONE S VANCOMYCIN <=0.5 S 90 GRAM STAIN ! VERY FEW WHITE BLOOD CELLS ! MODERATE GRAM POSITIVE COCCI 91 Note: Persistent reduction for 3 months or more in an eGFR <60 mL/min/1.73 m2 defines CKD. Patients with eGFR values >/=60 mL/min/1.73 m2 may also have CKD if evidence of persistent proteinuria is present. The original MDRD equation for estimated GFR is not valid for patients less than 18 years of age. Additional information may be found at [email or web address]. 92 FIRST MORNING SPECIMENS GENERALLY CONTAIN THE HIGHEST CONCENTRATION OF HCG AND ARE RECOMMENDED FOR EARLY DETECTION OF . 93 FIRST MORNING SPECIMENS GENERALLY CONTAIN THE HIGHEST CONCENTRATION OF HCG AND ARE RECOMMENDED FOR EARLY DETECTION OF . 94 06/14/11 LAB.JET Deleted by [facility] 95 Note: Persistent reduction for 3 months or more in an eGFR <60 mL/min/1.73 m2 defines CKD. Patients with eGFR values >/=60 mL/min/1.73 m2 may also have CKD if evidence of persistent proteinuria is present. The original MDRD equation for estimated GFR is not valid for patients less than 18 years of age. Additional information may be found at [email or web address]. 96 labs today , letter, ov to fu in one month 97 Normal Range: Male: <4.98 Female: <4.45 98 labs today , letter, ov to fu in one month QUERY: @EMR Pat ID: QUERY: @EMR Req #: 99 Recent studies consider the lower limit of 32.0 ng/mL to be a threshold for optimal health. Canela BW. J Nutr. 2004;135(2):317-22. Performed at: [facility] [place] [address] [id number] [place]: Edilson Hess MD, Phone: [phone] 100 NO GROWTH: FINAL REPORT 101 Relative Risk for Future Cardiovascular Event Low <1.00 Average 1.00 - 3.00 High >3.00 Performed at: [facility] [place] [address] [id number] [place]: Edilson Hess MD, Phone: [phone] 102 Recent studies consider the lower limit of 32.0 ng/mL to be a threshold for optimal health. Canela BW. J Nutr. 2004;135(2):317-22. Performed at: [facility] [place] [address] [id number] [place]: Edilson Hess MD, Phone: [phone] 103 Note: Persistent reduction for 3 months or more in an eGFR <60 mL/min/ 1.73 m2 defines CKD. Patients with eGFR values >/=60 mL/min/1.73 m2 may also have CKD if evidence of persistent proteinuria is present. The original MDRD equation for estimated GFR is not valid for patients less than 18 years of age. Additional information may be found at [email or web address]. 104 05/31/10 LAB.RAP Deleted by [facility] 105 Note: Persistent reduction for 3 months or more in an eGFR <60 mL/min/ 1.73 m2 defines CKD. Patients with eGFR values >/=60 mL/min/1.73 m2 may also have CKD if evidence of persistent proteinuria is present. The original MDRD equation for estimated GFR is not valid for patients less than 18 years of age. Additional information may be found at [email or web address]. 106 QUERY: @EMR Pat ID: QUERY: @EMR Req #: 107 FIRST MORNING SPECIMENS GENERALLY CONTAIN THE HIGHEST CONCENTRATION OF HCG AND ARE RECOMMENDED FOR EARLY DETECTION OF . 108 NORMAL THROAT CHER 109 Specimen: [id number] - TEST: UR SPECIMEN COMMENTS: GASTRIC BIOPSY TEST: UR 110 OPERATION/PROCEDURE EGD DIAGNOSIS: PART 1: BIOPSY OF ESOPHAGUS : FRAGMENTS OF GASTRIC AND ESOPHAGEAL MUCOSA OF JUNCTIONAL ORIGIN DEMONSTRATING REACTIVE CHANGES IN A BACKGROUND INFLAMMATION CONSISTENT WITH ESOPHAGITIS, NONSPECIFIC, MILD TO MODERATE. PART 2: BIOPSY OF DUODENUM : DUODENITIS, CHRONIC, MILD, NONSPECIFIC. NIYA/jen GROSS The specimen is received in two parts. Part 1 BIOPSY OF ESOPHAGUS . The specimen is received in an appropriately labeled container. This contains two rounded resendiz colored pieces of soft tissue measuring up to 0.2 cm.; filtered and submitted in toto within a single cassette. Part 2 BIOPSY OF DUODENUM . The specimen is received in an appropriately labeled container. This contains three rounded resendiz colored pieces of soft tissue measuring up to 0.3 cm.; filtered and submitted in toto within a single cassette. WS/clf MICROSCOPIC Part 1: Specimen is composed of a mixture of fragments from the esophagus, and stomach. In one piece, there is the combination of squamous and columnar superficial epithelium consistent with junctional mucosa. The squamous component is acanthotic and demonstrates mild spongiosis with exocytosis of inflammatory cells. The glandular component demonstrates mild reactive distortion, and branching associated with varying degrees of chronic inflammation. Goblet cell metaplasia characteristic of Kelley type metaplasia is not observed. Part 2: Sections reveal fragments of duodenal mucosa, with representation of both papillary and deep glands. There is a no significantly increased inflammatory infiltrate nor an increase in interstitial fibrous thickening. Rosa glands show hyperplasia, but without superficial epithelial degeneration. The papilla are shortened and thickened. PRE OPERATIVE DIAGNOSIS Epigastric pain, nausea REVIEW CODE CODE: I ---- APURVA Jones MD 08/01/07 ---- 111 0 - 0.6 NG/ML: NO EVIDENCE OF MYOCARDIAL INJURY 0.7 - 1.5 NG/ML: MILD ELEVATION, SUGGESTING POSSIBLE MYOCARDIAL INJURY > 1.5 NG/ML: CONSISTENT WITH MYOCARDIAL INJURY 112 FIRST MORNING SPECIMENS GENERALLY CONTAIN THE HIGHEST CONCENTRATION OF HCG AND ARE RECOMMENDED FOR EARLY DETECTION OF . 113 Negative <0.9 Indeterminate 0.9 - 1.0 Positive >1.0 Procedures Date Code Description Status 10/04/2018 [id number] Mammogram Completed 07/18/2017 33685 Electrocardiogram Complete Completed 08/26/2016 [id number] Colonoscopy Completed 09/25/2015 [id number] Mammogram Completed 09/24/2014 45595 Mammography Unilateral Completed 11/14/2013 43640 Visual Screening Test Completed 08/22/2013 58574 Mammography Unilateral Completed 06/21/2013 35734 Colonoscopy Flexible Diagnostic Completed 01/22/2013 36684 Measure Blood Oxygen Level Single Determination Completed 06/02/2012 77634 Mammography Unilateral Completed 03/18/2012 89859 Mammography Unilateral Completed 05/28/2011 33190 Mammography Unilateral Completed 05/10/2011 22608 Electrocardiogram Complete Completed 09/22/2010 41289 Bone Density Study, Single Photon Absorptiometry Completed 09/22/2010 419265870 Bone Mineral Density Test Completed 06/16/2010 96066 Electrocardiogram Complete Completed 08/14/2009 10497 Colonoscopy Flexible Diagnostic Completed Encounters Type Date Location Provider Dx Diagnosis Office Visit 05/12/2018 [facility] Prosper, R10.84 Generalized abdominal 10:30a Sejal, BAR PORTER pain G43.009 Migraine w/o aura, not intractable, w/o status migrainosus Z68.28 Body mass index (BMI) 28.0-28.9, adult Office Visit 04/18/2018 8:30a [facility] Nikolas Chengia, E78.2 Mixed hyperlipidemia BAR PORTER K21.9 Gastro-esophageal reflux disease without esophagitis J30.9 Allergic rhinitis, unspecified K31.84 Gastroparesis N39.46 Mixed incontinence L71.9 Rosacea, unspecified M15.0 Primary generalized (osteo)arthritis K58.0 Irritable bowel syndrome with diarrhea R20.8 Other disturbances of skin sensation G43.009 Migraine w/o aura, not intractable, w/o status migrainosus K57.92 Dvtrcli of intest, part unsp, 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 abscess w/o bleed M54.5 Low back pain K22.70 Kelley's esophagus without dysplasia R73.01 Impaired fasting glucose G47.33 Obstructive sleep apnea (adult) (pediatric) D64.9 Anemia, unspecified Z68.29 Body mass index (BMI) 29.0-29.9, adult Office Visit 03/21/2018 11:30a [facility] [place], N39.46 Mixed incontinence Sejal, BAR PORTER Office Visit 11/21/2017 2:30p [facility] [place], Z01.818 Encounter for other Sejal, BAR PORTER preprocedural examination H26.9 Unspecified cataract K21.9 Gastro-esophageal reflux disease without esophagitis E78.2 Mixed hyperlipidemia J30.9 Allergic rhinitis, unspecified K31.84 Gastroparesis L71.9 Rosacea, unspecified M15.0 Primary generalized (osteo)arthritis K58.0 Irritable bowel syndrome with diarrhea N39.3 Stress incontinence (female) (male) R20.8 Other disturbances of skin sensation G43.009 Migraine w/o aura, not intractable, w/o status migrainosus K57.92 Dvtrcli of intest, part unsp, 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9 Anemia, unspecified D47.3 Essential (hemorrhagic) thrombocythemia N95.1 Menopausal and female climacteric states Z68.25 Body mass index (BMI) 25.0-25.9, adult Office Visit 08/26/2017 1:45p [facility] Sejal Cheng, BAR PORTER R42 Dizziness and giddiness D64.9 Anemia, unspecified R11.0 Nausea D69.6 Thrombocytopenia, unspecified Office Visit 08/12/2017 10:45a [facility] Sejal Cheng, BAR PORTER R11.0 Nausea D64.9 Anemia, unspecified M25.561 Pain in RIGHT knee Office Visit 07/18/2017 2:00p [facility] [place], Z01.818 Encounter for other Sejal, BAR PORTER preprocedural examination M15.0 Primary generalized (osteo)arthritis K21.9 Gastro-esophageal reflux disease without esophagitis K58.0 Irritable bowel syndrome with diarrhea J30.9 Allergic rhinitis, unspecified K31.84 Gastroparesis L71.9 Rosacea, unspecified N39.3 Stress incontinence (female) (male) R20.8 Other disturbances of skin sensation M54.5 Low back pain G43.009 Migraine w/o aura, not intractable, w/o status migrainosus Z68.25 Body mass index (BMI) 25.0-25.9, adult Office Visit 04/08/2017 3:15p [facility] Mable Morton PA R10.84 Generalized abdominal pain Office Visit 01/12/2017 11:00a [facility] [place] N39.3 Stress incontinence ANGI Post (female) (male) L71.9 Rosacea, unspecified K31.84 Gastroparesis J30.9 Allergic rhinitis, unspecified M25.50 Pain in unspecified joint M15.0 Primary generalized (osteo)arthritis K58.0 Irritable bowel syndrome with diarrhea K21.9 Gastro-esophageal reflux disease without esophagitis R20.8 Other disturbances of skin sensation M54.5 Low back pain K57.92 Dvtrcli of intest, part unsp, w/o perf or abscess w/o bleed Z68.25 Body mass index (BMI) 25.0-25.9, adult Office Visit 07/05/2016 10:00a [facility] Sejal Cheng NP K57.92 Dvtrcli of intest, part unsp, w/o perf or abscess w/o bleed M54.5 Low back pain R20.8 Other disturbances of skin sensation K21.9 Gastro-esophageal reflux disease without esophagitis K58.0 Irritable bowel syndrome with diarrhea M15.0 Primary generalized (osteo)arthritis M25.50 Pain in unspecified joint J30.9 Allergic rhinitis, unspecified K31.84 Gastroparesis L71.9 Rosacea, unspecified N39.3 Stress incontinence (female) (male) Z68.27 Body mass index (BMI) 27.0-27.9, adult Office Visit 06/10/2015 4:00p [facility] Lizbet Wild MD 238.1 Neoplasm Uncertain Connective & Other Soft Tissue 782.0 Skin Sensation Disturbance Office Visit 11/11/2014 10:45a [facility] Lizbet Wild MD 722.73 Intervertebral Disc Disorder Lumbar W/ Myelopathy 789.07 Pain Abdominal Generalized Plan of Treatment Future Appointment(s):05/21/2019 2:00 pm - Sejal Cheng NP at [facility]11/14 - Sejal Cheng NPE78.2 Mixed hyperlipidemiaComments:Will continue to follow annuallyLimit fat and cholesterol in diet and increase weight bearing exercise to level of cunqwlmU58.9 Allergic rhinitis, unspecifiedComments:Continue current tx Uses eye drops from Dr. Munroe's office and OTC nasal sprayFollow up:Please get most recent pap result from Dr. Barraza's office 6 months for recheck, 30'M15.0 Primary generalized (osteo) arthritisComments:Continue current txN39.46 Mixed incontinenceComments:Continue current dose of BscnfizxV40.9 Vitamin D deficiency, unspecifiedComments:Will recheck level with next labsL71.9 Rosacea, unspecifiedComments:Continue current rupiwjlimI57.84 GastroparesisComments:Continue bid Omeprazole and follow as scheduled with Dr. PerezK58.0 Irritable bowel syndrome with diarrheaComments: Continue current medsK22.70 Kelley's esophagus without dysplasiaComments: Continue current dose of Omeprazole Will check Magnesium cghvmrruH85.9 Gastro- esophageal reflux disease without esophagitisComments:Continue Omeprazole bidK51.90 Ulcerative colitis, unspecified, without yzfjxswjfvhdhH30.06 Intervertebral disc disorders with myelopathy, lumbar regionComments: Considering use of CBD oilG50.0 Trigeminal ehozpaewwC43.2 Neoplasm of unspecified behavior of bone, soft tissue, and sComments:Monitor and report change in size or cvwwryjsdterwxaX04.29 Body mass index (BMI) 29.0-29.9, adultComments:Encouraged well balanced healthy diet with portion control.Encouraged increased exercise.
[2018-12-08 15:54] VITALS: BP 138/59
--- NOTE | 2018-12-08 16:34 | ED ---
Throat Pain/Nasal Congestion - HPI Summary HPI Summary: 63 yr old female with the complaint of runny nose post nasal drip, cough, hoarse voice, ear pain. Onset of symptoms five days ago. She states the cough is very annoying. she has developed laryngitis. She has left ear pain. Denies fever. Denies drooling. No SOB> - History of Current Complaint Chief Complaint: UCRespiratory Time Seen by Provider: 12/08/18 16:09 - Allergies/Home Medications Allergies/Adverse Reactions: Allergies Allergy/AdvReac Type Severity Reaction Status Date / Time codeine Allergy Nausea And Verified 12/08/18 15:47 Vomiting Home Medications: Home Medications Folic Acid TAB* [Folvite TAB*] 1 tab DAILY 12/08/18 [History Confirmed 12/08/18] Methotrexate TAB* 3 tab BID 12/08/18 [History Confirmed 12/08/18] PMH/Surg Hx/FS Hx/Imm Hx Endocrine/Hematology History: Denies: Hx Diabetes, Hx Anemia Cardiovascular History: Denies: Hx Hypertension, Hx Pacemaker/ICD Respiratory History: Reports: Hx Sleep Apnea - DOES NOT USE CPAP GI History: Reports: Hx Gastroesophageal Reflux Disease - CONTROL WITH MEDS, Hx Irritable Bowel, Other GI Disorders - HX OF DIVERTICULITIS, LAST FLARE UP 05/12, SEE COMMENT BELOW History: Reports: Other Problems/Disorders - MILD STRESS INCONTINENCE, BLADDER SLING HAS HELPED Denies: Hx Renal Disease Musculoskeletal History: Reports: Hx Arthritis - ALL JOINTS, Hx Bursitis - RIGHT SHOULDER, Other Musculoskeletal History - LOWER BACK Sensory History: Reports: Hx Contacts or Glasses - GLASSES Denies: Hx Hearing Aid Opthamlomology History: Reports: Hx Contacts or Glasses - GLASSES Neurological History: Reports: Hx Headaches, Hx Migraine, Other Neuro Impairments/Disorders - 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 MENISCUS SURGERY RIGHT KNEE [facility] 10/2016. BLADDER SLING. [facility]. COLON RESECTION, [facility]. LAPAROSCOPIC GALL BLADDER REMOVAL, [facility]. ARTHROSCOPY LEFT KNEE , [place]. CERVICAL SURGERY - SEWN CERVIX DURING PREG. AGE 10 , EXCISION OF CYST FROM LEFT KNEE, Hx Anesthesia Reactions: No Infectious Disease History: No Infectious Disease History: Denies: History Other Infectious Disease, Traveled Outside the [place] in Last 30 Days - Family History Known Family History: Positive: Hypertension - Social History Occupation: Employed Full-time Alcohol Use: Occasionally Alcohol Amount: 5-7 DRINKS/WEEK Substance Use Type: Reports: None Smoking Status (MU): Former Smoker Type: Cigarettes Amount Used/How Often: 1 PPD FOR ABOUT 20 YEARS Length of Time of Smoking/Using Tobacco: 20 YRS Have You Smoked in the Last Year: No Review of Systems Constitutional: Negative Positive: Sore Throat, Ear Ache, Nasal Discharge Positive: Cough All Other Systems Reviewed And Are Negative: Yes Physical Exam Triage Information Reviewed: Yes Vital Signs On Initial Exam: Initial Vitals Temp Pulse Resp BP Pulse Ox 98.3 F 85 16 138/59 100 12/08/18 15:50 12/08/18 15:50 12/08/18 15:50 12/08/18 15:50 12/08/18 15:50 Vital Signs Reviewed: Yes Appearance: Positive: Well-Appearing, No Pain Distress Skin: Positive: Warm, Skin Color Reflects Adequate Perfusion Head/Face: Positive: Normal Head/Face Inspection Eyes: Positive: EOMI ENT: Positive: Pharyngeal erythema, Nasal congestion, Nasal drainage, TM red - left, Sinus tenderness Neck: Positive: Nontender Respiratory/Lung Sounds: Positive: Clear to Auscultation, Breath Sounds Present Cardiovascular: Positive: RRR. Negative: Murmur Abdomen Description: Negative: Distended Musculoskeletal: Positive: Strength/ROM Intact Neurological: Positive: Sensory/Motor Intact, Alert, Oriented to Person Place, Time, CN Intact II-III, Normal Gait, Speech Normal Psychiatric: Positive: Normal - Omer Coma Scale Best Eye Response: 4 - Spontaneous Best Motor Response: 6 - Obeys Commands Best Verbal Response: 5 - Oriented Coma Scale Total: 15 Diagnostics - Vital Signs Vital Signs Temp Pulse Resp BP Pulse Ox 12/08/18 15:50 98.3 F 85 16 138/59 100 - Laboratory Lab Statement: Any lab studies that have been ordered have been reviewed, and results considered in the medical decision making process. EENT Course/Dx - Course Course Of Treatment: 63 yr old with laryngotracheobronchitis, and left OM. Rx with z pack, and steroids, tessalon, albuterol MDI. - Diagnoses Provider Diagnoses: Otitis media, Laryngotracheobronchitis, Hypertension Discharge - Sign-Out/Discharge Documenting (check all that apply): Patient Departure All imaging exams completed and their final reports reviewed: No Studies - Discharge Plan Condition: Good Disposition: HOME Prescriptions: Albuterol HFA INHALER* [Ventolin HFA Inhaler*] 1 - 2 puff INH Q4H PRN #1 mdi PRN Reason: Cough Azithromycin TAB* [Zithromax TAB (Z-HIMA) 250 mg #6 tabs] 2 tab PO .TODAY, THEN 1 DAILY #1 hima Benzonatate CAP* [Tessalon 100 MG CAP*] 100 mg PO TID #14 cap predniSONE [Prednisone 20 MG TAB] 40 mg PO DAILY #8 tablet Patient Education Materials: Ear Infection (ED), Croup in Adults (ED), Hypertension (ED) Referrals: Sejal Cheng [Primary Care Provider] - 3 Days - Billing Disposition and Condition Condition: GOOD Disposition: Home
== END 2018-12-08 16:43 | disposition home or self-care (01) ==
LOC: UCCORT 15:38
DX: J40 Bronchitis, not specified as acute or chronic (principal); I10 Essential (primary) hypertension; H66.92 Otitis media, unspecified, left ear; K21.9 Gastro-esophageal reflux disease without esophagitis; Z88.5 Allergy status to narcotic agent; Z87.891 Personal history of nicotine dependence
CPT/HCPCS: 99212; G0463

== ENCOUNTER 2019-06-22 15:19 | Emergency (ER) | payer BC ==
--- OUTSIDE RECORDS SUMMARY | 2019-06-22 15:36 | XMS REPORT | Continuity of Care Document ---
:1955 External Reference #:[id number] Author Name Sejal Cheng NP Address [address] [place] [id number] Care Team Providers Name Role Phone Dayan Barraza MD - Obstetrics & Care Team Information Program Production Specialist [phone] - Adult Care Team Information Program Production Specialist [phone] Reconstructive Orthopaedic Surgery Maximino Toure MD Care Team Information Program Production Specialist [phone] Matt Ellsworth MD - Care Team Information Program Production Specialist Rheumatology Beto Ruiz MD - Dermatology Care Team Information Program Production Specialist [phone] Gonzales Perez - Gastroenterology Care Team Information Program Production Specialist [phone] [facility] - Pain Care Team Information Program Production Specialist Medicine Problems Active Problems Provider Date Degenerative joint disease involving Lizbet Wild MD Onset: 03/01/2013 multiple joints Intervertebral disc disorder of lumbar Lizbet Wild MD Onset: 05/10/2011 region with myelopathy Vitamin D deficiency Lizbet Wild MD Onset: 06/30/2010 Gastroesophageal reflux disease Lizbet Wild MD Onset: 06/16/2010 Irritable bowel syndrome with diarrhea Sejal Cheng NP Onset: 2016 Allergic rhinitis Sejal Cheng NP Onset: 07/18/2017 Gastroparesis syndrome Sejal Cheng NP Onset: 07/18/2017 Rosacea Sejal Cheng NP Onset: 07/18/2017 Mixed urinary incontinence Digiovanna, Sejal, [employer] Onset: 03/21/2018 Kelley's esophagus Digiovanna, Sejal, [facility] [employer] Onset: 04/18/2018 Mixed hyperlipidemia Digiovanna, Sejal, [facility] [employer] [facility] Onset: 11/14/2018 Trigeminal neuralgia Digiovanna, Sejal, [facility] [employer] [facility] Onset: 11/14/2018 Ulcerative colitis Digiovanna, Sejal, [facility] [employer] [facility] Onset: 11/14/2018 Social History Type Date Description Comments Sex Unknown ETOH Use Occasionally consumes alcohol Tobacco Use Start: Unknown End: Patient is a former smoker quit 2003 Unknown Recreational Drug Use Denies Drug Use Smoking Status Reviewed: 07/18/17 Patient is a former smoker quit 2003 Allergies, Adverse Reactions, Alerts Active Allergies Reaction Severity Comments Date Codeine 05/28/2013 Dogs 01/12/2017 Environmental Watery eyes 01/12/2017 Inactive Allergies NKDA 06/10/2015 Medications Active Medications SIG Qnty Indications Ordering Provider Date Solifenacin Succinate take one tablet 90tabs N39.46 Digiovanwilver, 02/23/2019 by mouth every Sejal, [facility] [employer] [facility] 10mg Tablets day Lyrica 1 po bid G50.0 King 50mg Capsules MD Maximino Dicyclomine HCL 1 by mouth twice K58.0 Syam,Biswarup 10mg a day as needed Capsules K31.84 Mesalamine 2 by mouth every day K58.0 Syam,Biswarup 1.2gm Tablets K31.84 Humira Pen every other week M15.0 Theodore Robles , 40mg/0.4ML PNKT Matt MELARA Carbamazepine 1 po tid R20.8 Maximino Toure MD 200mg Tablets G50.0 Methotrexate Sodium Take 6 Tablets By M15.0 Theodore Robles , 2.5mg Tablets Mouth Every 7 Days Matt MELARA Folic Acid 1 by mouth every day M15.0 Theodore Robles , 1mg Tablets Matt MELARA Omeprazole 1 by mouth bid K21.9 Syam,Biswarup 40mg Capsules K58.0 K31.84 Celecoxib 1 by mouth twice 180caps M54.5 DigiovannaNikolasia, 200mg every day take [employer] [employer] [facility] Capsules with food M15.0 M25.50 Glucosamine Chondroitin 1500 1 po qd M54.5 [facility] 1500Com Capsules M15.0 M25.50 Solodyn prn Rocacea L71.9 Beto Ruiz MD 115mg Tablets ER 24HR Acetaminophen 2 PO Q 4 Hours prn M54.5 [facility] 325mg Tablets Center M15.0 M25.50 History Medications CBD Oil qd Angel Luis Brush, 12/13/2018 - DO 02/02/2019 Tumeric qd Angel Luis Brush, 12/13/2018 - DO 02/02/2019 Doxycycline Hyclate 1 tablet by mouth 20tabs Angel Luis Romero, 2018 - twice daily for DO 12/23/2018 100mg Tablets 10 days Prednisone 4 tablets by 21tabs Angel Luis Amin, 12/13/2018 - 10mg Tablets mouth x 2 days, DO 12/19/2018 then 3 tablets x 2 days, then 2 tablets x 2 days, then 1 tablet until finished Immunizations CPT Code Status Date Vaccine Reaction Lot # [id number] Given 03/04/2018 Tdap (Adacel) Ages 7 And Given at [facility] Above Only 73930 Given 03/13/2012 Tdap (Adacel) Ages 7 And Above Only 13705 Given 09/26/1998 Tetanus And Diptheria Toxoids For Adult Use-preservative free Q2039 Refused 11/14/2018 Flu Vaccine NOS Pt says she does not get flu shots. FRANKLYN ROLON 11/14/18 Q2039 Refused 04/18/2018 Flu Vaccine NOS Vital Signs Date Vital Result Comment 05/04/2019 1:06pm Weight 176.50 lb Heart Rate 84 /min BP Systolic 122 mmHg BP Diastolic 74 mmHg Respiratory Rate 18 /min Height 66 inches 5'6" 04/18/18 BMI (Body Mass Index) 28.5 kg/m2 12/13/2018 2:52pm Body Temperature 98.5 F Weight 182.00 lb Heart Rate 80 /min BP Systolic 144 mmHg BP Diastolic 72 mmHg Respiratory Rate 18 /min Height 66 inches 5'6" 04/18/18 O2 % BldC Oximetry 99 % BMI (Body Mass Index) 29.4 kg/m2 Results Description No Information Available Procedures Date Code Description Status 12/13/2018 23183 Measure Blood Oxygen Level Single Determination Completed 10/04/2018 [id number] Mammogram Completed 08/26/2016 [id number] Colonoscopy Completed 09/25/2015 [id number] Mammogram Completed 09/22/2010 [id number] Bone Mineral Density Test Completed Medical Devices Description No Information Available Encounters Type Date Location Provider Dx Diagnosis Office Visit 12/13/2018 2:30p [facility] Mable Morton PA R05 Cough Z68.29 Body mass index (BMI) 29.0-29.9, adult Office Visit 11/14/2018 8:00a [facility] Digiovanna, Sejal, E78.2 Mixed hyperlipidemia [employer] [employer] J30.9 Allergic rhinitis, unspecified M15.0 Primary generalized (osteo)arthritis N39.46 Mixed incontinence E55.9 Vitamin D deficiency, unspecified L71.9 Rosacea, unspecified K31.84 Gastroparesis K58.0 Irritable bowel syndrome with diarrhea K22.70 Kelley's esophagus without dysplasia K21.9 Gastro-esophageal reflux disease without esophagitis K51.90 Ulcerative colitis, unspecified, without complications M51.06 Intervertebral disc disorders with myelopathy, lumbar region G50.0 Trigeminal neuralgia D49.2 Neoplasm of unsp behavior of bone, soft tissue, and skin Z68.29 Body mass index (BMI) 29.0-29.9, adult Assessments Date Code Description Provider 05/04/2019 E78.2 Mixed hyperlipidemia Digiovanna, Sejal, [employer] [employer] 05/04/2019 J30.9 Allergic rhinitis, unspecified Digiovanna, Sejal, [employer] 05/04/2019 M15.0 Primary generalized (osteo)arthritis Digiovanna, Sejal, [employer] [employer] 05/04/2019 N39.46 Mixed incontinence Digiovanna, Sejal, [employer] [employer] 05/04/2019 E55.9 Vitamin D deficiency, unspecified Digiovanna, Sejal, [employer] [employer] 05/04/2019 L71.9 Rosacea, unspecified Digiovanna, Sejal, [employer] [employer] 05/04/2019 K31.84 Gastroparesis Digiovanna, Sejal, [employer] [employer] 05/04/2019 K58.0 Irritable bowel syndrome with diarrhea Digiovanna, Sejal , [employer] 05/04/2019 K22.70 Kelley's esophagus without dysplasia Digiovanna, Sejal , [employer] 05/04/2019 K21.9 Gastro-esophageal reflux disease without Digiovanna, Sejal, [employer] esophagitis 05/04/2019 K51.90 Ulcerative colitis, unspecified, without Digiovanna, Sejal, [employer] [employer] complications 05/04/2019 M51.06 Intervertebral disc disorders with Digiovanna, Sejal, [employer] myelopathy, lumbar region 05/04/2019 G50.0 Trigeminal neuralgia Digiovanna, Sejal, [employer] [employer] 05/04/2019 Z13.31 Encounter for screening for depression Digiovanna, Sejal, [employer] [employer] 05/04/2019 Z12.31 Encounter for screening mammogram for Digiovanna, Sejal , [employer] [employer] malignant neoplasm of breast 05/04/2019 Z68.28 Body mass index (BMI) 28.0-28.9, adult Digiovanna, Sejal, [employer] 12/13/2018 R05 Cough Mable Morton PA 12/13/2018 Z68.29 Body mass index (BMI) 29.0-29.9, adult Mable Morton PA 11/14/2018 E78.2 Mixed hyperlipidemia Digiovanna, Sejal, [employer] 11/14/2018 J30.9 Allergic rhinitis, unspecified Digiovanna, Sejal, [employer] [employer] 11/14/2018 M15.0 Primary generalized (osteo)arthritis Digiovanna, Sejal, [employer] [employer] 11/14/2018 N39.46 Mixed incontinence Digiovanna, Sejal, [employer] [employer] 11/14/2018 E55.9 Vitamin D deficiency, unspecified Digiovanna, Sejal, [employer] [employer] 11/14/2018 L71.9 Rosacea, unspecified Digiovanna, Sejal, [employer] [employer] 11/14/2018 K31.84 Gastroparesis Digiovanna, Sejal, [employer] [employer] 11/14/2018 K58.0 Irritable bowel syndrome with diarrhea Digiovanna, Sejal , [employer] 11/14/2018 K22.70 Kelley's esophagus without dysplasia Digiovanna, Sejal , [employer] 11/14/2018 K21.9 Gastro-esophageal reflux disease without Nikolas Chengia, [employer] [employer] esophagitis 11/14/2018 K51.90 Ulcerative colitis, unspecified, without DigiovannaArgeliaSejal, [employer] [employer] complications 11/14/2018 M51.06 Intervertebral disc disorders with Sejal Cheng, [employer] [employer] myelopathy, lumbar region 11/14/2018 G50.0 Trigeminal neuralgia Sejal Cheng, [employer] [employer] 11/14/2018 D49.2 Neoplasm of unspecified behavior of bone, Sejal Cheng, ANGI soft tissue, and s 11/14/2018 Z68.29 Body mass index (BMI) 29.0-29.9, adult Sejal Cheng NP Plan of Treatment Future Appointment(s):11/16/2019 3:30 pm - Karlene Cota NP at [facility]05/04/2019 - Sejal Cheng NPE78.2 Mixed hyperlipidemiaNew Labs:Lipid, Scheduled: 10/25/19Basic (BMP), Scheduled: 10/25/19Comments:Will continue to follow annuallyLimit fat and cholesterol in diet and increase weight bearing exercise to level of abilityFollow up:6 months for routine f/u, 30', labs prior to OV( has order, will have done with rheumatology labs) (Chyna)J30.9 Allergic rhinitis , unspecifiedComments:Continue current tx Uses eye drops from Dr. Munroe' s office and OTC nasal xedajA68.0 Primary generalized (osteo)arthritisComments: Continue current txN39.46 Mixed incontinenceComments:Continue current dose of KgmckbvfP28.9 Vitamin D deficiency, unspecifiedComments:Will continue to ihlkobM38.9 Rosacea, unspecifiedComments:Continue current lvvnrjtluU57.84 GastroparesisComments:Continue bid Omeprazole and follow as scheduled with Dr. PerezK58.0 Irritable bowel syndrome with diarrheaComments:Continue current medsK22.70 Kelley's esophagus without dysplasiaComments:Continue current dose of Omeprazole Will check Magnesium pfypirtfV46.9 Gastro-esophageal reflux disease without esophagitisComments:Continue Omeprazole bidK51.90 Ulcerative colitis, unspecified, without qxsuohpsfhaddT28.06 Intervertebral disc disorders with myelopathy, lumbar regionComments:Considering use of CBD oilG50.0 Trigeminal neuralgiaComments:Continue current utorjckacV02.31 Encounter for screening for sdqskaqglmT86.31 Encounter for screening mammogram for malignant neoplasm of breastNew Xrays:Ultrasound Breast Unilateral Realtime Comp W/Image Inc Axil, Ordered: 05/04/19Mammogram Screening, Bilateral Incl CAD When Performe , Ordered: 05/04/19Z68.28 Body mass index (BMI) 28.0-28.9, adultComments: Continue routine exercise.Well balanced healthy diet with portion control. Functional Status Description No Information Available Mental Status Description No Information Available Referrals Description No Information Available
[2019-06-22 15:51] VITALS: BP 140/71
--- NOTE | 2019-06-22 16:10 | UC ---
Throat Pain/Nasal Tho HPI - HPI Summary HPI Summary: Pt presents with c/o bilateral ear pain and ST X 5 days. Pt states that she has felt "chilled" but unsure if she has had a fever. Pt also c/o on pruritic rash to bilateral forearms. Non blister forming, non blancheable. - History of Current Complaint Chief Complaint: UCGeneralIllness Stated Complaint: SORE THROAT/EARPAIN Time Seen by Provider: 06/22/19 15:37 Hx Obtained From: Patient Hx Last Menstrual Period: n/a ?: No Onset/Duration: Gradual Onset, Lasting Days - 5, Still Present Severity: Moderate Pain Intensity: 7 Cough: None Associated Signs & Symptoms: Positive: Dysphagia - Epiglottits Risk Factors Epiglottis Risk Factors: Negative - Allergies/Home Medications Allergies/Adverse Reactions: Allergies Allergy/AdvReac Type Severity Reaction Status Date / Time codeine Allergy Nausea And Verified 06/22/19 15:35 Vomiting Home Medications: Home Medications Adalimumab (NF) [Humira Pen (NF)] 40 mg SC 06/22/19 [History] Black Cohosh 1 tab PO DAILY 06/22/19 [History Confirmed 06/22/19] Dicyclomine CAP* [Bentyl CAP*] 10 mg PO BID 06/22/19 [History Confirmed 06/22/19 ] Mesalamine (NF) [Lialda (NF)] 1.2 gm PO BID 06/22/19 [History Confirmed 06/22/19 ] Pregabalin CAP(*) [Lyrica CAP(*)] 50 mg PO BID 06/22/19 [History Confirmed 06/22] PMH/Surg Hx/FS Hx/Imm Hx Previously Healthy: Yes - Surgical History Surgical History: Yes Surgery Procedure, Year, and Place: RIGHT TOTAL KNEE REPLACEMENT 07/2017. HEMORRHOIDECTOMY, [facility]. MENISCUS SURGERY RIGHT KNEE [facility] 10/2016. BLADDER SLING. [facility]. COLON RESECTION, [facility]. LAPAROSCOPIC GALLBLADDER REMOVAL, [facility]. ARTHROSCOPY LEFT KNEE , [place]. CERVICAL SURGERY - SEWN CERVIX DURING PREG. AGE 10 , EXCISION OF CYST FROM LEFT KNEE, - Family History Known Family History: Positive: Hypertension - Social History Occupation: Employed Full-time Alcohol Use: Occasionally Alcohol Amount: 5-7 DRINKS/WEEK Substance Use Type: None Smoking Status (MU): Former Smoker Type: Cigarettes Amount Used/How Often: 1 PPD FOR ABOUT 20 YEARS Length of Time of Smoking/Using Tobacco: 20 YRS Have You Smoked in the Last Year: No When Did the Patient Quit Smoking/Using Tobacco: 2004 - Immunization History Most Recent Influenza Vaccination: NONE Most Recent Pneumonia Vaccination: NONE Review of Systems All Other Systems Reviewed And Are Negative: Yes Constitutional: Positive: Chills, Fatigue Skin: Positive: Negative Eyes: Positive: Negative ENT: Positive: Sore Throat, Ear Ache Respiratory: Positive: Negative Cardiovascular: Positive: Negative Gastrointestinal: Positive: Negative Genitourinary: Positive: Negative Motor: Positive: Negative Neurovascular: Positive: Negative Musculoskeletal: Positive: Myalgia Neurological: Positive: Headache Psychological: Positive: Negative Is Patient Immunocompromised?: No Physical Exam Triage Information Reviewed: Yes Appearance: Well-Appearing Vital Signs: Initial Vital Signs Temp 98.4 F 06/22/19 15:41 Pulse 70 06/22/19 15:41 Resp 18 06/22/19 15:41 BP 140/71 06/22/19 15:41 Pulse Ox 97 06/22/19 15:41 Vital Signs Reviewed: Yes Eye Exam: Normal ENT: Positive: TM bulging - bilateral Dental Exam: Normal Neck exam: Normal Respiratory Exam: Normal Cardiovascular Exam: Normal Musculoskeletal Exam: Normal Neurological Exam: Normal Psychological Exam: Normal Skin: Positive: Rashes - flat, non blanchable circular area on right mid anterior forearm, petechiae like rash on left lateral mid forearm. Throat Pain/Nasal Course/Dx - Differential Dx/Diagnosis Differential Diagnosis/HQI/PQRI: Tonsillitis, URI Provider Diagnosis: Viral syndrome, Rash in adult Discharge ED - Sign-Out/Discharge Documenting (check all that apply): Patient Departure All imaging exams completed and their final reports reviewed: No Studies - Discharge Plan Condition: Stable Disposition: HOME Patient Education Materials: Acute Rash (ED), Viral Syndrome (ED) Referrals: Sejal Cheng [Primary Care Provider] - If Needed Additional Instructions: Please follow up with your PCP and your Residential Electrician as needed. - Billing Disposition and Condition Condition: STABLE Disposition: Home
[2019-06-23 15:28] LABS: ABS Basophils 0.1 10^3/ul (0-0.2); ABS Eosinophils 0.1 10^3/ul (0-0.6); ABS Lymphocytes 1.6 10^3/ul (1.0-4.8); ABS Monocytes 0.7 10^3/ul (0-0.8); ABS Neutrophils 4.1 10^3/ul (1.5-7.7); Eosinophil % 1.7 %; Hematocrit 35 % (35-47); Hemoglobin 12.2 g/dL (12.0-16.0); Lymphocyte % 24.2 %; Mean Corpuscular HGB Conc 35 g/dL (31-36); Mean Corpuscular Hemoglobin 32 pg (27-31); Mean Corpuscular Volume 93 fL (80-97); Mean Platelet Volume 7.8 fL (7.4-10.4); Nucleated Red Blood Cells % 0.1; Platelet Count 316 10^3/uL (150-450); Red Blood Count 3.79 10^6 /uL (3.70-4.87); Red Cell Distribution Width 15 % (10-15); White Blood Count 6.5 10^3/uL (3.5-10.8)
== END 2019-06-22 16:37 | disposition home or self-care (01) ==
LOC: UCCORT 15:19
DX: B34.9 Viral infection, unspecified (principal); R21 Rash and other nonspecific skin eruption; Z88.5 Allergy status to narcotic agent; Z87.891 Personal history of nicotine dependence
CPT/HCPCS: 36415; 85025; 87651; 99211; G0463

== ENCOUNTER 2019-09-09 12:45 | Emergency (ER) | payer BC ==
--- OUTSIDE RECORDS SUMMARY | 2019-09-09 12:50 | XMS REPORT | Continuity of Care Document ---
:1955 External Reference #:[id number] Author Name Maximino Toure M.D. 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 Onset: 05/25/2017 Chronic migraine without aura Maximino Toure M.D. Onset: 05/25/2017 Arthroplasty of knee Belgica Gomez M.D. Onset: 01/30/2018 Social History Type Date Description Comments Sex Unknown ETOH Use consumes 2-3 glasses of wine per week Tobacco Use Start: Unknown End: Patient is a former smoker Unknown Recreational Drug Use Denies Drug Use Smoking Status Reviewed: 08/22/19 Patient is a former smoker Exercise Type/Frequency Exercises regularly Allergies, Adverse Reactions, Alerts Active Allergies Reaction Severity Comments Date Codeine vomiting 07/01/2016 Seasonal 06/21/2017 Medications Active Medications SIG Qnty Indications Ordering Date Provider Lyrica 1 by mouth bid 60caps Orlando Haddad, 04/27/2019 50mg Capsules N.P. Carbamazepine 1 tablet twice a 180tabs G50.0 Orlando Haddad, 01/10/2019 200mg day N.P. Tablets Omeprazole 1 po bid 90caps Unknown 40mg Capsules Solodyn 1 by mouth as Unknown 115mg Tablets ER needed 24HR Celebrex 1 by mouth PO Unknown 200mg Capsules Once Daily Glucosamine 1 by mouth bid Unknown Chondroitin 1500 Complex Maximum Strength 1500Com Capsules Tylenol 2 po prn Unknown 500mg Tylenol PM 1 po prn sleep Unknown Tablets Folic Acid Take One Tablet Unknown 1mg Tablets By Mouth Every Day Methotrexate Sodium Take 6 Tablets Unknown 2.5mg By Mouth Every 7 Tablets Days Melatonin 1 tablets at bed Unknown 5mg Capsules time as needed Vesicare 1 by mouth every Unknown 10mg Tablets day Humira Pen every two weeks Theodore, 40mg/0.4ML MD Matt PNKT Eql Fiber Laxative 1 tab by mouth Unknown 625mg daily Tablets Mesalamine 1 tab by mouth 120tabs Unknown 1.2gm Tablets twice a day Dicyclomine HCL 1 cap by mouth Unknown 10mg twice a day Capsules Medications Administered in Office Medication SIG Qnty Indications Ordering Provider Date Synvisc Or Synvisc-One Jason Horan MD 06/21/2017 Injection 1 MG Injection Synvisc Or Synvisc-One Jason Horan MD 06/14/2017 Injection 1 MG Injection Synvisc Or Synvisc-One Jason Horan MD 06/07/2017 Injection 1 MG Injection Celestone 3 mg and 3mg Jason Horan MD 03/22/2017 Injection Triamcinolone (Kenalog) Danita Suarez MD 12/31/2016 Injection Depomedrol 40MG Jason Horan MD 09/22/2016 Injection Depomedrol 40MG Jason Horan MD 07/01/2016 Injection Depomedrol 40MG Ping Lozano M.D. 04/21/2016 Injection Depomedrol 40MG Danita Suarez MD 10/31/2015 Injection Depomedrol 80MG Ping Lozano M.D. 03/27/2014 Injection Depomedrol 80MG Ping Lozano M.D. 12/19/2013 Injection Immunizations Description No Information Available Vital Signs Date Vital Result Comment 08/22/2019 3:23pm Height 66 inches 5'6" Weight 179.00 lb Heart Rate 70 /min BP Systolic 132 mmHg BP Diastolic 62 mmHg BMI (Body Mass Index) 28.9 kg/m2 04/11/2019 1:02pm Height 66 inches 5'6" Weight 180.00 lb Heart Rate 84 /min BP Systolic 112 mmHg BP Diastolic 72 mmHg BMI (Body Mass Index) 29.0 kg/m2 Results Description No Information Available Procedures Description No Information Available Medical Devices Description No Information Available Encounters Type Date Location Provider Dx Diagnosis Office Visit 08/22/2019 [place] Maximino Toure G50.0 Trigeminal 3:30p [facility] Office Visit 07/25/2019 [facility] Dermatology AT Mumtaz Terrazas MD D22.5 Melanocytic nevi 3:30p [place] of trunk L82.1 Other seborrheic keratosis L29.8 Other pruritus D69.2 Other nonthrombocytopenic purpura Office Visit 04/11/2019 [facility] Orlando G50.0 Trigeminal 1:00p [facility] Assessments Date Code Description Provider 08/22/2019 G50.0 Trigeminal neuralgia Maximino Toure M.D. 07/25/2019 D22.5 Melanocytic nevi of trunk Mumtaz Terrazas MD 07/25/2019 L82.1 Other seborrheic keratosis Mumtaz Terrazas MD 07/25/2019 L29.8 Other pruritus Mumtaz Terrazas MD 07/25/2019 D69.2 Other nonthrombocytopenic purpura Mumtaz Terrazas MD 04/11/2019 G50.0 Trigeminal neuralgia Orlando Haddad, N.P. Plan of Treatment Future Appointment(s):02/20/2020 3:45 pm - Maximino Toure M.D. at [facility]08/22/2019 - Maximino Toure M.D.G50.0 Trigeminal neuralgiaFollow up:Follow up in 6 months Functional Status Description No Information Available Mental Status Description No Information Available Referrals Description No Information Available
--- OUTSIDE RECORDS SUMMARY | 2019-09-09 12:50 | XMS REPORT | Summary of Care ---
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 Care Provider Reason for Visit Reason Comments Follow-up Encounter Details Date Type Department Care Team Description 08/08/2019 Office Visit Nima Stephenson, Psoriasis arthropathica ( Primary Dx); Rheumatology MD Matt High risk medication use [address] [id number] [place] [address] [phone] Allergies Active Allergy Reactions Severity Noted Date Comments Codeine 07/28/2016 documented as of this encounter (statuses as of 08/09/2019) Medications Medication Sig Dispensed Refills Start Date End Date Status acetaminophen Take 650 mg 0 Active (TYLENOL) 325 MG by mouth tablet every 6 (six) hours as needed for Pain. Glucosamine-Chondroit Take by 0 Active in (GLUCOSAMINE mouth. CHONDR COMPLEX PO) fluticasone 2 sprays by 0 Active (VERAMYST) 27.5 Nasal route MCG/SPRAY nasal spray daily. celecoxib (CELEBREX) Take 200 mg 0 Active 200 MG capsule by mouth Two Times Daily. omeprazole (PRILOSEC) Take 40 mg by 0 Active 40 MG capsule mouth daily. dicyclomine (BENTYL) Take 10 mg by 0 08/09/2016 Active 10 MG capsule mouth Three times daily with meals carbamazepine Take 100 mg 0 Active (TEGRETOL XR) 100 MG by mouth 12 hr tablet Three times daily ketorolac (ACULAR) 1 drop Four 0 Active 0.5 % ophthalmic times daily solution FIBER COMPLETE PO Take by mouth 0 Active Two Times Daily sucralfate (CARAFATE) 0 05/03/2018 Active 1 g tablet fluorometholone (FML) 0 03/13/2018 Active 0.1 % ophthalmic suspension Minocycline HCl 115 Take 1 tablet 5 10/12/2018 Active MG TB24 by mouth daily VESICARE 10 MG tablet Take 10 mg by 4 10/13/2018 Active mouth daily folic acid (FOLVITE) TAKE ONE 90 tablet 3 01/12/2019 Active 1 MG TABLET BY tabletIndications: MOUTH EVERY Psoriatic arthritis DAY LYRICA 50 MG capsule 0 01/31/2019 Active mesalamine (PENTASA) Take 1,000 mg 0 Active 250 MG CR capsule by mouth Two Times Daily BLACK COHOSH PO Take by mouth 0 Active adalimumab (HUMIRA Inject 0.4 2 each 2 05/16/2019 Active PEN) 40 MG/0.4ML mLs into the subcutaneous skin every 14 injection (pen) (fourteen) days methotrexate 2.5 MG TAKE 6 24 tablet 3 06/15/2019 Active tabletIndications: TABLETS BY Psoriatic arthritis MOUTH ONCE WEEKLY TURMERIC PO Take by mouth 0 Discontinued 9 methotrexate 2.5 MG 0 02/01/2019 Discontinued tablet 9 documented as of this encounter (statuses as of 08/09/2019) Active Problems No known active problemsdocumented as of this encounter (statuses as of 2018) Social History Tobacco Use Types Packs/Day Years Used Date Former Smoker Cigarettes Smokeless Tobacco: Never Used Tobacco Cessation: Counseling Given: No Alcohol Use Drinks/Week oz/Week Comments Yes 8 Standard drinks or equivalent 8.0 Sex Assigned at Date Recorded Not on file Job Start Date Occupation Industry Not on file Not on file Not on file Travel History Travel Start Travel End No recent travel history available. documented as of this encounter Last Filed Vital Signs Vital Sign Reading Time Taken Comments Blood Pressure 132/90 08/08/2019 3:29 PM EST Pulse 90 08/08/2019 3:29 PM EST Temperature 36.8 08/08/2019 3:29 PM EST C (98.2 F) Respiratory Rate 16 08/08/2019 3:29 PM EST Oxygen Saturation 96% 08/08/2019 3:29 PM EST Inhaled Oxygen Concentration - - Weight 80.3 kg (177 lb) 08/08/2019 3:29 PM EST Height 167.6 cm (5' 6") 08/08/2019 3:29 PM EST Body Mass Index 28.57 08/08/2019 3:29 PM EST documented in this encounter Progress Notes Matt Stephenson MD - 08/08/2019 3:30 PM EST Subjective: Patient ID: Marla Felton is a 64 y.o. female. Dictation on: 08/08/2019 4:09 PM by: MATT SNIDER [[id number]] HPI Marla has a past medical history of Allergic rhinitis, Gastroparesis, GERD ( gastroesophageal reflux disease), IBS (irritable bowel syndrome), Osteoarthritis , Raynaud's phenomenon, Rosacea, Trigeminalneuralgia, and Ulcerative colitis. Marla has a past surgical history that includes Cholecystectomy; Colectomy; Bladder suspension; Knee arthroscopy w/ meniscal repair (Right, 2017); and Joint replacement. Her family history includes Arthritis in her mother; Breast cancer (age of onset : 62) in her maternal grandmother; Cancer in her cousin, cousin, maternal aunt, and sister; Diabetes in her mother; Heartdisease in her mother; Hyperlipidemia in her mother; Leukemia in her maternal uncle; No Known Problems in her daughter , sister, sister, and son; Stroke in her mother. Marla reports that she has quit smoking. Her smoking use included cigarettes. She has never used smokeless tobacco. She reports current alcohol use of about 8.0 standard drinks of alcohol per week. She reports that she does not use drugs. Marla has a current medication list which includes the following prescription(s ): acetaminophen (tylenol) tablet, adalimumab, black cohosh, carbamazepine, celecoxib, dicyclomine, fiber, fluorometholone, fluticasone, folic acid, glucosamine-chondroitin, ketorolac, lyrica, mesalamine, methotrexate, methotrexate, minocycline hcl, omeprazole, sucralfate, turmeric, and vesicare. Marla is allergic to codeine. Review of Systems Constitutional: Negative. HENT: Negative. Eyes: Negative. Respiratory: Negative. Cardiovascular: Negative. Gastrointestinal: Negative. Endocrine: Negative. Genitourinary: Negative. Musculoskeletal: Negative for arthralgias and joint swelling. Skin: Negative. Allergic/Immunologic: Negative. Neurological: Negative. Hematological: Negative. Psychiatric/Behavioral: Negative. Objective: Physical Exam Vitals signs reviewed. Constitutional: Appearance: She is well-developed. HENT: Head: Normocephalic and atraumatic. Eyes: Conjunctiva/sclera: Conjunctivae normal. Neck: Thyroid: No thyromegaly. Trachea: No tracheal deviation. Cardiovascular: Rate and Rhythm: Normal rate and regular rhythm. Pulmonary: Effort: Pulmonary effort is normal. No respiratory distress. Musculoskeletal: General: No swelling or tenderness. Skin: General: Skin is warm and dry. Neurological: Mental Status: She is alert and oriented to person, place, and time. documented in this encounter Plan of Treatment Date Type Specialty Care Team Description 10/10/2019 Appointment Radiology Ethel Edge MD [address], [place] [address] [phone] 10/10/2019 Appointment Radiology Ethel Edge MD [address], [place] [address] [phone] 10/10/2019 Office Visit Breast Surgery Ethel Edge MD [address], [place] [address] [phone] 12/11/2019 Office Visit Rheumatology Matt Stephenson MD [address] [place] [address] [address] [place] [address] [phone] Health Maintenance Due Date Last Done Comments MMR Vaccines (1 of 1 - 1958 Standard series) DTaP,Tdap,and Td Vaccines 1964 (1 - Tdap) HIV Screening 1970 Cervical Cancer Screening 5 1978 years Colon Cancer Screening 10 2007 yrs Zoster Vaccines (1 of 2) 2007 Influenza Vaccine 06/26/2019 Breast Cancer Screening 2 06/27/2021 06/27/2019, 05/30/2019, years 02/06/2018, Additional history exists Pneumococcal Vaccine: 65+ 2022 Years (1 of 2 - PCV13) Hepatitis C Screening (B. Completed 02/21/2019 [id number]) HIB Vaccines Aged Out No longer eligible based on patient's age to complete this topic Hepatitis A Vaccines Aged Out No longer eligible based on patient's age to complete this topic Hepatitis B Vaccines Aged Out No longer eligible based on patient's age to complete this topic IPV Vaccines Aged Out No longer eligible based on patient's age to complete this topic Pneumococcal Vaccine: Aged Out No longer eligible Pediatrics (0 to 5 Years) based on patient's age and At-Risk Patients (6 to to complete this topic 64 Years) Varicella Vaccines Aged Out No longer eligible based on patient's age to complete this topic documented as of this encounter Procedures Procedure Name Priority Date/Time Associated Comments Diagnosis CREATININE WITH GFR Routine 08/08/2019 3:54 High risk Results for this PM EST medication use procedure are in the results section. SEDIMENTATION RATE, Routine 08/08/2019 3:54 High risk Results for this AUTOMATED PM EST medication use procedure are in the results section. CBC AND DIFFERENTIAL Routine 08/08/2019 3:54 High risk Results for this PM EST medication use procedure are in the results section. C-REACTIVE PROTEIN Routine 08/08/2019 3:54 High risk Results for this PM EST medication use procedure are in the results section. ALT Routine 08/08/2019 3:54 High risk Results for this PM EST medication use procedure are in the results section. AST Routine 08/08/2019 3:54 High risk Results for this PM EST medication use procedure are in the results section. documented in this encounter Results Sedimentation rate, automated (08/08/2019 3:54 PM EST) Sed Rate - ESR 16 <30 mm/hr [facility] Pathology Specimen EDTA Whole Blood Performing Organization Address City/State/Zipcode Phone Number [facility] [address] [place] [address] [facility] [address] [place] [address] Pathology Creatinine with GFR (08/08/2019 3:54 PM EST) Creatinine 0.67 0.50 - 0.90 [facility] mg/dL Univ Clin Pathology GFR Non >90 >60 [facility] [place] 2009 CDK-EPI mL/min/1.73m2 [facility] Clin Pathology GFR >90 >60 [facility] 2009 CKD-EPI mL/min/1.73m2 [facility] Clin Pathology Specimen Plasma Performing Organization Address [facility] Phone [facility] [address] [place] [address] [facility] [address] [place] [address] Pathology C-reactive protein (08/08/2019 3:54 PM EST) C Reactive Protein 4.8 <8.0 mg/L [facility] Pathology Specimen Plasma Performing Organization Address [facility] Phone Number [facility] [address] [place] [address] [phone] [facility] [address] [place] [address] Pathology CBC and Differential (08/08/2019 3:54 PM EST) White Blood Cell 7.0 4 - 10 [facility] 10*3/uL [facility] Pathology Red Blood Cell 3.76 (L) 4.1 - 5.3 [facility] 10*6/uL [facility] Clin Pathology Hemoglobin 12.1 11.5 - 15.5 [facility] g/dL [facility] Pathology Hematocrit 36.5 36 - 45 % [facility] Pathology Mean Cell Volume 97.1 (H) 80 - 96 fL [facility] Clin Pathology Mean Cell Hemoglobin 32.0 27 - 33 pg [facility] Pathology Mean Cell Hgb Conc 33.0 32.0 - 36.0 [facility] g/dL [facility] Pathology Red Cell Dist Width 14.2 11.5 - 14.5 % [facility] Pathology Platelet Count 317 150 - 400 [facility] 10*3/uL [facility] Clin Pathology Differential Type Automated Diff [facility] Pathology Neutrophil 46 % [facility]ology Lymphocyte 45 % [facility]ology Monocyte 7 % [facility] Pathology Eosinophil 2 % [facility] Pathology Basophil 0 % [facility] Pathology Abs Neutrophil 3.21 1.8 - 7.0 [facility] 10*3/uL Univ Clin Pathology Abs Lymphocyte 3.12 1.2 - 4.0 [facility] 10*3/uL [facility] Clin Pathology Abs Monocyte 0.47 0 - 0.8 [facility] 10*3/uL [facility] Clin Pathology Abs Eosinophil 0.15 0 - 0.5 [facility] 10*3/uL [facility] Clin Pathology Abs Basophil 0.03 0 - 0.2 [facility] 10*3/uL [facility] Clin Pathology Nucleated Red Blood 0 0 - 0 [facility] Cells /100{WBCs} [facility] Clin Pathology Specimen EDTA Whole Blood Performing Organization Address City/[facility] Phone Number [facility] [address] [place] [address] [facility] [address] [place] [address] Pathology AST (08/08/2019 3:54 PM EST) AST/SGO 18 <32 U/L [facility] Pathology Specimen Plasma Performing Organization Address City/[facility] Phone Number [facility] [address] [place] [address] [facility] [address] [place] [address] Pathology ALT (08/08/2019 3:54 PM EST) ALT/SGP 19 <33 U/L [facility] Pathology Specimen Plasma Performing Organization Address [facility] Phone Number [facility] [address] [place] [address] [facility] [address] [place] [address] Pathology documented in this encounter Visit Diagnoses Diagnosis Psoriasis arthropathica - Primary Psoriatic arthropathy High risk medication use Encounter for long-term (current) use of other medications documented in this encounter
--- NOTE | 2019-09-09 12:57 | UC ---
Abdominal Pain Female HPI - HPI Summary HPI Summary: 64 yo female presents with abdominal pain. She tells me that around 08/20 she developed lower abdominal pain and cramping with loose stools. She has had multiple episodes of diverticulitis in the past and has had to have a colon resection due to this in the past. She called her PCP and was placed on anbx. Pt then went to [place] on vacation for a week and reports that her symptoms did not change. Since returning she has had continued lower abdominal pain, watery diarrhea about 6-7 times a day, nausea, headache, and abdominal bloating. She is eating, but states she does not feel like eating. Denies fever, chills, SOB, chest pain, blood in stool, dysuria, back or flank pain. - History of Current Complaint Stated Complaint: NAUSEA,JOHNSON,DIARRHEA Time Seen by Provider: 09/09/19 12:55 Hx Obtained From: Patient Hx Last Menstrual Period: n/a Onset/Duration: Sudden Onset Timing: Constant Severity Initially: Moderate Severity Currently: Moderate Pain Intensity: 5 Pain Scale Used: 0-10 Numeric Allergies/Adverse Reactions: Allergies Allergy/AdvReac Type Severity Reaction Status Date / Time codeine Allergy Nausea And Verified 09/09/19 13:09 Vomiting PMH/Surg Hx/FS Hx/Imm Hx - Additional Past Medical History Additional PMH: Trigeminal neuralgia Diverticulitis GI/ History: Gastroesophageal Reflux - Surgical History Surgical History: Yes Surgery Procedure, Year, and Place: RIGHT TOTAL KNEE REPLACEMENT 07/2017. HEMORRHOIDECTOMY, [facility]. MENISCUS SURGERY RIGHT KNEE [facility] 10/2016. BLADDER SLING. [facility]. COLON RESECTION, [facility]. LAPAROSCOPIC GALLBLADDER REMOVAL, [facility]. ARTHROSCOPY LEFT KNEE , [place]. CERVICAL SURGERY - SEWN CERVIX DURING PREG. AGE 10 , EXCISION OF CYST FROM LEFT KNEE, - Family History Known Family History: Positive: Hypertension - Social History Lives: With Family Alcohol Use: Occasionally Alcohol Amount: 5-7 DRINKS/WEEK Substance Use Type: None Smoking Status (MU): Former Smoker Type: Cigarettes Amount Used/How Often: 1 PPD FOR ABOUT 20 YEARS Length of Time of Smoking/Using Tobacco: 20 YRS Have You Smoked in the Last Year: No When Did the Patient Quit Smoking/Using Tobacco: 2004 - Immunization History Most Recent Influenza Vaccination: NONE Most Recent Pneumonia Vaccination: NONE Review of Systems All Other Systems Reviewed And Are Negative: No Constitutional: Positive: Negative Skin: Positive: Negative Eyes: Positive: Negative ENT: Positive: Negative Respiratory: Positive: Negative Cardiovascular: Positive: Negative Gastrointestinal: Positive: Abdominal Pain, Diarrhea, Nausea Genitourinary: Positive: Negative Motor: Positive: Negative Neurovascular: Positive: Negative Musculoskeletal: Positive: Negative Neurological: Positive: Headache Psychological: Positive: Negative Physical Exam - Summary Physical Exam Summary: GENERAL: NAD. WDWN. No pain distress. SKIN: No rashes, sores, lesions, or open wounds. NECK: Supple. Nontender. No lymphadenopathy. CHEST: CTAB. No r/r/w. No accessory muscle use. Breathing comfortably and in no distress. CV: RRR. Pulses intact. Cap refill <2seconds ABDOMEN: Soft. NTTP. Mild bloating. No CVA tenderness. Bowel sounds present NEURO: Alert. PSYCH: Age appropriate behavior. Triage Information Reviewed: Yes Vital Signs: Vital Signs: Temp Pulse Resp BP Pulse Ox 98 F 66 16 141/70 98 09/09/19 13:13 09/09/19 13:13 09/09/19 13:13 09/09/19 13:13 09/09/19 13:13 Laboratory Tests 09/09/19 13:25 POC Urine Color Yellow POC Urine Clarity Clear POC Urine pH 5.0 POC Ur Specif Gary 1.010 POC Urine Protein Negative POC Ur Glucose (UA) Negative POC Urine Ketones Negative POC Urine Blood Negative POC Urine Nitrite Negative POC Urine Bilirubin Negative POC Urine Urobilinogen 0.2 POC U Leukocyte Esteras Negative Vital Signs Reviewed: Yes Abd Pain Female Course/Dx - Course Course Of Treatment: Given her prolonged symptoms and failure of anbx for treatment of diverticulitis - I recommended that she undergo stool culture studies and a CT to further evaluate her symptoms. Given her multiple abdominal surgeries in the past, I believe she will require po/IV contrast for her CT and recommended that she go to the ER for further evaluation. She was agreeable to this and will go there now with her daughter. - Differential Dx/Diagnosis Provider Diagnosis: Abdominal pain, Diarrhea Discharge ED - Sign-Out/Discharge Documenting (check all that apply): Patient Departure All imaging exams completed and their final reports reviewed: No Studies - Discharge Plan Condition: Stable Disposition: HOME-RECOMMEND TO ED Referrals: Sejal Cheng [Primary Care Provider] - Additional Instructions: Please go to the ER for further evaluation of your abdominal pain - Billing Disposition and Condition Condition: STABLE Disposition: Home-Recommend to ED
[2019-09-09 13:20] VITALS: BP 141/70
== END 2019-09-09 13:41 | disposition home health service (06) ==
LOC: UCCORT 12:45
DX: R10.9 Unspecified abdominal pain (principal); R19.7 Diarrhea, unspecified; K57.92 Diverticulitis of intestine, part unspecified, without perforation or abscess without bleeding; G50.0 Trigeminal neuralgia; R11.0 Nausea; R51 Headache; Z88.5 Allergy status to narcotic agent; Z87.891 Personal history of nicotine dependence
CPT/HCPCS: 81003; 99212; G0463

== ENCOUNTER 2022-06-22 10:06 | Observation (INO) ==
[~2022-06-22 10:06] MED LIST changes: -Buffered Lidocaine 0.9% SYRIN* 5 ML/SYR SYRINGE INTRADERM ONE; +Buffered Lidocaine 1% SYRIN 1 ml INTRADERM ONE; +Famotidine IV 10 MG/ML 2 ml VIAL (20 mg) IV ONE; -Famotidine IV* 10 MG/ML 2 ML (20 mg) IV ONE; +Lactated Ringers 1000 ml BAG 1,000 ML IV SCH; +Metoclopramide 5 MG/ML VIAL (10 mg) IV SLOW PU ONE; -Metoclopramide TAB* 10 MG PO ONE; -Scopolamine 1.5 mg* PATCH TRANSDERM ONE
[2022-06-22] MEDS ORDERED: Metoclopramide 5 MG/ML VIAL (10 mg) ONE (10:36)
[2022-06-22] MEDS ORDERED: Famotidine IV 10 MG/ML 2 ml VIAL (20 mg) ONE (10:36)
[2022-06-22] MEDS ORDERED: ceFAZolin 2 GM in NS PREMIX 2 GM/100 ML BAG IVPB ONE (10:37)
[2022-06-22] MEDS ORDERED: Midazolam 2 mg/2 ml VIAL 1 mg/ml 2 ml VIAL (2 mg) ONE (11:53)
[2022-06-22] MEDS ORDERED: fentaNYL 100 mcg/2 ml 50 MCG/ML VIAL ONE ×2 (11:53→15:45)
[2022-06-22] MEDS ORDERED: ROPIVACAINE 5 MG/ML 30 ML BTL (0.5%) ONE (11:54)
[2022-06-22] MEDS ORDERED: Naloxone 0.4 mg VIAL 0.4 mg/ml 1 ml VIAL IV PRN (12:34)
[2022-06-22] MEDS ORDERED: oxyCODONE/Acetamin 5/325 mg TAB PO PRN (12:34)
[2022-06-22] MEDS ORDERED: Ropivacaine 5 MG/ML 20 ML VIAL 0.5% (100 MG) ONE (12:56)
[2022-06-22] MEDS ORDERED: Ondansetron 4 mg VIAL 2 MG/ML 2 ml VIAL ONE (15:04)
[2022-06-22] MEDS ORDERED: Dexamethasone IV 4 MG/ML VIAL 1 ml VIAL ONE (15:04)
[2022-06-22] MEDS ORDERED: Ondansetron ODT 4 mg TAB 4 MG TAB PO PRN (15:35)
[2022-06-22] MEDS ORDERED: Lactulose 30 ml UDC PO PRN (15:35)
[2022-06-22] MEDS ORDERED: Morphine 2 MG/ML SYRINGE IV PRN (15:35)
[2022-06-22] MEDS ORDERED: Magnesium Hydroxide LIQ 30 ML UDC PO PRN (15:35)
[2022-06-22] MEDS ORDERED: Ondansetron 4 mg VIAL 2 MG/ML 2 ml VIAL IV PRN (15:35)
[2022-06-22] MEDS: fentaNYL 100 mcg/2 ml 50 MCG/ML VIAL IV PRN ×2 (15:51→16:18)
[2022-06-22] MEDS ORDERED: HYDROmorphone 1 MG/1 ML SYRINGE ONE (16:36)
[2022-06-22] MEDS: HYDROmorphone 1 MG/1 ML SYRINGE IV PRN ×2 (16:38→16:46)
[2022-06-22] MEDS: Lactated Ringers 1000 ml BAG 1,000 ML IV SCH (17:53)
[2022-06-22] MEDS ORDERED: Butalb/Acetamin/Caff TAB 325-50-40MG PO PRN (18:43)
[2022-06-22] MEDS: CMCS: Solifenacin 5 mg TAB (NF) PO SCH (21:22)
[2022-06-22] MEDS: TERBINAFINE HCL 250 MG PO SCH (21:22)
[2022-06-22] MEDS: ceFAZolin 1 GM ADVAN 1 GM in NS 0.9% 50 ML 50 ML IVPB SCH (21:22)
[2022-06-22] MEDS: Magnesium Hydroxide LIQ 30 ML UDC PO SCH (21:25)
[2022-06-23] MEDS: ceFAZolin 1 GM ADVAN 1 GM in NS 0.9% 50 ML 50 ML IVPB SCH ×2 (04:09→13:10)
[2022-06-23] MEDS: Lactated Ringers 1000 ml BAG 1,000 ML IV SCH (04:10)
[2022-06-23 05:06] LABS: Hematocrit 31 % (35-47); Hemoglobin 10.7 g/dL (12.0-16.0); Mean Platelet Volume 7.4 fL (7.4-10.4); Platelet Count 285 10^3/uL (150-450)
[2022-06-23 05:30] LABS: Calcium 8.1 mg/dL (8.6-10.3); Potassium 4.5 mmol/L (3.5-5.0); eGFR CKD-EPI 96.9 (>60)
[2022-06-23] MEDS: Vitamin THERAPEUTIC TAB PO SCH (07:38)
[2022-06-23] MEDS: Magnesium Hydroxide LIQ 30 ML UDC PO SCH ×2 (07:39→21:53)
[2022-06-23] MEDS: Enoxaparin 40 MG/0.4 ML SYR SUBCUT SCH (13:11)
[2022-06-23] MEDS: TERBINAFINE HCL 250 MG PO SCH (19:55)
[2022-06-23] MEDS: CMCS: Solifenacin 5 mg TAB (NF) PO SCH (19:55)
[2022-06-24 06:15] LABS: Hematocrit 29 % (35-47); Hemoglobin 9.9 g/dL (12.0-16.0); Mean Platelet Volume 6.9 fL (7.4-10.4); Platelet Count 271 10^3/uL (150-450)
[2022-06-24 06:54] LABS: Calcium 8.3 mg/dL (8.6-10.3); Potassium 4.6 mmol/L (3.5-5.0); eGFR CKD-EPI 99.8 (>60)
[2022-06-24 09:16] LABS: Osmolality Serum 264 mOsm/kg (275-295)
[2022-06-24] MEDS: Magnesium Hydroxide LIQ 30 ML UDC PO SCH (09:17)
[2022-06-24] MEDS: Vitamin THERAPEUTIC TAB PO SCH (09:17)
[2022-06-24 10:42] LABS: Urine Osmo 370 mOsm/kg (150-1150)
[2022-06-24] MEDS: Enoxaparin 40 MG/0.4 ML SYR SUBCUT SCH (11:28)
[2022-06-24 15:35] VITALS: BP 167/77
== END 2022-06-24 17:40 | disposition home or self-care (01) ==
LOC: AA 10:06 → INTOOBSV 10:06 → SSU 17:57
PROVIDERS: ADMIT Orthopaedic Surgery Adult Reconstructive Orthopaedic Surgery; ATTEND Orthopaedic Surgery Adult Reconstructive Orthopaedic Surgery